=== PATIENT | female | born 1955 | race Caucasian/White ===

== ENCOUNTER → 2017-07-22 | Outpatient (CLI) | payer OTHER ==
[~2017-07-22] MED LIST: ACET-1256 PO; ALLERGY SHOTS INJ; ARMO150T4 PO; ARMO250T5 PO; ASCO1CAP3 PO; ASPI-435 PO; ASPI81TA28 PO; ATV5 PO; BACL10TA PO; BCTCR EXT; BND25X PO; BNTHP PO; CALCTAB5 PO; CHOL100010 PO; CLBCR15 EXT; CMBIN INH; CMPS25 PR; COLC0.6T54 PO; CRAN1CAP16 PO; CRS/10 PO; CYAN100048 PO; DIPH-384 PO; DOUNEB INH; DTRSR4 PO; EPP3/2 IM; EYED OP; FLUT0.15 NAE; GABA-112 PO; HYDR-5688 PO; INSPMPHMLG; IPRA1AER2 INH; LACTCAP3 PO; LEVO125T5 PO; LRS10 PO; MAGNSOL13 PO; MELO15TA10 PO; MISCCAP80 PO; MONT1TAB3 PO; NRN/300 PO; OMEG10002 PO; OMEG10007 PO; ONDA4TAB10 SL; OXGN; PILO5TAB10 PO; PRMVC PV; PROC10TA PO; PROM25TA9 PO; RANI300T PO; RANI300T2 PO; ROSU5TAB PO; SERT-234 PO; SPRIN/30 INH; SYMIN/8045 INH; SYN125 PO; TIOTCAP INH; TRAM-10 PO; VITATAB11 PO; VLM5CL PO; [UNRECOGNIZED DRUG - OTHER] PO
--- NOTE | 2017-07-23 14:36 | MAMMOGRAPHY REPORT ---
BILATERAL DIGITAL SCREENING MAMMOGRAM TOMOSYNTHESIS WITH CAD: 07/22/2017 CLINICAL HISTORY: Routine screening examination. TECHNIQUE: Breast tomosynthesis in addition to standard 2D mammography was performed. Current study was also evaluated with a Computer Aided Detection (CAD) system. COMPARISON: Comparison is made to exams dated: 04/18/2015 mammogram, 10/12/2014 mammogram, 01/18/2014 ul trasound, 01/18/2014 mammogram, 01/15/2014 mammogram, and 01/11/2013 mammogram - [facility] nter. BREAST COMPOSITION: The tissue of both breasts is heterogeneously dense, which may obscure small mas ses. FINDINGS: The glandular pattern is similar to prior mammograms. There are diffuse bilateral benign-a ppearing coarse, punctate and round microcalcifications. No suspicious mass, architectural distortio n or cluster of suspicious microcalcifications is seen. IMPRESSION: ACR BI-RADS CATEGORY 1: NEGATIVE There is no mammographic evidence of malignancy. A 1 year screening mammogram is recommended. The pa tient will receive written notification of the results. Approximately 10% of breast cancers are not detected with mammography. A negative mammographic report should not delay biopsy if a clinically suggestive mass is present. Vanessa Edmondson M.D. ay/:07/22/2017 14:21:26 Data Entry Machine Operator: Kasey HIRSCH(Heriberto)(M), [facility] letter sent: Normal 1/2 BI-RADS Code: ACR BI-RADS Category 1: Negative
== END | disposition home or self-care (01) ==
LOC: C.MAMM 13:02
PROVIDERS: ATTEND Family Medicine
DX: Z12.31 Encounter for screening mammogram for malignant neoplasm of breast (principal)

== ENCOUNTER 2017-08-21 13:48 | Emergency (ER) | payer OTHER ==
[~2017-08-21] VITALS: Ht 167.6 cm; Wt 110.0 kg
[~2017-08-21 13:48] MED LIST changes: -ARMO150T4 PO; -ASCO1CAP3 PO; -ASPI-435 PO; -BACL10TA PO; -CMPS25 PR; -COLC0.6T54 PO; -CRAN1CAP16 PO; -CRS/10 PO; -CYAN100048 PO; -DIPH-384 PO; -DTRSR4 PO; -FLUT0.15 NAE; -IPRA1AER2 INH; -LEVO125T5 PO; -MELO15TA10 PO; -MISCCAP80 PO; -MONT1TAB3 PO; -NRN/300 PO; -OMEG10002 PO; -ONDA4TAB10 SL; -OXGN; -PROC10TA PO; -PROM25TA9 PO; -RANI300T2 PO; -SPRIN/30 INH; -SYMIN/8045 INH
[2017-08-21 13:52] VITALS: TEMP 36.7; Ht 167.6 cm; Wt 110.0 kg
[2017-08-21] MEDS ORDERED: SODIUM CHLORIDE 0.9% 1000ML 1,000 ML IV STA (14:04)
[2017-08-21] MEDS ORDERED: ONDANSETRON INJ 2 MG/ML 2 ML VIAL IV STA (14:04)
--- NOTE | 2017-08-21 14:30 | DIAGNOSTIC IMAGING REPORT ---
CHEST ONE VIEW PORTABLE CLINICAL HISTORY: Fever. Sepsis. COMPARISON STUDY: Chest radiograph July 18, 2014. FINDINGS: Lung volumes are diminished. There is no consolidation. Lower lung interstitial thickening may be related to a hypoventilatory study. Cardiomediastinal silhouette is stable. The appearance of the chest is similar to exam of December 01, 2009. IMPRESSION: Lower lung interstitial thickening which is likely related to a hypoventilatory study. No acute cardiopulmonary findings. Electronically signed by: Sebastian Avendano M.D. 08/21/2017 2:28 PM Dictated Date/Time: 08/21/2017 2:27 PM
[2017-08-21 14:32] LABS: BASO % 0.1 %; BASO ABS # 0.01 K/uL (0-0.2); HEMATOCRIT 42.7 % (37-47); HEMOGLOBIN 14.2 g/dL (12.0-16.0); IG# 0.03 K/uL (0.00-0.02); LYMPH % 13.6 %; LYMPH ABS # 0.99 K/uL (1.2-3.4); MEAN CORPUSCULAR HEMOGLOBIN 29.3 pg (25-34); MEAN CORPUSCULAR HGB CONC 33.3 g/dl (32-36); MEAN PLATELET VOLUME 10.6 fL (7.4-10.4); MONO % 4.9 %; MONO ABS # 0.36 K/uL (0.11-0.59); NEUT ABS # 5.89 K/uL (1.4-6.5); PLATELET COUNT 221 K/uL (130-400); RED CELL DISTRIBUTION WIDTH SD 47.7 fL (36.4-46.3); WHITE BLOOD COUNT 7.28 K/uL (4.8-10.8)
[2017-08-21] MEDS ORDERED: KETOROLAC TROMETHAMINE 30 MG/ML VIAL IV STA (14:38)
[2017-08-21 14:48] LABS: ALBUMIN 3.6 gm/dl (3.4-5.0); ALT/SGPT 42 U/L (12-78); BLOOD UREA NITROGEN 22 mg/dl (7-18); CALCIUM 8.7 mg/dl (8.5-10.1); CARBON DIOXIDE 28 mmol/L (21-32); CREATININE 0.83 mg/dl (0.60-1.20); GLUCOSE 310 mg/dl (70-99); LIPASE 58 U/L (73-393); POTASSIUM 3.4 mmol/L (3.5-5.1); SODIUM 140 mmol/L (136-145)
[2017-08-21 14:50] LABS: PTT PATIENT 26.1 SECONDS (21.0-31.0)
[2017-08-21 14:51] LABS: ALKALINE PHOSPHATASE 84 U/L (45-117); AST/SGOT 28 U/L (15-37)
[2017-08-21 14:58] LABS: CKMB 1.5 ng/ml (0.5-3.6)
[2017-08-21] MEDS ORDERED: LEVO125T5 PO (15:04)
[2017-08-21] MEDS ORDERED: SERT-234 PO (15:04)
[2017-08-21] MEDS ORDERED: NRN/300 PO (15:04)
[2017-08-21] MEDS ORDERED: CRAN1CAP16 PO (15:04)
[2017-08-21] MEDS ORDERED: BACL10TA PO (15:04)
[2017-08-21] MEDS ORDERED: OMEG10002 PO (15:04)
[2017-08-21] MEDS ORDERED: TRAM-10 PO (15:04)
[2017-08-21] MEDS ORDERED: IPRA1AER2 INH (15:04)
[2017-08-21] MEDS ORDERED: CRS/10 PO (15:04)
[2017-08-21] MEDS ORDERED: ARMO150T4 PO (15:04)
[2017-08-21] MEDS ORDERED: RANI300T2 PO (15:04)
[2017-08-21] MEDS ORDERED: FLUT0.15 NAE (15:04)
[2017-08-21] MEDS ORDERED: MELO15TA10 PO (15:04)
[2017-08-21] MEDS ORDERED: PRMVC PV (15:04)
[2017-08-21] MEDS ORDERED: MONT1TAB3 PO (15:04)
[2017-08-21] MEDS ORDERED: VITATAB11 PO (15:04)
[2017-08-21] MEDS ORDERED: SYMIN/8045 INH (15:04)
[2017-08-21] MEDS ORDERED: ASCO1CAP3 PO (15:04)
[2017-08-21] MEDS ORDERED: MISCCAP80 PO (15:04)
[2017-08-21] MEDS ORDERED: SPRIN/30 INH (15:04)
[2017-08-21] MEDS ORDERED: DIPH-384 PO (15:04)
[2017-08-21] MEDS ORDERED: CYAN100048 PO (15:04)
[2017-08-21] MEDS ORDERED: DTRSR4 PO (15:04)
[2017-08-21] MEDS ORDERED: PILO5TAB10 PO ×2 (15:04)
[2017-08-21] MEDS ORDERED: OXGN (15:04)
[2017-08-21] MEDS ORDERED: ASPI-435 PO (15:04)
[2017-08-21] MEDS ORDERED: PROM25TA9 PO (15:04)
[2017-08-21] MEDS ORDERED: COLC0.6T54 PO (15:04)
[2017-08-21] MEDS ORDERED: PROC1TAB5 PO (15:04)
[2017-08-21 15:14] LABS: INFLUENZA B ANTIGEN Neg for Influ B (NEG)
[2017-08-21] MEDS ORDERED: ONDA4TAB10 SL (16:02)
[2017-08-21] MEDS ORDERED: PROCHLORPERAZINE 5 MG/ML 2 ML VIAL IV STA (16:09)
[2017-08-21] MEDS ORDERED: CMPS25 PR (16:11)
--- NOTE | 2017-08-21 16:14 | EMERGENCY ROOM VISIT NOTE ---
History Report prepared by Shannan: Bobby Willett Under the Supervision of: Dr. Adam Andre D.O. First contact with patient: 13:58 Chief Complaint: FLU LIKE SX Stated Complaint: NAUSEA,VOMITING,FATIGUE,CHILLS,SWEATS,DIZZINESS History of Present Illness The patient is a 61 year old female who presents to the Emergency Room with complaints of flu like symptoms that began 2 weeks ago. She complains of nausea , vomiting, dizziness, chills, cough, congestion, sweating, and abdominal pain. She states she has lost 14 pounds in 5 days due to limited PO intake due to the nausea. Per her , he states that she is on medication for scleredema and that the medication might be compromising her immune system. When she saw her PCP (Dr. Luiza Leon) last week, she was prescribed Levaquin. Source of History: patient, spouse/significant other Onset: 2 weeks ago Position: other (global) Timing: constant Associated Symptoms: + chills, + cough, + nausea, + vomiting, + abdominal pain Note: Patient complains of dizziness, congestion, sweating, and limited PO intake. Review of Systems See HPI for pertinent positives & negatives. A total of 10 systems reviewed and were otherwise negative. Past Medical & Surgical Medical Problems: (1) DM (diabetes mellitus) Social History Smoking Status: Never Smoker Alcohol Use: none Drug Use: none Marital Status: single Occupation Status: unemployed Current/Historical Medications Scheduled Armodafinil (Nuvigil), 1 TAB PO UD Ascorbic Acid (Vitamin C), 500 MG PO QAM Aspirin (Aspirin 81), 81 MG PO QPM Baclofen (Lioresal), 20 MG PO BID Budesonide/Formoterol Fumarate (Symbicort 80/4.5 Inhaler), 2 PUFFS INH BID Colchicine (Colchicine), 0.6 MG PO AMPM Cranberry (Vaccinium Macrocarp (Cranberry), 1 CAP PO QAM Cyanocobalamin (Vitamin B-12), 1,000 MG PO QAM Diphenhydramine Hcl (Allergy), 25 MG PO QAM Estrogens, Conjugated (Premarin), 1 APPLN PV 2XWK Fluticasone Propionate (Nasal) (Flonase Allergy Relief), 2 SPRAYS MIRNA AMPM Gabapentin (Neurontin), 300 MG PO AMPM Home O2 Therapy (Oxygen), 2 LITERS NA HS Levothyroxine Sodium (Levothyroxine Sodium), 125 MCG PO DAILY Meloxicam (Mobic), 15 MG PO QAM Montelukast Sodium (Singulair), 10 MG PO QPM Isabela-3 Fatty Acids (Fish Oil), 1,000 MG PO AMPM Ondasetron Odt (Zofran Odt), 4 MG SL Q6H Pilocarpine (Salagen), 10 MG PO QAM Pilocarpine (Salagen), 5 MG PO QPM Probiotic Product (Probiotic), 1 CAP PO BID Prochlorperazine (Compazine Supp), 25 MG MD Q12H Prochlorperazine Maleate (Compazine), 10 MG PO BID Promethazine Hcl (Phenergan), 25 MG PO QAM Ranitidine Hcl (Zantac), 300 MG PO AMPM Rosuvastatin Calcium (Crestor), 10 MG PO QAM Sertraline (Zoloft), 200 MG PO QPM Tiotropium Raymond (Spiriva Handihaler), 1 CAP INH DAILY Tolterodine Tartrate (Detrol LA), 4 MG PO QAM Scheduled PRN Ipratropium-Albuterol (Combivent Respimat), 1 PUFFS INH UD PRN for SOB/Wheezing Tramadol (Ultram), 50 MG PO UD PRN for Pain Vitamins W/ Lipotropics (Lipoflavonoid), 1 TAB PO UD PRN for TINITUS Allergies Coded Allergies: Albuterol (Verified Allergy, Severe, SHORTNESS OF BREATH, 08/21/17) pt reports fast heartbeat, chest pain, trouble breathing, lightheadedness Aspirin (Verified Allergy, Intermediate, "SEVERE STOMACH CRAMPS, PAIN, SWELLING, NAUSEA, BELCHING", 08/21/17) pt reports stomach cramps, pain, swelling, nausea, "bowel issues" and belching Azithromycin (Verified Allergy, Mild, 08/21/17) Duloxetine (Verified Allergy, Mild, 08/21/17) Fluoxetine (Verified Allergy, Mild, 08/21/17) Oxycodone (Verified Allergy, Mild, 08/21/17) Propoxyphene (Verified Allergy, Mild, 08/21/17) Ropinirole (Verified Allergy, Mild, 08/21/17) Animal Dander (Verified Allergy, Unknown, ., 08/21/17) Beech Tree (Verified Allergy, Unknown, UNKNOWN, 08/21/17) [place] (Verified Allergy, Unknown, UNKNOWN, 08/21/17) Celecoxib (Verified Allergy, Unknown, ., 08/21/17) Cephalexin (Verified Allergy, Unknown, ., 08/21/17) Clarithromycin (Verified Allergy, Unknown, ., 08/21/17) Clindamycin (Verified Allergy, Unknown, ., 08/21/17) Dust (Verified Allergy, Unknown, ., 08/21/17) Erythromycin (Verified Allergy, Unknown, 08/21/17) Grass (Verified Allergy, Unknown, ., 08/21/17) Indigotindisulfonate (Verified Allergy, Unknown, ., 08/21/17) Maple Tree (Verified Allergy, Unknown, UNKNOWN, 08/21/17) Molds and Smuts (Verified Allergy, Unknown, ., 08/21/17) Nortriptyline (Verified Allergy, Unknown, ., 08/21/17) Paroxetine (Verified Allergy, Unknown, ., 08/21/17) Pregabalin (Verified Allergy, Unknown, ., 08/21/17) Venlafaxine (Verified Allergy, Unknown, ., 08/21/17) Sumatriptan (Verified Adverse Reaction, Severe, "SEVERE JAW AND FACE LOCKING PAIN", 08/21/17) pt reports "severe jaw and face locking pain" Doxycycline (Verified Adverse Reaction, Intermediate, EXTREME STOMACH PAIN , ANKLE & LEG SWELLING, 08/21/17) pt reports stomach pain and ankle/leg swelling Metoclopramide (Verified Adverse Reaction, Intermediate, "EXTREME MUSCLE SPASMS IN LEGS, EARS, AND STOMACH", 08/21/17) pt states she experienced muscle spasm in legs, ears and stomach Morphine (Verified Adverse Reaction, Intermediate, "FELT DIZZY, NAUSEOUS, LOSS OF MYSELF", 08/21/17) pt reports feeling dizzy, nausea, and "loss of myself" Azelastine (Verified Adverse Reaction, Unknown, NOSE BLEEDS, 08/21/17) nasal spray causes nose bleeds Physical Exam Vital Signs Date Time Temp Pulse Resp B/P (MAP) Pulse Ox O2 Delivery O2 Flow Rate FiO2 08/21/17 16:05 74 20 164/66 93 Room Air 08/21/17 15:16 72 08/21/17 13:52 36.7 78 18 155/77 94 Room Air Physical Exam CONSTITUTIONAL/VITAL SIGNS: Reviewed / noted above. GENERAL: Non-toxic in appearance. INTEGUMENTARY: Warm, dry, and [place]. HEAD: Normocephalic. EYES: without scleral icterus or trauma. ENT/OROPHARYNX: clear and moist. LYMPHADENOPATHY/NECK: Is supple without lymphadenopathy or meningismus. RESPIRATORY: Lungs clear and equal. CARDIOVASCULAR: Regular rate and rhythm. GI/ABDOMEN: Soft and nontender. No organomegaly or pulsatile mass. No rebound or guarding. Normal bowel sounds. EXTREMITIES: Warm and well perfused. BACK: No CVA tenderness. NEUROLOGICAL: Intact without focal deficits. PSYCHIATRIC: normal affect. MUSCULOSKELETAL: Normally developed with good muscle tone. Medical Decision & Procedures ER Provider Diagnostic Interpretation: Radiology results as stated below per my review and radiologist interpretation: CHEST ONE VIEW PORTABLE CLINICAL HISTORY: Fever. Sepsis. COMPARISON STUDY: Chest radiograph July 18, 2014. FINDINGS: Lung volumes are diminished. There is no consolidation. Lower lung interstitial thickening may be related to a hypoventilatory study. Cardiomediastinal silhouette is stable. The appearance of the chest is similar to exam of December 01, 2009. IMPRESSION: Lower lung interstitial thickening which is likely related to a hypoventilatory study. No acute cardiopulmonary findings. Electronically signed by: Sebastian Avendano M.D. 08/21/2017 2:28 PM Dictated Date/Time: 08/21/2017 2:27 PM Laboratory Results 08/21/17 14:20 Red Blood Count 4.85, Mean Corpuscular Volume 88.0, Mean Corpuscular Hemoglobin 29.3, Mean Corpuscular Hemoglobin Concent 33.3, Mean Platelet Volume 10.6, Neutrophils (%) (Auto) 81.0, Lymphocytes (%) (Auto) 13.6, Monocytes (%) (Auto) 4.9, Eosinophils (%) (Auto) 0.0, Basophils (%) (Auto) 0.1, Neutrophils # (Auto) 5.89, Lymphocytes # (Auto) 0.99, Monocytes # (Auto) 0.36, Eosinophils # (Auto) 0.00, Basophils # (Auto) 0.01 08/21/17 14:20 Test 08/21/17 14:20 08/21/17 14:30 08/21/17 14:36 White Blood Count 7.28 K/uL (4.8-10.8) Red Blood Count 4.85 M/uL (4.2-5.4) Hemoglobin 14.2 g/dL (12.0-16.0) Hematocrit 42.7 % (37-47) Mean Corpuscular Volume 88.0 fL (80-100) Mean Corpuscular Hemoglobin 29.3 pg (25-34) Mean Corpuscular Hemoglobin Concent 33.3 g/dl (32-36) Platelet Count 221 K/uL (130-400) Mean Platelet Volume 10.6 fL (7.4-10.4) Neutrophils (%) (Auto) 81.0 % Lymphocytes (%) (Auto) 13.6 % Monocytes (%) (Auto) 4.9 % Eosinophils (%) (Auto) 0.0 % Basophils (%) (Auto) 0.1 % Neutrophils # (Auto) 5.89 K/uL (1.4-6.5) Lymphocytes # (Auto) 0.99 K/uL (1.2-3.4) Monocytes # (Auto) 0.36 K/uL (0.11-0.59) Eosinophils # (Auto) 0.00 K/uL (0-0.5) Basophils # (Auto) 0.01 K/uL (0-0.2) RDW Standard Deviation 47.7 fL (36.4-46.3) RDW Coefficient of Variation 15.0 % (11.5-14.5) Immature Granulocyte % (Auto) 0.4 % Immature Granulocyte # (Auto) 0.03 K/uL (0.00-0.02) Prothrombin Time 10.5 SECONDS (9.0-12.0) Prothromb Time International Ratio 1.0 (0.9-1.1) Activated Partial Thromboplast Time 26.1 SECONDS (21.0-31.0) Partial Thromboplastin Ratio 1.0 Anion Gap 8.0 mmol/L (3-11) Est Creatinine Clear Calc Drug Dose 90.5 ml/min Estimated GFR () 88.8 Estimated GFR (Non- 76.6 BUN/Creatinine Ratio 26.2 (10-20) Calcium Level 8.7 mg/dl (8.5-10.1) Total Bilirubin 0.4 mg/dl (0.2-1) Direct Bilirubin < 0.1 mg/dl (0-0.2) Aspartate Amino Transf (AST/SGOT) 28 U/L (15-37) Alanine Aminotransferase (ALT/SGPT) 42 U/L (12-78) Alkaline Phosphatase 84 U/L (45-117) Total Creatine Kinase 132 U/L (26-192) Creatine Kinase MB 1.5 ng/ml (0.5-3.6) Creatine Kinase MB Ratio 1.1 (0-3.0) Troponin I < 0.015 ng/ml (0-0.045) Total Protein 7.0 gm/dl (6.4-8.2) Albumin 3.6 gm/dl (3.4-5.0) Lipase 58 U/L (73-393) Beta-Hydroxybutyric Acid 12.82 mg/dL (0.2-2.81) Urine Color YELLOW Urine Appearance CLEAR (CLEAR) Urine pH 6.0 (4.5-7.5) Urine Specific [place] 1.036 (1.000-1.030) Urine Protein NEG (NEG) Urine Glucose (UA) 3+ (NEG) Urine Ketones 3+ (NEG) Urine Occult Blood NEG (NEG) Urine Nitrite NEG (NEG) Urine Bilirubin NEG (NEG) Urine Urobilinogen NEG (NEG) Urine Leukocyte Esterase SMALL (NEG) Urine WBC (Auto) >30 /hpf (0-5) Urine RBC (Auto) 0-4 /hpf (0-4) Urine Hyaline Casts (Auto) 0 /lpf (0-5) Urine Epithelial Cells (Auto) >30 /lpf (0-5) Urine Bacteria (Auto) NEG (NEG) Influenza Type A Antigen Neg for Influ A (NEG) Influenza Type B Antigen Neg for Influ B (NEG) Laboratory results as stated above per my review. Medications Administered Medications (Trade) Dose Ordered Sig/Nicki Route Start Time Stop Time Status Last Admin Dose Admin Sodium Chloride 1,000 ml @ 999 mls/hr Q1H1M STAT IV 08/21/17 14:04 08/21/17 15:04 DC 08/21/17 14:44 999 MLS/HR Ondansetron HCl (Zofran Inj) 4 mg NOW STAT IV 08/21/17 14:04 08/21/17 14:16 DC 08/21/17 14:43 4 MG Ketorolac Tromethamine (Toradol Inj) 30 mg NOW STAT IV 08/21/17 14:38 08/21/17 14:39 DC 08/21/17 14:44 30 MG Prochlorperazine Edisylate (Compazine Inj) 10 mg NOW STAT IV 08/21/17 16:09 08/21/17 16:10 DC 08/21/17 16:15 10 MG ECG Indication: vomiting Rate (beats per minute): 74 Rhythm: normal sinus Findings: no ectopy, other (No acute injury) Change: Patient's EKG interpreted by me. ED Course 1358: Previous medical records were reviewed. The patient was evaluated in room B10. A complete history and physical examination was performed. 1404: Zofran Inj 4mg IV, Sodium Chloride 1000 ml @ 999 mls/hr IV. 1438: Toradol Inj 30 mg IV. 1600: On reevaluation, the patient is doing well. I discussed the results and findings with the patient. She verbalized agreement of the treatment plan. She was discharged home. Medical Decision The patient's history was concerning for nausea, vomiting, diarrhea, and abdominal pain. Differential diagnosis: Etiologies such as gastroenteritis, food borne illness, infections, appendicitis , diverticulitis, inflammatory bowel disease, obstruction, GI bleed, biliary pathology, as well as others were entertained. This is a 61-year-old female who presents to the ED with a chief complaint of flulike symptoms per she reports palmarly nausea vomiting as well as some dizziness. Her symptoms started a couple of weeks ago. She also reports congestion for the past week and some wheezing on occasion. She reports weight loss of about 14 pounds in the past 5 days. She saw her PCP last week and was started on Levaquin and omeprazole for her symptoms. The patient states that she discontinued taking the Levaquin because she did not feel was making her better. She does take methotrexate for some skin issues and she has been on this for the past several months. Her vital signs are stable. Her physical exam was unremarkable. An EKG shows a normal sinus rhythm without ectopy or acute injury. Chest x-ray was negative for acute disease. CBC is normal, BUN is 22 and glucose is 310. Complete metabolic panel was otherwise unremarkable. Troponin was negative and lipase was negative. Flu swab was negative. Urine revealed 3+ ketones and otherwise appeared contaminated. She does have a history of diabetes. The patient was treated here with 1 L normal saline IV, IV Compazine and IV Zofran. He was also given some IV Toradol. She was reassessed. Her symptoms seem to be somewhat improved. She is felt to be stable for discharge. She was given prescriptions for rectal Compazine and Zofran ODT. Medication Reconcilliation Current Medication List: was personally reviewed by me Blood Pressure Screening Patient's blood pressure: Elevated blood pressure Blood pressure disposition: Elevated BP felt to be situational Impression Primary Impression: Nausea & vomiting Additional Impressions: Dehydration Hyperglycemia Scribe Attestation The scribe's documentation has been prepared under my direction and personally reviewed by me in its entirety. I confirm that the note above accurately reflects all work, treatment, procedures, and medical decision making performed by me. Departure Information Dispostion Home / Self-Care Prescriptions Prochlorperazine (Compazine Supp) 25 Mg Supp 25 MG MD Q12H for Nausea or Vomiting, #15 SUPP Prov: Adam Andre D.O. 08/21/17 Ondasetron Odt (ZOFRAN ODT) 4 Mg Tab 4 MG SL Q6H for Nausea, #20 TAB Prov: Adam Andre D.O. 08/21/17 Referrals Jenni Sandy D.O. (PCP) Patient Instructions My [facility] Additional Instructions Zofran: Allow one tablet to dissolve under the tongue every 6 hours as needed for nausea or vomiting. Follow-up with your doctor for further care and evaluation in 1-2 days. Return to the emergency department for worsening or new symptoms or any concerns. You have been examined and treated today on an emergency basis only. This is not a substitute for, or an effort to provide, complete comprehensive medical care. It is impossible to recognize and treat all injuries or illnesses in a single emergency department visit. It is therefore important that you follow up closely with your doctor. Call as soon as possible for an appointment. Problem Qualifiers
[2017-08-21 16:50] VITALS: BP 158/88; PULSE 76; O2SAT 98
--- NOTE | 2017-08-23 18:28 | Pharmacy Progress Note ---
ED Pharmacist Culture FollowUp Date of Service: Aug 23, 2017. Patient with gardnerella and lactobacillus in the urine. No further treatment needed as per Dr. Andre as likely not pathogenic.
== END 2017-08-21 16:52 | disposition home or self-care (01) ==
LOC: C.EDB 13:51
DX: E86.0 Dehydration (principal); E11.65 Type 2 diabetes mellitus with hyperglycemia; M34.9 Systemic sclerosis, unspecified; Z79.82 Long term (current) use of aspirin; Z79.899 Other long term (current) drug therapy

== ENCOUNTER 2020-08-10 16:34 | Inpatient (IN) ==
--- NOTE | 2020-08-10 17:18 | Emergency Department Note ---
Impression & Plan Pleural effusion, Shortness of breath, Hypoxia ED Provider Note NAME: MAKAYLA SAUCDEO AGE: 64 SEX: F : 1955 ARRIVES VIA: Walk-In INFORMANT: Patient, ED PROVIDER(S): Anish Lombardi DO CHIEF COMPLAINT: Shortness of breath HPI: The patient is a 64-year-old female who presented to the emergency department for an evaluation of difficulty breathing. The patient states that she recently had gone through a significant emotional issue with her who recently . The was this week. The patient states that she has been noticing a decline in her own health and noted shortness of breath as well as chest tightness over the course of the last few days. The symptoms became much worse over the last 24 hours. She notices a cough which is not productive. She also notices significant dyspnea on exertion as well as chest tightness. She was in contact with her family doctor today who recommended that she go to the emergency department for further evaluation. She denies having any recent fever. She does have a history of renal insufficiency and has been compliant with all of her medications as well as her treatments. The patient states that she was not tested for COVID-19. Patient was not exposed to COVID-19 as far she knows. She notices no hemoptysis. ROS: See above HPI for pertinent positives & negatives. A total of 10 systems reviewed and were otherwise negative. PAST MEDICAL HISTORY: See Below PAST SURGICAL HISTORY: See Below FAMILY HISTORY: See Below SOCIAL HISTORY: See Below HOME MEDICATIONS: See Below ALLERGIES: See Below VITALS: See Below PHYSICAL EXAMINATION: GENERAL: The patient is awake and alert. She is somewhat anxious appearing. EYES: The conjunctivae are clear. The pupils are round and reactive. EARS, NOSE, MOUTH AND THROAT: The nose is without any evidence of any deformity. NECK: The neck is nontender and supple. RESPIRATORY: Shallow respirations were noted. Diminished breath sounds are noted in the right lung field. There were rales at both bases. There was conversational dyspnea appreciated. CARDIOVASCULAR: Tachycardic rate with regular rhythm was noted. No definite murmur was appreciated. GASTROINTESTINAL: The abdomen is soft. Abdomen is nontender. MUSCULOSKELETAL/EXTREMITIES: There is no evidence of gross deformity full range of motion is noted in the hips and shoulders. SKIN: Trace pedal edema was noted bilaterally. There was no calf tenderness elicited. A port was noted in the right chest wall. There is some edema in the right upper extremity. NEUROLOGIC: Patient is awake alert and oriented x3. MEDICAL DECISION MAKING: The patient is a 64-year-old female who presented to the emergency department for an evaluation of difficulty breathing. The patient was having very significant dyspnea especially on exertion. Physical exam appear to be consistent with pneumonia at first. For this reason the patient was treated with IV fluids IV antibiotics and further laboratory and radiographic studies were obtained. Chest x-ray appears to be more consistent with a large pleural effusion which is very symptomatic for the patient. I discussed the patient's laboratory and radiographic studies with her. She was placed on supplemental oxygen with significant improvement of her symptoms. I discussed her case with the on-call [facility] hospitalist group. They have agreed to evaluate the patient in the emergency department for further management and disposition. Triage Nursing notes reviewed. Prior medical records reviewed Vital Signs: reviewed and remarkable for hypoxia. Differential diagnosis: Reactive airway disease, pneumonia, pneumothorax, COPD, CHF, infections, cardiac ischemia, pulmonary embolism, musculoskeletal, gastrointestinal, as well as other pathologies. ER treatment provided: See below Diagnostics interpreted by me: ECG: EKG was obtained in the emergency department. My interpretation is normal sinus rhythm at 93 bpm. There was no ectopy. There was no acute ST segment abnormalities noted. This was compared to a tracing from August [id number]. No significant changes were noted. Cardiac Monitoring: An order was placed for continuous cardiac monitoring. The monitor shows a rate of 82 bpm with sinus rhythm. Laboratory studies: As stated above and show below. Imaging studies: See below Consultation(s): 1915: I discussed this case with the [facility]ist group. They will evaluate the patient in the emergency department Past Med/Surg History Medical History (Updated 08/10/20 @ 20:54 by Anish Lombardi DO) Anxiety Asthma rarely uses PRN inh Degenerative disc disease Depression Diabetes mellitus Fibromyalgia Gastroparesis GERD (gastroesophageal reflux disease) Glaucoma High cholesterol History of IBS Hypothyroid Insulin pump in place Liver lesion Migraine Morbid obesity On home oxygen therapy 1 LPM qHS ROJELIO (obstructive sleep apnea) CPAP DEVICE Osteoarthritis Overactive bladder Scleredema Sjogren's disease Urinary leakage Surgical History Cataract RT/LEFT H/O brain surgery CHIARI MALFORMATION 2013 H/O breast biopsy H/O eye surgery LASER SURGERY FOR GLAUCOMA H/O: hysterectomy History of biopsy History of colonoscopy History of esophagogastroduodenoscopy (EGD) History of tooth extraction Hx of cholecystectomy Family History Daughter Family history of reaction to anesthesia PONV Social History Smoking Status: Never smoker Second Hand Exposure: No; Hx Alcohol Use: No Hx Substance Use: No Preferred Language: Irish Communication Ability: Effective Catering Sous Chef Required: No Beliefs That Will Affect Care: None Current Living Situation: Spouse Feels Safe at Home: Yes Assistive Devices: Glasses Allergies Allergies Allergy/AdvReac Type Severity Reaction Status Date / Time albuterol Allergy Severe SHORTNESS Verified 05/16/20 13:12 OF BREATH niacinamide Allergy Severe Sweating, Verified 05/16/20 13:12 redness, hives, sob nortriptyline Allergy Severe STOPPED Verified 05/16/20 13:12 BREATHING pregabalin Allergy Intermediate ANKLE Verified 05/16/20 13:12 SWELLING ropinirole Allergy Intermediate ANKLE Verified 05/16/20 13:12 SWELLING venlafaxine Allergy Intermediate ANKLE Verified 05/16/20 13:12 SWELLING animal dander Allergy Mild CONGESTION Verified 05/16/20 13:12 birch Allergy Unknown SHOWED UP Verified 05/16/20 13:12 ON ALLERGY TESTING cephalexin Allergy Unknown CAN'T Verified 05/16/20 13:12 REMEMBER clarithromycin Allergy Unknown CAN'T Verified 05/16/20 13:12 REMEMBER clindamycin Allergy Unknown CAN'T Verified 05/16/20 13:12 REMEMBER erythromycin base Allergy Unknown CAN'T Verified 05/16/20 13:12 REMEMBER grass pollen-perennial rye, Allergy Unknown + WITH Verified 05/16/20 13:12 standar ALLERGY TESTING mold Allergy Unknown ALLERGY Verified 05/16/20 13:12 TESTED + sumatriptan AdvReac Severe "SEVERE Verified 05/16/20 13:12 JAW AND FACE LOCKING PAIN" aspirin AdvReac Intermediate "SEVERE Verified 05/16/20 13:12 STOMACH CRAMPS, PAIN, SWELLING, NAUSEA, BELCHING" celecoxib AdvReac Intermediate FELT Verified 05/16/20 13:12 "GOING INSANE" doxycycline AdvReac Intermediate EXTREME Verified 05/16/20 13:12 STOMACH PAIN, ANKLE & LEG SWELLING metoclopramide AdvReac Intermediate "EXTREME Verified 05/16/20 13:12 MUSCLE SPASMS IN LEGS, EARS, AND STOMACH" morphine AdvReac Intermediate "FELT Verified 05/16/20 13:12 DIZZY, NAUSEOUS, LOSS OF MYSELF" paroxetine AdvReac Intermediate "TOO Verified 05/16/20 13:12 STRONG OF MED" duloxetine AdvReac Mild SWEATING Verified 05/16/20 13:12 fluoxetine AdvReac Mild SWEATING Verified 05/16/20 13:12 oxycodone AdvReac Mild SPACED OUT Verified 05/16/20 13:12 propoxyphene AdvReac Mild SPACED OUT Verified 05/16/20 13:12 azelastine AdvReac Unknown NOSE BLEEDS Verified 05/16/20 13:12 [place] Allergy Unknown ALLERGY Uncoded 05/16/20 13:12 TESTING Dust Allergy Unknown ALLERGY Uncoded 05/16/20 13:12 TESTING [place] Allergy Unknown ALLERGY Uncoded 05/16/20 13:12 TESTING Home Meds Home Medications Medication Instructions Recorded Confirmed ascorbic acid (vitamin C) 500 mg 500 mg PO DAILY cap 04/07/18 08/10/20 capsule aspirin 81 mg tablet,delayed 81 mg PO DAILY 04/07/18 08/10/20 release cranberry 400 mg capsule 400 mg PO DAILY 04/07/18 08/10/20 fluticasone propionate 50 2 sprays INTNAS DAILY 04/07/18 08/10/20 mcg/actuation nasal spray,suspension gabapentin 300 mg capsule 600 mg PO BID cap 04/07/18 08/10/20 omega-3 fatty acids 1,000 mg 1,000 mg PO DAILY 04/07/18 08/10/20 capsule pilocarpine HCl 5 mg tablet 3 tab PO TID tab 04/07/18 08/10/20 prochlorperazine maleate 10 mg 10 mg PO Q8H PRN tab 04/07/18 08/10/20 tablet promethazine 25 mg tablet 25 mg PO BID PRN tab 04/07/18 08/10/20 rosuvastatin 20 mg tablet 20 mg PO QAM 04/07/18 08/10/20 sertraline 100 mg tablet 100 mg PO HS tab 04/07/18 08/10/20 tolterodine 4 mg capsule,extended 4 mg PO QAM 04/07/18 08/10/20 release 24 hr Probiotic 3,000 mmu cells PO BID 10/04/18 08/10/20 tramadol 50 mg tablet 50 mg PO Q6H PRN 07/27/19 08/10/20 Combivent Respimat 1 puff INHALATION QID 12/15/19 08/10/20 Imodium Multi-Symptom Relief 2 tab PO QAM 12/15/19 08/10/20 buspirone 5 mg PO BID 12/15/19 08/10/20 colestipol 1 g PO BID 12/15/19 08/10/20 ferrous gluconate 324 mg PO DAILY 12/15/19 08/10/20 hydroxychloroquine 400 mg PO QAM 12/15/19 08/10/20 lisinopril 20 mg PO QAM 12/15/19 08/10/20 magnesium 200 mg PO DAILY 12/15/19 08/10/20 omeprazole 40 mg PO BID 12/15/19 08/10/20 primidone 50 mg PO HS 12/15/19 08/10/20 armodafinil 250 mg PO DAILY 08/10/20 08/10/20 baclofen 20 mg PO BID 08/10/20 08/10/20 insulin aspart U-100 [Novolog unit 08/10/20 U-100 Insulin aspart] levothyroxine [Synthroid] 175 mcg PO DAILY 08/10/20 08/10/20 lorazepam 0.5 mg PO Q8H PRN 08/10/20 08/10/20 simethicone 80 mg PO Q6H PRN 08/10/20 08/10/20 sucralfate 10 ml PO QID 08/10/20 08/10/20 Results & Data (ED) Vital Signs Vital Signs - 24 hr 08/10/20 16:37 08/10/20 16:47 08/10/20 17:00 Temperature 37 C Temperature Source Temporal Artery Scan Pulse Rate 94 H 89 Pulse Rate from SpO2 Sensor Pulse Rhythm Regular Respiratory Rate 19 20 19 Respiratory Effort / Characteristics Spontaneous Blood Pressure 147/77 H Blood Pressure Mean 100 Pulse Oximetry 90 94 90 Oxygen Delivery Method Room Air Nasal Cannula Room Air Oxygen Flow Rate 2 Sepsis Recent Fever Within 48 Hours No Sepsis New/Unexplained Change in Mental Status N/A Sepsis Action Taken by Nursing No Action Required 08/10/20 17:30 08/10/20 18:00 08/10/20 18:30 Temperature Temperature Source Pulse Rate 86 Pulse Rate from SpO2 Sensor Pulse Rhythm Respiratory Rate 19 19 24 Respiratory Effort / Characteristics Spontaneous Spontaneous Spontaneous Blood Pressure Blood Pressure Mean Pulse Oximetry 90 90 86 L Oxygen Delivery Method Room Air Room Air Room Air Oxygen Flow Rate 2 Sepsis Recent Fever Within 48 Hours Sepsis New/Unexplained Change in Mental Status Sepsis Action Taken by Nursing 08/10/20 18:42 08/10/20 19:00 08/10/20 19:30 Temperature Temperature Source Pulse Rate 89 86 92 H Pulse Rate from SpO2 Sensor 90 86 98 H Pulse Rhythm Respiratory Rate 20 21 18 Respiratory Effort / Characteristics Spontaneous Blood Pressure 148/69 H 157/71 H 167/78 H Blood Pressure Mean 95 99 107 Pulse Oximetry 94 96 93 Oxygen Delivery Method Nasal Cannula Nasal Cannula Oxygen Flow Rate 2 2 Sepsis Recent Fever Within 48 Hours Sepsis New/Unexplained Change in Mental Status Sepsis Action Taken by Nursing 08/10/20 20:00 08/10/20 20:35 08/10/20 20:45 Temperature Temperature Source Pulse Rate 93 H 101 H 101 H Pulse Rate from SpO2 Sensor 93 H 104 H Pulse Rhythm Respiratory Rate 25 H 24 24 Respiratory Effort / Characteristics Spontaneous Blood Pressure 195/99 H 188/106 H 188/106 H Blood Pressure Mean 131 133 Pulse Oximetry 92 92 92 Oxygen Delivery Method Nasal Cannula Room Air Oxygen Flow Rate 2 Sepsis Recent Fever Within 48 Hours Sepsis New/Unexplained Change in Mental Status Sepsis Action Taken by Prison Medications Current Medication List: was personally reviewed by me Laboratory Data Attestation: I reviewed the patient's lab results. Result diagrams: 08/10/20 18:24 08/10/20 18:24 Lab Results 08/10/20 08/10/20 08/10/20 Range/Units 17:45 17:45 18:24 WBC 8.15 (4.8-10.8) K/uL RBC 5.01 (4.2-5.4) M/uL Hgb 13.0 (12.0-16.0) g/dL Hct 40.9 (37-47) % MCV 81.6 (80-100) fL MCH 25.9 (25-34) pg MCHC 31.8 L (32-36) g/dL RDW Std Deviation 53.7 H (36.4-46.3) fL RDW Coeff of Shyla 18.0 H (11.5-14.5) % Plt Count 324 (130-400) K/uL MPV 10.0 (7.4-10.4) fL Immature Gran % (Auto) 0.2 % Neut % (Auto) 73.8 % Lymph % (Auto) 12.3 % Lipscomb % (Auto) 11.7 % Eos % (Auto) 1.8 % Baso % (Auto) 0.2 % Neut # (Auto) 6.01 (1.4-6.5) K/uL Lymph # (Auto) 1.00 L (1.2-3.4) K/uL Lipscomb # (Auto) 0.95 H (0.11-0.59) K/uL Eos # (Auto) 0.15 (0-0.5) K/uL Baso # (Auto) 0.02 (0-0.2) K/uL Immature Gran # (Auto) 0.02 (0.00-0.02) K/uL PT (9.0-12.0) Seconds INR (0.9-1.1) APTT (21.0-31.0) Seconds PTT Ratio Sodium (136-145) mmol/L Potassium (3.5-5.1) mmol/L Chloride (98-107) mmol/L Carbon Dioxide (21-32) mmol/L Anion Gap (3-11) BUN (7-18) mg/dl Creatinine (0.6-1.2) mg/dl Est Cr Clr Drug Dosing Est GFR ( Amer) Est GFR (Non-Af Amer) BUN/Creatinine Ratio (10-20) Glucose (70-99) mg/dl Lactate (0.4-2.0) mmol/L Calcium (8.5-10.1) mg/dl Magnesium (1.8-2.4) mg/dl Total Bilirubin (0.2-1) mg/dl AST (15-37) U/L ALT (12-78) U/L Alkaline Phosphatase (45-117) U/L Troponin I (0-0.045) ng/ml NT-Pro-B Natriuret Pep (0-900) pg/ml Total Protein (6.4-8.2) gm/dl Albumin (3.4-5.0) gm/dl Globulin (2.5-4.0) gm/dl Albumin/Globulin Ratio (0.9-2) Procalcitonin (0-0.5) ng/ml COVID-19 Eval Order CovFluRsv at [facility] SARS-CoV-2 (PCR) NEGATIVE (Negative) Influenza Type A (PCR) Negative (Neg) Influenza Type B (PCR) Negative (Neg) RSV (RT-PCR) Negative (Neg) 08/10/20 08/10/20 08/10/20 Range/Units 18:24 18:24 18:24 WBC (4.8-10.8) K/uL RBC (4.2-5.4) M/uL Hgb (12.0-16.0) g/dL Hct (37-47) % MCV (80-100) fL MCH (25-34) pg MCHC (32-36) g/dL RDW Std Deviation (36.4-46.3) fL RDW Coeff of Shyla (11.5-14.5) % Plt Count (130-400) K/uL MPV (7.4-10.4) fL Immature Gran % (Auto) % Neut % (Auto) % Lymph % (Auto) % Lipscomb % (Auto) % Eos % (Auto) % Baso % (Auto) % Neut # (Auto) (1.4-6.5) K/uL Lymph # (Auto) (1.2-3.4) K/uL Lipscomb # (Auto) (0.11-0.59) K/uL Eos # (Auto) (0-0.5) K/uL Baso # (Auto) (0-0.2) K/uL Immature Gran # (Auto) (0.00-0.02) K/uL PT 11.3 (9.0-12.0) Seconds INR 1.1 (0.9-1.1) APTT 26.8 (21.0-31.0) Seconds PTT Ratio 1.0 Sodium 137 (136-145) mmol/L Potassium 4.2 (3.5-5.1) mmol/L Chloride 104 (98-107) mmol/L Carbon Dioxide 27 (21-32) mmol/L Anion Gap 6.0 (3-11) BUN 31 H (7-18) mg/dl Creatinine 1.69 H (0.6-1.2) mg/dl Est Cr Clr Drug Dosing Not Reportable Est GFR ( Amer) 36.8 Est GFR (Non-Af Amer) 31.8 BUN/Creatinine Ratio 18.5 (10-20) Glucose 72 (70-99) mg/dl Lactate 1.5 (0.4-2.0) mmol/L Calcium 9.0 (8.5-10.1) mg/dl Magnesium 2.4 (1.8-2.4) mg/dl Total Bilirubin 0.2 (0.2-1) mg/dl AST 47 H (15-37) U/L ALT 54 (12-78) U/L Alkaline Phosphatase 133 H (45-117) U/L Troponin I < 0.015 (0-0.045) ng/ml NT-Pro-B Natriuret Pep 243 (0-900) pg/ml Total Protein 6.9 (6.4-8.2) gm/dl Albumin 2.8 L (3.4-5.0) gm/dl Globulin 4.1 H (2.5-4.0) gm/dl Albumin/Globulin Ratio 0.7 L (0.9-2) Procalcitonin (0-0.5) ng/ml COVID-19 Eval Order SARS-CoV-2 (PCR) (Negative) Influenza Type A (PCR) (Neg) Influenza Type B (PCR) (Neg) RSV (RT-PCR) (Neg) 08/10/20 Range/Units 18:24 WBC (4.8-10.8) K/uL RBC (4.2-5.4) M/uL Hgb (12.0-16.0) g/dL Hct (37-47) % MCV (80-100) fL MCH (25-34) pg MCHC (32-36) g/dL RDW Std Deviation (36.4-46.3) fL RDW Coeff of Shyla (11.5-14.5) % Plt Count (130-400) K/uL MPV (7.4-10.4) fL Immature Gran % (Auto) % Neut % (Auto) % Lymph % (Auto) % Lipscomb % (Auto) % Eos % (Auto) % Baso % (Auto) % Neut # (Auto) (1.4-6.5) K/uL Lymph # (Auto) (1.2-3.4) K/uL Lipscomb # (Auto) (0.11-0.59) K/uL Eos # (Auto) (0-0.5) K/uL Baso # (Auto) (0-0.2) K/uL Immature Gran # (Auto) (0.00-0.02) K/uL PT (9.0-12.0) Seconds INR (0.9-1.1) APTT (21.0-31.0) Seconds PTT Ratio Sodium (136-145) mmol/L Potassium (3.5-5.1) mmol/L Chloride (98-107) mmol/L Carbon Dioxide (21-32) mmol/L Anion Gap (3-11) BUN (7-18) mg/dl Creatinine (0.6-1.2) mg/dl Est Cr Clr Drug Dosing Est GFR ( Amer) Est GFR (Non-Af Amer) BUN/Creatinine Ratio (10-20) Glucose (70-99) mg/dl Lactate (0.4-2.0) mmol/L Calcium (8.5-10.1) mg/dl Magnesium (1.8-2.4) mg/dl Total Bilirubin (0.2-1) mg/dl AST (15-37) U/L ALT (12-78) U/L Alkaline Phosphatase (45-117) U/L Troponin I (0-0.045) ng/ml NT-Pro-B Natriuret Pep (0-900) pg/ml Total Protein (6.4-8.2) gm/dl Albumin (3.4-5.0) gm/dl Globulin (2.5-4.0) gm/dl Albumin/Globulin Ratio (0.9-2) Procalcitonin 0.23 (0-0.5) ng/ml COVID-19 Eval Order SARS-CoV-2 (PCR) (Negative) Influenza Type A (PCR) (Neg) Influenza Type B (PCR) (Neg) RSV (RT-PCR) (Neg) Administered Medications Discontinued Medications Piperacillin Sod/Tazobactam Sod (Zosyn) 4.5 gm in 120 mls @ 240 mls/hr IV NOW ONE Stop: 08/10/20 19:20 Last Infusion: 08/10/20 20:04 Dose: 0 mls/hr Documented by: [id number] Admin: 08/10/20 19:20 Dose: 240 mls/hr Documented by: [id number] Sodium Chloride (Nss 1000ml) 500 mls @ 999 mls/hr IV .Q31M ONE Stop: 08/10/20 20:08 Last Infusion: 08/10/20 20:40 Dose: 0 mls/hr Documented by: [id number] Admin: 08/10/20 20:04 Dose: 999 mls/hr Documented by: [id number] Imaging Data Radiologist's Impression: Patient: MAKAYLA SAUCEDO AAdmit Date: 08/10/20MR#: [id number]: 1954 OLD 89 RDAcct ID:[id number]: Date: 1955[facility] [id number]: 64Location: EDSex: FRoom/Bed:Att Phy:Diagnosis: congestion, asthma attack, coughPri Phy: Jenni Sandy, DOService Date: 08/10/20Fam Phy:Interpreting Phy: Isaac MccrayAdmit Phy: Ordering Phy: Anish Lombardi DO cc: ~ XR chest 1V portable HISTORY: 64 years-old Female SEPSIS acute sepsis COMPARISON: Chest radiograph 08/21/2017 TECHNIQUE: Portable AP view of the chest FINDINGS: Cardiac silhouette is enlarged. Right IJ hemodialysis catheter distal tip terminates expected location of the inferior SVC. Unchanged interstitial coarsening throughout the left lung. Moderate to large right pleural effusion with diffuse right lung opacities and right lung volume loss. Degenerative changes of the shoulders and spine. IMPRESSION: 1. Moderate to large right-sided pleural effusion with diffuse right lung airspace opacities and volume loss. 2. Cardiomegaly. ACT 112: Negative or not required by law. The above report was generated using voice recognition software. It may contain grammatical, syntax or spelling errors. Electronically signed by: Austyn Mccray M.D. 08/10/2020 7:04 PM Dictated: 08/10/201900Transcribed: 08/10/201900 Blood Pressure Blood Pressure Findings: Normal blood pressure Discharge Plan Visit Data Chief Complaint: Cough Stated Complaint: congestion, asthma attack, cough ED Provider: Anish Lombardi Discharge Problem: Pleural effusion, Shortness of breath, Hypoxia Patient Disposition: Being Evaluated by Hospitalist Condition: Good Discharge Instructions Interventions: ED Discharge Assessment Last Done: 08/10/20 20:45 Forms Stand Alone Forms: [facility] Prescriptions Prescriptions: No Action pilocarpine HCl 5 mg tablet 3 tab PO TID RF: 0 omega-3 fatty acids 1,000 mg capsule 1,000 mg PO DAILY RF: 0 tolterodine [Detrol LA] 4 mg capsule,extended release 24hr 4 mg PO QAM RF: 0 sertraline [Zoloft] 100 mg tablet 100 mg PO HS RF: 0 prochlorperazine maleate [Compazine] 10 mg tablet 10 mg PO Q8H PRN (Reason: Dizziness) RF: 0 aspirin [Adult Low Dose Aspirin] 81 mg tablet,delayed release (DR/EC) 81 mg PO DAILY RF: 0 promethazine 25 mg tablet 25 mg PO BID PRN (Reason: Nausea) RF: 0 gabapentin 300 mg capsule 600 mg PO BID RF: 0 fluticasone propionate [Flonase Allergy Relief] 50 mcg/actuation spray,suspension 2 sprays INTNAS DAILY RF: 0 rosuvastatin [Crestor] 20 mg tablet 20 mg PO QAM RF: 0 ascorbic acid (vitamin C) 500 mg capsule 500 mg PO DAILY RF: 0 cranberry 400 mg capsule 400 mg PO DAILY RF: 0 tramadol 50 mg tablet 50 mg PO Q6H PRN (Reason: Pain) RF: 0 Probiotic 3 billion cell Capsule 3,000 mmu cells PO BID RF: 0 magnesium 200 mg Tablet 200 mg PO DAILY RF: 0 Imodium Multi-Symptom Relief 2-125 mg Tablet 2 tab PO QAM RF: 0 buspirone 5 mg Tablet 5 mg PO BID RF: 0 primidone 50 mg Tablet 50 mg PO HS RF: 0 lisinopril 20 mg Tablet 20 mg PO QAM RF: 0 omeprazole 40 mg Capsule,Delayed Release(Dr/Ec) 40 mg PO BID RF: 0 hydroxychloroquine 200 mg Tablet 400 mg PO QAM RF: 0 colestipol 1 gram Tablet 1 g PO BID RF: 0 ferrous gluconate 324 mg (37.5 mg iron) Tablet 324 mg PO DAILY RF: 0 Combivent Respimat 20-100 mcg/actuation Mist 1 puff INHALATION QID RF: 0 baclofen 10 mg Tablet 20 mg PO BID RF: 0 armodafinil 250 mg tablet 250 mg PO DAILY RF: 0 levothyroxine [Synthroid] 175 mcg Tablet 175 mcg PO DAILY RF: 0 sucralfate 100 mg/mL Suspension 10 ml PO QID RF: 0 lorazepam 0.5 mg tablet 0.5 mg PO Q8H PRN (Reason: Anxiety) RF: 0 simethicone 80 mg Tablet 80 mg PO Q6H PRN (Reason: Gi Upset) RF: 0 insulin aspart U-100 [Novolog U-100 Insulin aspart] 100 unit/mL solution RF: 0 Referrals Referrals: Jenni Sandy DO [Primary Care Provider] -
[2020-08-10 18:32] LABS: Basophils # (auto) 0.02 K/uL (0-0.2); Basophils % (auto) 0.2 %; Eosinophils # (auto) 0.15 K/uL (0-0.5); Eosinophils % (auto) 1.8 %; Hematocrit (blood only) 40.9 % (37-47); Immature Granulocytes # (auto) 0.02 K/uL (0.00-0.02); Immature Granulocytes % (auto) 0.2 %; Lymphocytes % (auto) 12.3 %; Mean Corpuscular Hemoglobin 25.9 pg (25-34); Mean Corpuscular Hgb Conc 31.8 g/dL (32-36); Mean Corpuscular Volume 81.6 fL (80-100); Monocytes # (auto) 0.95 K/uL (0.11-0.59); Monocytes % (auto) 11.7 %; Neutrophils # (auto) 6.01 K/uL (1.4-6.5); Neutrophils % (auto) 73.8 %; Platelet Count 324 K/uL (130-400); RDW Standard Deviation 53.7 fL (36.4-46.3); Red Blood Count 5.01 M/uL (4.2-5.4); White Blood Count 8.15 K/uL (4.8-10.8)
[2020-08-10 18:37] LABS: Influenza A virus by PCR Negative (Neg); Influenza B virus by PCR Negative (Neg); RSV by PCR Negative (Neg); SARS CoV2 RNA(COVID-19) InHosp NEGATIVE (Negative)
[2020-08-10 18:43] LABS: INR 1.1 (0.9-1.1); Partial Thromboplastin Time 26.8 Seconds (21.0-31.0); Prothrombin Time 11.3 Seconds (9.0-12.0)
[2020-08-10 18:48] LABS: Aspartate Aminotransferase 47 U/L (15-37); BUN Creatinine Ratio 18.5 (10-20); Blood Urea Nitrogen 31 mg/dl (7-18); Carbon Dioxide 27 mmol/L (21-32); Chloride 104 mmol/L (98-107); Est GFR (African American) 36.8; Est GFR (Non-African American) 31.8; Glucose 72 mg/dl (70-99); Magnesium 2.4 mg/dl (1.8-2.4); Potassium 4.2 mmol/L (3.5-5.1); Sodium 137 mmol/L (136-145)
[2020-08-10 18:49] LABS: Alanine Aminotransferase 54 U/L (12-78); Albumin Level 2.8 gm/dl (3.4-5.0)
[2020-08-10] MEDS ORDERED: PIPERACILL/TAZOBAC CONSULT ACTIVE PRN (18:51)
[2020-08-10] MEDS ORDERED: PIPERACILLIN/TAZOBACTAM 4.5 GM/120 ML BAG IV ONE (18:51)
[2020-08-10 18:53] LABS: Albumin Globulin Ratio 0.7 (0.9-2); Alkaline Phosphatase 133 U/L (45-117); Bilirubin,Total 0.2 mg/dl (0.2-1); Globulin 4.1 gm/dl (2.5-4.0); Total Protein 6.9 gm/dl (6.4-8.2); Troponin I < 0.015 ng/ml (0-0.045)
--- NOTE | 2020-08-10 19:05 | XRay Report ---
XR chest 1V portable HISTORY: 64 years-old Female SEPSIS acute sepsis COMPARISON: Chest radiograph 08/21/2017 TECHNIQUE: Portable AP view of the chest FINDINGS: Cardiac silhouette is enlarged. Right IJ hemodialysis catheter distal tip terminates expected locatio n of the inferior SVC. Unchanged interstitial coarsening throughout the left lung. Moderate to large right pleural effusion with diffuse right lung opacities and right lung volume loss. Degenerative juan nges of the shoulders and spine. IMPRESSION: 1. Moderate to large right-sided pleural effusion with diffuse right lung airspace opacities and volu me loss. 2. Cardiomegaly. ACT 112: Negative or not required by law. The above report was generated using voice recognition software. It may contain grammatical, syntax o r spelling errors. Electronically signed by: Austyn Mccray M.D. 08/10/2020 7:04 PM
[2020-08-10] MEDS ORDERED: SODIUM CHLORIDE 0.9% 1000ML 500 ML IV ONE (19:38)
--- NOTE | 2020-08-10 19:41 | History & Physical Report ---
Date of Service August 10, 2020 Assessment & Plan (1) Pleural effusion: (2) SOB (shortness of breath): Pt is 64 y/o F with PMH iron deficiency anemia, Sjogrens syndrome, scleroderma requiring extracorporal photopheresis s/p endovascular AV fistula to RUE, depression, GERD, insulin dependent DM I, ROJELIO, hyperthyroidism, presented to ER with c/o progressive SOB x 1 week. + cough, no fever In ER pt afebrile, 86-90% O2 sat on RA, other vitals stable. No leukocytosis. Negative Covid 19, influenza, BNP: 243 CXR: Moderate to large right-sided pleural effusion with diffuse right lung airspace opacities and volume loss. Supplemental oxygen Duoneb echo Pulmonology consult SHONNA BUN: 31, Cr: 1.6. Baseline Cr: 0.8 Pt reports poor oral intake secondary to increased anxiety this week Gentle IVF Avoid nephrotoxic agents when possible DM I Insulin Pump Pt currently very anxious secondary to loss of recently and reports is upset and confused and doesn't know her pump settings. Insulin pump was removed in ER prior to hospitalist leatha. Unable to find pt's pump settings in outpatient records Novolog sliding scale for now Glycemic pharmacy consult Scleroderma Has photophoresis through RUE AV fistula; Follows with Dr Magdaleno Has not been going for photophoresis recently secondary to husbands illness/passing Consider rheumatology consult tomorrow Sjogren Continue home meds HTN hold lisinopril tonight Chronic Nausea. GERD continue home meds Hyperthyroidism Continue synthroid ROJELIO continue CPAP with O2 HS Anxiety/Depression Continue sertraline, lorazepam Pt with increased anxiety 2/2 this week. currently denies pysch consult DVT Prophylaxis -SCDs for now Full Code as per discussion with pt Follows with Dr Jenni Sandy for routine care Pt was seen and care coordinated with Dr Watson. See addendum History of Present Illness Chief Complaint: SOB Primary Care Provider: Jenni Sandy, DO Pt is 64 y/o F with PMH iron deficiency anemia, Sjogrens syndrome, scleroderma requiring extracorporal photopheresis s/p endovascular AV fistula to RUE, depression, GERD, insulin dependent DM I, ROJELIO, hyperthyroidism, presented to ER with c/o SOB x 1 week. Had some right sided CP and upper right abdominal pain after lifting up her . She thought she pulled something initially however SOB has worsened and CP has continued. CP worse with palpation and deep inspiration. C/O cough productive yellow phlegm in the mornings. Chronic loose stools in am and takes immodium, chronic nausea and has phenergan to use as needed. Denies fever/chills, ill contacts. Reports chronic BLE edema. Pt states has not been getting photopheresis done over past couple of weeks secondary to her being ill and unfortunately passing this week. Pt reports increased anxiety. Chronic intermittent dizziness, no worsening. Denies fever/chills, diaphoresis, ALBARRAN, syncope, vision changes, neck pain, palpitations, sore throat, choking, otalgia, rhinorrhea, new paresthesias, extremity weakness, rashes, urinary symptoms. Allergies Allergy/AdvReac Type Severity Reaction Status Date / Time albuterol Allergy Severe SHORTNESS Verified 05/16/20 13:12 OF BREATH niacinamide Allergy Severe Sweating, Verified 05/16/20 13:12 redness, hives, sob nortriptyline Allergy Severe STOPPED Verified 05/16/20 13:12 BREATHING pregabalin Allergy Intermediate ANKLE Verified 05/16/20 13:12 SWELLING ropinirole Allergy Intermediate ANKLE Verified 05/16/20 13:12 SWELLING venlafaxine Allergy Intermediate ANKLE Verified 05/16/20 13:12 SWELLING animal dander Allergy Mild CONGESTION Verified 05/16/20 13:12 birch Allergy Unknown SHOWED UP Verified 05/16/20 13:12 ON ALLERGY TESTING cephalexin Allergy Unknown CAN'T Verified 05/16/20 13:12 REMEMBER clarithromycin Allergy Unknown CAN'T Verified 05/16/20 13:12 REMEMBER clindamycin Allergy Unknown CAN'T Verified 05/16/20 13:12 REMEMBER erythromycin base Allergy Unknown CAN'T Verified 05/16/20 13:12 REMEMBER grass pollen-perennial rye, Allergy Unknown + WITH Verified 05/16/20 13:12 standar ALLERGY TESTING mold Allergy Unknown ALLERGY Verified 05/16/20 13:12 TESTED + sumatriptan AdvReac Severe "SEVERE Verified 05/16/20 13:12 JAW AND FACE LOCKING PAIN" aspirin AdvReac Intermediate "SEVERE Verified 05/16/20 13:12 STOMACH CRAMPS, PAIN, SWELLING, NAUSEA, BELCHING" celecoxib AdvReac Intermediate FELT Verified 05/16/20 13:12 "GOING INSANE" doxycycline AdvReac Intermediate EXTREME Verified 05/16/20 13:12 STOMACH PAIN, ANKLE & LEG SWELLING metoclopramide AdvReac Intermediate "EXTREME Verified 05/16/20 13:12 MUSCLE SPASMS IN LEGS, EARS, AND STOMACH" morphine AdvReac Intermediate "FELT Verified 05/16/20 13:12 DIZZY, NAUSEOUS, LOSS OF MYSELF" paroxetine AdvReac Intermediate "TOO Verified 05/16/20 13:12 STRONG OF MED" duloxetine AdvReac Mild SWEATING Verified 05/16/20 13:12 fluoxetine AdvReac Mild SWEATING Verified 05/16/20 13:12 oxycodone AdvReac Mild SPACED OUT Verified 05/16/20 13:12 propoxyphene AdvReac Mild SPACED OUT Verified 05/16/20 13:12 azelastine AdvReac Unknown NOSE BLEEDS Verified 05/16/20 13:12 [place] Allergy Unknown ALLERGY Uncoded 05/16/20 13:12 TESTING Dust Allergy Unknown ALLERGY Uncoded 05/16/20 13:12 TESTING [place] Allergy Unknown ALLERGY Uncoded 05/16/20 13:12 TESTING Home Medications Medication Instructions Recorded Confirmed Type ascorbic acid (vitamin C) 500 mg 500 mg PO DAILY cap 04/07/18 08/10/20 History capsule aspirin 81 mg tablet,delayed 81 mg PO DAILY 04/07/18 08/10/20 History release cranberry 400 mg capsule 400 mg PO DAILY 04/07/18 08/10/20 History fluticasone propionate 50 2 sprays INTNAS DAILY 04/07/18 08/10/20 History mcg/actuation nasal spray,suspension gabapentin 300 mg capsule 600 mg PO BID cap 04/07/18 08/10/20 History omega-3 fatty acids 1,000 mg 1,000 mg PO DAILY 04/07/18 08/10/20 History capsule pilocarpine HCl 5 mg tablet 3 tab PO TID tab 04/07/18 08/10/20 History prochlorperazine maleate 10 mg 10 mg PO Q8H PRN tab 04/07/18 08/10/20 History tablet promethazine 25 mg tablet 25 mg PO BID PRN tab 04/07/18 08/10/20 History rosuvastatin 20 mg tablet 20 mg PO QAM 04/07/18 08/10/20 History sertraline 100 mg tablet 100 mg PO HS tab 04/07/18 08/10/20 History tolterodine 4 mg capsule,extended 4 mg PO QAM 04/07/18 08/10/20 History release 24 hr Probiotic 3,000 mmu cells PO BID 10/04/18 08/10/20 History tramadol 50 mg tablet 50 mg PO Q6H PRN 07/27/19 08/10/20 History Combivent Respimat 1 puff INHALATION QID 12/15/19 08/10/20 History Imodium Multi-Symptom Relief 2 tab PO QAM 12/15/19 08/10/20 History buspirone 5 mg PO BID 12/15/19 08/10/20 History colestipol 1 g PO BID 12/15/19 08/10/20 History ferrous gluconate 324 mg PO DAILY 12/15/19 08/10/20 History hydroxychloroquine 400 mg PO QAM 12/15/19 08/10/20 History lisinopril 20 mg PO QAM 12/15/19 08/10/20 History magnesium 200 mg PO DAILY 12/15/19 08/10/20 History omeprazole 40 mg PO BID 12/15/19 08/10/20 History primidone 50 mg PO HS 12/15/19 08/10/20 History armodafinil 250 mg PO DAILY 08/10/20 08/10/20 History baclofen 20 mg PO BID 08/10/20 08/10/20 History insulin aspart U-100 [Novolog unit 08/10/20 History U-100 Insulin aspart] levothyroxine [Synthroid] 175 mcg PO DAILY 08/10/20 08/10/20 History lorazepam 0.5 mg PO Q8H PRN 08/10/20 08/10/20 History simethicone 80 mg PO Q6H PRN 08/10/20 08/10/20 History sucralfate 10 ml PO QID 08/10/20 08/10/20 History Past Med/Surg History Medical History (Updated 08/10/20 @ 20:54 by Anish Lombardi DO) Anxiety Asthma rarely uses PRN inh Degenerative disc disease Depression Diabetes mellitus Fibromyalgia Gastroparesis GERD (gastroesophageal reflux disease) Glaucoma High cholesterol History of IBS Hypothyroid Insulin pump in place Liver lesion Migraine Morbid obesity On home oxygen therapy 1 LPM qHS ROJELIO (obstructive sleep apnea) CPAP DEVICE Osteoarthritis Overactive bladder Scleredema Sjogren's disease Urinary leakage Surgical History Cataract RT/LEFT H/O brain surgery CHIARI MALFORMATION 2013 H/O breast biopsy H/O eye surgery LASER SURGERY FOR GLAUCOMA H/O: hysterectomy History of biopsy History of colonoscopy History of esophagogastroduodenoscopy (EGD) History of tooth extraction Hx of cholecystectomy Family History Daughter Family history of reaction to anesthesia PONV Social History Smoking Status: Never smoker Second Hand Exposure: No; Hx Alcohol Use: No Hx Substance Use: No Preferred Language: Mohawk Communication Ability: Effective Laundry Tub Maker Required: No Beliefs That Will Affect Care: None Current Living Situation: Spouse Feels Safe at Home: Yes Assistive Devices: Glasses Review of Systems Review of Systems: All systems reviewed & are unremarkable except as noted in HPI & below Physical Exam Physical Exam: Per Dr Watson Results & Data Results & Data ([facility]) Vital Signs (Past 12 Hours) Vital Signs Temp Pulse Resp BP Pulse Ox 08/10/20 18:42 89 20 148/69 H 94 08/10/20 18:30 86 24 86 L 08/10/20 18:00 19 90 08/10/20 17:30 19 90 08/10/20 17:00 19 90 08/10/20 16:47 89 20 94 08/10/20 16:37 37 C 94 H 19 147/77 H 90 Laboratory Results Short CBC 08/10/20 08/10/20 Range/Units 18:24 18:24 WBC 8.15 (4.8-10.8) K/uL Hgb 13.0 (12.0-16.0) g/dL Hct 40.9 (37-47) % Plt Count 324 (130-400) K/uL Creatinine 1.69 H (0.6-1.2) mg/dl BMP 08/10/20 18:24 Sodium 137 Potassium 4.2 Chloride 104 Carbon Dioxide 27 BUN 31 H Creatinine 1.69 H Glucose 72 Calcium 9.0 Cardiac Enzymes 08/10/20 Range/Units 18:24 Troponin I < 0.015 (0-0.045) ng/ml Liver Function 08/10/20 Range/Units 18:24 Total Bilirubin 0.2 (0.2-1) mg/dl AST 47 H (15-37) U/L ALT 54 (12-78) U/L Alkaline Phosphatase 133 H (45-117) U/L Albumin 2.8 L (3.4-5.0) gm/dl Diagnostic Findings CXR: IMPRESSION: 1. Moderate to large right-sided pleural effusion with diffuse right lung airspace opacities and volume loss. 2. Cardiomegaly. Supervising Physician Co-Signing Physician Notes 64year old woman with h/o scleredema, DM oninsulin, anxiety/depression, ROJELIO on CPAP, hypothyroidism, sjogren, ENZO with routine iv iron infusion who presents to ER complaining of increasing SOB over the past week and right lower chest pain. History as detailed above by Liz Ramos PA-C, notable for increasing SOB, DUTTON, productive cough and right sided lower chest pain. No fevers/chills/nausea Physical exam notable for crying, obesity, nasal oxygen 2l/min, absent breath sound right lung base posteriorly, scattered wheezing in left lungs, right anterior chest dialysis catheter (for routine apheresis) Labs notable for Cr of 1.69, negative COVID test CXR show moderate to large right pleural effusion -Acute hypoxic respiratory failure -Right pleural effusion -SHONNA -Grief Use CPAP tonight Based on history, no fevers/chills/leukocytosis, procalcitonin of 0.23, low suspicion for infection. Got antibiotics in ER. No antibiotics for now. Pulm consult for thoracentesis. Send fluid to lab for analysis. Get 2D Echo Continue oxygen supplementation. CPAP tonight. Provider tomorrow to discuss with patients drafter assistant regarding her usual apheresis. Last was last month. Has not been able to keep apt recently due to b ereavement ( recently and was just buried yesterday). I offered applications manager services and psychiatry consult to aid patient with her grieving but she declined for now and stated she will let us know when she wants it. Gentle IVF for now and monitor Cr. Hold Lisinopril for now and renally dose meds as needed. Will do amlodipine for BP control for now while lisinopril is on hold Pharm consult for glycemic management Continue home meds Other plans as above
[2020-08-10 20:05] LABS: NT Pro B Type Natriuretic Pept 243 pg/ml (0-900)
[2020-08-10] MEDS ORDERED: amLODIPine BESYLATE 5 MG TAB PO STA (21:04)
[2020-08-10] MEDS ORDERED: CARBOHYDRATES FOR HYPOGLYCEMIA PO PRN (21:18)
[2020-08-10] MEDS ORDERED: GLUCAGON FOR INJ 1 MG VIAL SQ PRN (21:18)
[2020-08-10] MEDS ORDERED: SODIUM CHLORIDE 0.9% 1000ML 1,000 ML IV SCH (21:18)
[2020-08-10] MEDS ORDERED: DEXTROSE 50% 50 ML SYRINGE IV PRN (21:18)
[2020-08-10] MEDS ORDERED: GLUCOSE 40% GEL 15 GM TUBE PO PRN (21:18)
[2020-08-10] MEDS ORDERED: PHARMACY GLYCEMIC MGMT CONSULT STA (21:18)
[2020-08-10] MEDS ORDERED: GLUCOSE 10 TABS/TUBE PO PRN (21:18)
[2020-08-10] MEDS ORDERED: PHARMACY GLYCEMIC MGMT CONSULT PRN (21:29)
[2020-08-10] MEDS ORDERED: SIMETHICONE 80 MG CHEW PO PRN (21:37)
[2020-08-10] MEDS: ALBUT/IPRATROP 3MG/0.5MG NEB 3 ML VIAL NEB SCH (21:42)
[2020-08-10] MEDS ORDERED: IPRATROPIUM BROMIDE HFA INHALER INH SCH (21:45)
[2020-08-10] MEDS ORDERED: ALBUTEROL HFA 8 GM INHALER INH SCH (21:45)
[2020-08-10] MEDS ORDERED: INSULIN GLARGINE SOLOSTAR 100 UNITS/ML 3 ML PEN SC ONE (22:00)
[2020-08-10] MEDS: PROMETHAZINE HCL 25 MG TAB PO PRN (22:16)
[2020-08-10] MEDS: SUCRALFATE 1 GM/10 ML UDC PO SCH (22:21)
[2020-08-10] MEDS: GABAPENTIN 300 MG CAP PO SCH (22:22)
[2020-08-10] MEDS: PRIMIDONE 50 MG TAB PO SCH (22:23)
[2020-08-10] MEDS: PILOCARPINE HCL 5 MG TABLET PO SCH (22:24)
[2020-08-10] MEDS: busPIRone 5 MG TAB PO SCH (22:25)
[2020-08-10] MEDS: BACLOFEN 20 MG TAB PO SCH (22:25)
[2020-08-10] MEDS: COLESTIPOL HCL 1 GM TAB PO SCH (22:25)
[2020-08-10] MEDS: ADVANCED PROBIOTIC 1250 MG CAPSULE PO SCH (22:28)
[2020-08-10] MEDS: PANTOprazole 40 MG TAB PO SCH (22:28)
[2020-08-10] MEDS: SERTRALINE HCL 100 MG TABLET PO SCH (22:29)
[2020-08-10] MEDS: INSULIN ASPART 100 UNITS/ML 3 ML PEN SC SCH (22:33)
[2020-08-11] MEDS ORDERED: IPRATROPIUM BROMIDE HFA INHALER INH PRN (00:07)
[2020-08-11] MEDS ORDERED: ALBUTEROL HFA 8 GM INHALER INH PRN (00:08)
[2020-08-11] MEDS ORDERED: INSULIN ASPART 100 UNITS/ML 3 ML PEN SC SCH (02:00)
[2020-08-11] MEDS ORDERED: INSULIN HUMAN REGULAR PER UNIT 7 UNITS in SYRINGE 6.93 ML IV ONE (02:15)
[2020-08-11 02:19] LABS: Appearance Urine Cloudy (Clear); Bacteria Urine Automated Negative (Negative); Bilirubin Urine Negative (Negative); Blood Urine Negative (Negative); Color Urine Dark Yellow; Epithelial Cell Urine Auto 20-30 /lpf (0-5); Glucose Urine UA 3+ (Negative); Ketones Urine Trace (Negative); Leukocyte Esterase Urine 1+ (Negative); Nitrite Urine Negative (Negative); Protein Urine Trace (Negative); Specific Gravity Urine 1.029 (1.000-1.030); Urobilinogen Urine Negative (Negative); WBC Urine Automated >30 /hpf (0-5)
[2020-08-11 02:49] LABS: RBC Urine Automated 0-4 /hpf (0-4)
[2020-08-11] MEDS: LEVOTHYROXINE SODIUM 175 MCG TABLET PO SCH (05:23)
[2020-08-11] MEDS: LOPERAMIDE HCL 2 MG CAP PO SCH (05:26)
--- NOTE | 2020-08-11 07:13 | Hospitalist Progress Note ---
Date of Service August 11, 2020 Assessment & Plan (1) Pleural effusion: (2) SOB (shortness of breath): CAP Pneumonia in immunocompromised pt Pt is 64 y/o F with PMH iron deficiency anemia, Sjogrens syndrome, scleroderma requiring extracorporal photopheresis s/p endovascular AV fistula to RUE, depression, GERD, insulin dependent DM I, ROJELIO, hyperthyroidism, presented to ER with c/o progressive SOB x 1 week. + cough, no fever In ER pt afebrile, 86-90% O2 sat on RA, other vitals stable. No leukocytosis. Negative Covid 19, influenza, BNP: 243 CXR: Moderate to large right-sided pleural effusion with diffuse right lung airspace opacities and volume loss. Supplemental oxygen Duoneb echo Pulmonology consult - plan for thoracentesis/ poss. chest tube Update: s/p 2L of pl. fluid removed - exudative Started on meropenem Bacteremia 1 blood cultx - positive for Gram + positive cocci received zosyn in ED now on meropenem per pulm. adding vancomycin for now SHONNA BUN: 31, Cr: 1.6. Baseline Cr: 0.8 Pt reports poor oral intake secondary to increased anxiety this week Gentle IVF Avoid nephrotoxic agents when possible Cr improved DM I Insulin Pump Pt currently very anxious secondary to loss of recently and reports is upset and confused and doesn't know her pump settings. Insulin pump was removed in ER prior to hospitalist leatha. Unable to find pt's pump settings in outpatient records Novolog sliding scale for now Glycemic pharmacy consult Scleroderma Has photophoresis through RUE AV fistula; Follows with Dr Magdaleno Has not been going for photophoresis (for past 1.5 months, usually goes [id number] ) recently secondary to husbands illness/passing may consider rheumatology consult Sjogren- Continue home meds HTN- hold lisinopril tonight Chronic Nausea. GERD- continue home meds Hyperthyroidism- Continue synthroid ROJELIO - continue CPAP with O2 HS Anxiety/Depression Continue sertraline, lorazepam Pt with increased anxiety/depression 2/2 this week. Reports she talked to her casino banker this AM and declines pysch consult However she continues to be tearful and family requests psych consult DVT Prophylaxis -SCDs for now Full Code as per discussion with pt Follows with Dr Jenni Sandy for routine care Admission and Anticipated Discharge Date Admission Date: August 10, 2020 Subjective Pt seen in follow up of R pl. effusion, hypoxia. Pt laying in bed, tearful about loss of her . She is on 6L of suppl. O2 but denies significant shortness of breath. Reports RUQ/ R lower chest pain w/ movement. No n/v. No fever, chills. Discussed w/ pulmonary - plan for likely thoracentesis. Review of Systems Review of Systems: All systems reviewed & are unremarkable except as noted in HPI & below Constitutional: + fatigue; no fever and no chills Respiratory: + cough (mild) and + dyspnea (mild, but using 6L of suppl. o2) Cardiovascular: + chest pain (R lower chest); no palpitations Gastrointestinal: + abdominal pain (RUQ); no nausea and no vomiting Genitourinary: no dysuria Physical Exam Constitutional: WD/WN, vitals as above Eyes: PERRL, conjunctivae normal, anicteric sclerae ENMT: external ear and nose normal, oropharynx normal Neck: trachea midline, no thyromegaly Respiratory: no labored breathing and does not use accessory muscles decreased breath sounds on the right, + crackles, no wheezing Cardiovascular: RRR, no murmur, no edema Chest (Breasts): Additional Comments: R sided permacath, lower R chest tenderness to palp. movement Gastrointestinal (Abdomen): Inspection/Auscultation: abdomen normal to inspection and normal bowel sounds; abdomen not distended and no abdominal edema Percussion/Palpation: + abdomen tender (RUQ); no guarding and abdomen not rigid Musculoskeletal: no cyanosis or clubbing, extremities motor strength 5/5 Skin: no rashes, warm and dry Neurologic: PERRL, EOMI, accommodation nl, no face palsy, no dysarthria Psychiatric: Orientation: alert and oriented x 3 tearful/ depressed Genitourinary: no CVA tenderness Lymphatic: no lymphedema Results & Data Results & Data ([facility]) Vital Signs (Past 12 Hours) Vital Signs Temp Pulse Pulse Resp BP BP Pulse Ox 08/11/20 05:37 84 24 93 08/11/20 04:02 37.2 C 85 18 149/65 H 92 08/11/20 03:24 85 19 92 08/11/20 00:37 37.2 C 94 H 18 151/63 H 92 08/10/20 23:10 89 21 92 08/10/20 21:45 91 H 18 98 08/10/20 21:15 37.2 C 98 H 20 154/78 H 91 08/10/20 20:45 101 H 24 188/106 H 92 08/10/20 20:35 101 H 24 188/106 H 92 08/10/20 20:00 93 H 25 H 195/99 H 92 08/10/20 19:30 92 H 18 167/78 H 93 Medications Administered Current Inpatient Medications Acetaminophen (Acetaminophen 325 Mg Tab) 650 mg PO Q4H PRN PRN Reason: Pain or Fever Stop: 09/09/20 21:17 Albuterol (Albut/Ipratrop 3mg/0.5mg Neb 3 Ml Vial) 3 ml NEB QIDR ALIZE Stop: 09/09/20 21:17 Last Admin: 08/10/20 21:42 Dose: 3 ml Documented by: Albuterol (Albuterol Hfa 8 Gm Inhaler) 1 puffs INH QIDR PRN PRN Reason: Shortness Of Breath Or Wheezing Stop: 09/10/20 00:07 Last Admin: 08/11/20 05:36 Dose: 1 puffs Documented by: Amlodipine Besylate (Amlodipine Besylate 5 Mg Tab) 5 mg PO QAM COUNTS INCLUDE 234 BEDS AT THE [facility] Stop: 09/10/20 08:59 Ascorbic Acid (Ascorbic Acid 500 Mg Tab) 500 mg PO DAILY COUNTS INCLUDE 234 BEDS AT THE [facility] Stop: 09/10/20 08:59 Aspirin (Aspirin 81 Mg Ectab) 81 mg PO DAILY COUNTS INCLUDE 234 BEDS AT THE [facility] Stop: 09/10/20 08:59 Baclofen (Baclofen 20 Mg Tab) 20 mg PO BID COUNTS INCLUDE 234 BEDS AT [facility] Stop: 09/09/20 21:17 Last Admin: 08/10/20 22:25 Dose: 20 mg Documented by: Buspirone HCl (Buspirone 5 Mg Tab) 5 mg PO BID COUNTS INCLUDE 234 BEDS AT [facility] Stop: 09/09/20 21:17 Last Admin: 08/10/20 22:25 Dose: 5 mg Documented by: Colestipol HCl (Colestipol Hcl 1 Gm Tab) 1 gm PO BID@1000,2200 COUNTS INCLUDE 234 BEDS AT THE [facility] Stop: 09/09/20 21:59 Last Admin: 08/10/20 22:25 Dose: 1 gm Documented by: Dextrose (Dextrose 50% 50 Ml Syringe) 25 - 50 ml IV UD PRN; Protocol PRN Reason: Hypoglycemia Protocol Stop: 09/09/20 21:17 Ferrous Gluconate (Ferrous Gluconate 324 Mg Tab) 324 mg PO DAILY ALIZE Stop: 09/10/20 08:59 Fish Oil ([place]-3 (Purified Fish Oil) 1 Gm Cap) 1 gm PO DAILY ALIZE Stop: 09/10/20 08:59 Fluticasone Propionate (Fluticasone Propionate Na Spr 16 Gm Btl) 2 sprays MIRNA DAILY ALIZE Stop: 09/10/20 08:59 Gabapentin (Gabapentin 300 Mg Cap) 600 mg PO BID ALIZE Stop: 09/09/20 21:17 Last Admin: 08/10/20 22:22 Dose: 600 mg Documented by: Glucagon (Glucagon For Inj 1 Mg Vial) 1 mg SQ UD PRN; Protocol PRN Reason: Hypoglycemia Protocol Stop: 09/09/20 21:17 Glucose (Glucose 10 Tabs/Tube) 4 - 8 tabs PO UD PRN; Protocol PRN Reason: Hypoglycemia Protocol Stop: 09/09/20 21:17 Glucose (Glucose 40% Gel 15 Gm Tube) 15 - 30 gm PO UD PRN; Protocol PRN Reason: Hypoglycemia Protocol Stop: 09/09/20 21:17 Hydroxychloroquine Sulfate (Hydroxychloroquine Sulfate 200 Mg Tab) 400 mg PO QAM COUNTS INCLUDE 234 BEDS AT THE [facility] Stop: 09/10/20 08:59 Sodium Chloride (Nss 1000ml) 1,000 mls @ 80 mls/hr IV .[id number] COUNTS INCLUDE 234 BEDS AT THE [facility] Stop: 08/11/20 09:47 Last Admin: 08/10/20 22:20 Dose: 80 mls/hr Documented by: Insulin Aspart (Insulin Aspart 100 Units/Ml 3 Ml Pen) 0 units SC ACHS ALIZE Stop: 09/09/20 21:17 Last Admin: 08/10/20 22:33 Dose: 15 units Documented by: Ipratropium Jewell (Ipratropium Jewell Hfa Inhaler) 1 puffs INH QIDR PRN PRN Reason: Shortness Of Breath Or Wheezing Stop: 09/10/20 00:06 Last Admin: 08/11/20 05:36 Dose: 1 puffs Documented by: Lactobacillus Acidoph/Casei/Rhamnos (Advanced Probiotic 1250 Mg Capsule) 2 cap PO BID ALIZE Stop: 09/09/20 21:44 Last Admin: 08/10/20 22:28 Dose: 2 cap Documented by: Levothyroxine Sodium (Levothyroxine Sodium 175 Mcg Tablet) 175 mcg PO DAILYBB COUNTS INCLUDE 234 BEDS AT THE [facility] Stop: 09/10/20 06:29 Last Admin: 08/11/20 05:23 Dose: 175 mcg Documented by: Lisinopril (Lisinopril 20 Mg Tab) 20 mg PO QAM COUNTS INCLUDE 234 BEDS AT [facility] Stop: 09/10/20 08:59 Loperamide HCl (Loperamide Hcl 2 Mg Cap) 2 mg PO QAM COUNTS INCLUDE 234 BEDS AT [facility] Stop: 09/10/20 08:59 Last Admin: 08/11/20 05:26 Dose: 2 mg Documented by: Lorazepam (Lorazepam 0.5 Mg Tab) 0.5 mg PO Q8H PRN PRN Reason: Anxiety Stop: 09/09/20 21:17 Magnesium Oxide (Magnesium Oxide 400 Mg Tab) 400 mg PO DAILY COUNTS INCLUDE 234 BEDS AT [facility] Stop: 09/10/20 08:59 Miscellaneous (Armodafinil!Order Awaiting Action) 1 ea N/A QS COUNTS INCLUDE 234 BEDS AT THE [facility] Stop: 09/10/20 00:00 Last Admin: 08/11/20 00:54 Dose: Not Given Documented by: Miscellaneous (Carbohydrates For Hypoglycemia ) 15 - 30 gm PO UD PRN PRN Reason: Hypoglycemia Protocol Stop: 09/09/20 21:17 Miscellaneous Information (Pharmacy Glycemic Mgmt Consult) 1 ea N/A UD PRN PRN Reason: Consult Stop: 09/09/20 21:28 Pantoprazole Sodium (Pantoprazole 40 Mg Tab) 40 mg PO BID COUNTS INCLUDE 234 BEDS AT [facility] Stop: 09/09/20 21:44 Last Admin: 08/10/20 22:28 Dose: 40 mg Documented by: Pilocarpine HCl (Pilocarpine Hcl 5 Mg Tablet) 15 mg PO TID ALIZE Stop: 09/09/20 21:17 Last Admin: 08/10/20 22:24 Dose: 15 mg Documented by: Primidone (Primidone 50 Mg Tab) 50 mg PO HS COUNTS INCLUDE 234 BEDS AT [facility] Stop: 09/09/20 21:17 Last Admin: 08/10/20 22:23 Dose: 50 mg Documented by: Prochlorperazine (Prochlorperazine Maleate 10 Mg Tab) 10 mg PO Q8H PRN PRN Reason: Dizziness Stop: 09/09/20 21:17 Promethazine HCl (Promethazine Hcl 25 Mg Tab) 25 mg PO BID PRN PRN Reason: Nausea Stop: 09/09/20 21:17 Last Admin: 08/10/20 22:16 Dose: 25 mg Documented by: Rosuvastatin Calcium (Rosuvastatin Calcium 20 Mg Tab) 20 mg PO QAM COUNTS INCLUDE 234 BEDS AT [facility] Stop: 09/10/20 08:59 Sertraline HCl (Sertraline Hcl 100 Mg Tablet) 100 mg PO HS COUNTS INCLUDE 234 BEDS AT [facility] Stop: 09/09/20 21:17 Last Admin: 08/10/20 22:29 Dose: 100 mg Documented by: Simethicone (Simethicone 80 Mg Chew) 80 mg PO Q6H PRN PRN Reason: Gi Upset Stop: 09/09/20 21:36 Simethicone (Simethicone 80 Mg Chew) 120 mg PO QAM COUNTS INCLUDE 234 BEDS AT [facility] Stop: 09/10/20 08:59 Sucralfate (Sucralfate 1 Gm/10 Ml Udc) 1 gm PO QID COUNTS INCLUDE 234 BEDS AT [facility] Stop: 09/09/20 21:17 Last Admin: 08/10/20 22:21 Dose: 1 gm Documented by: Tramadol HCl (Tramadol Hcl 50 Mg Tablet) 50 mg PO Q6H PRN PRN Reason: Pain Stop: 09/09/20 21:17
[2020-08-11] MEDS ORDERED: PERFLUTREN LIPID MICROSPHERE (DEFINITY) IV ONE (07:25)
[2020-08-11] MEDS: ALBUT/IPRATROP 3MG/0.5MG NEB 3 ML VIAL NEB SCH ×4 (07:52→19:22)
[2020-08-11] MEDS ORDERED: INSULIN GLARGINE SOLOSTAR 100 UNITS/ML 3 ML PEN SC ONE (08:00)
[2020-08-11 08:05] LABS: Hematocrit (blood only) 37.5 % (37-47); Hemoglobin 11.8 g/dL (12.0-16.0); Mean Corpuscular Hemoglobin 25.6 pg (25-34); Mean Corpuscular Hgb Conc 31.5 g/dL (32-36); Mean Corpuscular Volume 81.3 fL (80-100); Mean Platelet Volume 10.4 fL (7.4-10.4); Platelet Count 312 K/uL (130-400); RDW Coefficient of Variation 17.9 % (11.5-14.5); RDW Standard Deviation 53.9 fL (36.4-46.3); Red Blood Count 4.61 M/uL (4.2-5.4); White Blood Count 8.11 K/uL (4.8-10.8)
[2020-08-11 08:22] LABS: BUN Creatinine Ratio 30.2 (10-20); Calcium 8.8 mg/dl (8.5-10.1); Creatinine Clr Calc Pharmacy 61.5 ml/min; Est GFR (African American) 55.7; Est GFR (Non-African American) 48.1; Potassium 4.6 mmol/L (3.5-5.1)
[2020-08-11] MEDS: lisinopril 20 MG TAB PO SCH (08:32)
[2020-08-11] MEDS: ROSUVASTATIN CALCIUM 20 MG TAB PO SCH (08:32)
[2020-08-11] MEDS: ASCORBIC ACID 500 MG TAB PO SCH (08:32)
[2020-08-11] MEDS: LORazepam 0.5 MG TAB PO PRN (08:32)
[2020-08-11] MEDS: MAGNESIUM OXIDE 400 MG TAB PO SCH (08:32)
[2020-08-11] MEDS: FERROUS GLUCONATE 324 MG TAB PO SCH (08:33)
[2020-08-11] MEDS: HYDROXYCHLOROQUINE SULFATE 200 MG TAB PO SCH (08:33)
[2020-08-11] MEDS: OMEGA-3 (PURIFIED FISH OIL) 1 GM CAP PO SCH (08:33)
[2020-08-11] MEDS: ADVANCED PROBIOTIC 1250 MG CAPSULE PO SCH ×2 (08:34→20:14)
[2020-08-11] MEDS: PANTOprazole 40 MG TAB PO SCH ×2 (08:34→20:13)
[2020-08-11] MEDS: amLODIPine BESYLATE 5 MG TAB PO SCH (08:34)
[2020-08-11] MEDS: ASPIRIN 81 MG ECTAB PO SCH (08:35)
[2020-08-11] MEDS: busPIRone 5 MG TAB PO SCH ×2 (08:35→20:15)
[2020-08-11] MEDS: BACLOFEN 20 MG TAB PO SCH ×2 (08:35→20:15)
[2020-08-11] MEDS: SIMETHICONE 80 MG CHEW PO SCH (08:35)
[2020-08-11] MEDS: PILOCARPINE HCL 5 MG TABLET PO SCH ×3 (08:35→20:13)
[2020-08-11] MEDS: GABAPENTIN 300 MG CAP PO SCH ×2 (08:36→20:14)
[2020-08-11] MEDS: SUCRALFATE 1 GM/10 ML UDC PO SCH ×4 (08:36→20:15)
[2020-08-11] MEDS: FLUTICASONE PROPIONATE NA SPR 16 GM BTL NAE SCH (08:37)
[2020-08-11] MEDS: INSULIN ASPART 100 UNITS/ML 3 ML PEN SC SCH ×4 (08:49→20:28)
--- NOTE | 2020-08-11 08:58 | Pulmonary Consultation ---
Date of Consultation August 11, 2020 Assessment & Plan (1) Pleural effusion on right: Chest x-ray 08/10/2020 personally reviewed: Portable film, blunting of the right costophrenic angle, moderate right-sided pleural effusion, left costophrenic angle pain, increased cardiac silhouette, right-sided permacath in place. --Acute hypoxic respiratory failure With moderate to large right-sided pleural effusion, parapneumonic effusion is a possibility Patient never had any pleural effusions in the past. Continue with O2 supplementation to keep oxygen saturation greater than 90% We will perform thoracentesis today to make sure this is not infectious. Influenza A/B negative, COVID-19 negative Procalcitonin 0.23 --ROJELIO CPAP nightly and as needed shortness of breath On armodafinil at home --History of scleroderma and Sjogrens Getting plasmapheresis Last plasmapheresis was 1 and half months ago. On hydroxychloroquine and pilocarpine Plan: We will try to thoracentesis today. Risk and benefit of the procedure explained to the patient in depth. Consent signed, witnessed and put in the chart Given right upper quadrant pain and Tsang sign positive. I would recommend rig ht upper quadrant ultrasound. Patient did say that she had cholecystectomy done in the past. If CT abdomen pelvis is being thought to be done then I would recommend CT chest to be added as well. Patient has multiple allergies to almost everything but she cannot remember what other allergies for. I would give her meropenem for possible pneumonia at least for 48 hours. Procalcitonin is -0.23 but patient is immunosuppressed. Incentive spirometry Patient's daughter was updated regarding the procedure and the plan as per patient's request. Please note the above document was generated using voice recognition software. It may contain grammatical, syntax or spelling errors.Any formal questions or concerns about the content, text or information contained within the body of this dictation should be directly addressed to the provider for clarification. Please note the above document was generated using voice recognition software. It may contain grammatical, syntax or spelling errors.Any formal questions or concerns about the content, text or information contained within the body of this dictation should be directly addressed to the provider for clarification. (2) Acute respiratory failure with hypoxia: (3) ROJELIO (obstructive sleep apnea): (4) Scleroderma: History of Present Illness Attending Physician: Brendon Almonte MD History of Present Illness 64-year-old female past medical history of Sjogren's, scleroderma getting plasmapheresis, last plasmapheresis was 1 and half month ago, depression, type 1 diabetes was admitted to the hospital with complaints of right upper quadrant pain and shortness of breath. Patient does have history of asthma Pulmonary were consulted because of the chest x-ray finding. At the time of examination patient stated that she has been having right upper quadrant pain and shortness of breath since last 2 weeks progressively getting worse. She has been coughing a lot as well. Phlegm is clear. No hemoptysis. Denies any fever or chills. She is making good amount of urine. No dysuria, no diarrhea. Please note patient is very emotional. She was crying multiple times during interrogation. She recently lost her . Conservation and emotional support was given to the patient all throughout. Social history: Non-smoker Allergies Allergy/AdvReac Type Severity Reaction Status Date / Time albuterol Allergy Severe SHORTNESS Verified 05/16/20 13:12 OF BREATH niacinamide Allergy Severe Sweating, Verified 05/16/20 13:12 redness, hives, sob nortriptyline Allergy Severe STOPPED Verified 05/16/20 13:12 BREATHING pregabalin Allergy Intermediate ANKLE Verified 05/16/20 13:12 SWELLING ropinirole Allergy Intermediate ANKLE Verified 05/16/20 13:12 SWELLING venlafaxine Allergy Intermediate ANKLE Verified 05/16/20 13:12 SWELLING animal dander Allergy Mild CONGESTION Verified 05/16/20 13:12 birch Allergy Unknown SHOWED UP Verified 05/16/20 13:12 ON ALLERGY TESTING cephalexin Allergy Unknown CAN'T Verified 05/16/20 13:12 REMEMBER clarithromycin Allergy Unknown CAN'T Verified 05/16/20 13:12 REMEMBER clindamycin Allergy Unknown CAN'T Verified 05/16/20 13:12 REMEMBER erythromycin base Allergy Unknown CAN'T Verified 05/16/20 13:12 REMEMBER grass pollen-perennial rye, Allergy Unknown + WITH Verified 05/16/20 13:12 standar ALLERGY TESTING house dust Allergy Unknown ALLERGY Verified 08/11/20 07:36 TESTING mold Allergy Unknown ALLERGY Verified 05/16/20 13:12 TESTED + sumatriptan AdvReac Severe "SEVERE Verified 05/16/20 13:12 JAW AND FACE LOCKING PAIN" aspirin AdvReac Intermediate "SEVERE Verified 05/16/20 13:12 STOMACH CRAMPS, PAIN, SWELLING, NAUSEA, BELCHING" celecoxib AdvReac Intermediate FELT Verified 05/16/20 13:12 "GOING INSANE" doxycycline AdvReac Intermediate EXTREME Verified 05/16/20 13:12 STOMACH PAIN, ANKLE & LEG SWELLING metoclopramide AdvReac Intermediate "EXTREME Verified 05/16/20 13:12 MUSCLE SPASMS IN LEGS, EARS, AND STOMACH" morphine AdvReac Intermediate "FELT Verified 05/16/20 13:12 DIZZY, NAUSEOUS, LOSS OF MYSELF" paroxetine AdvReac Intermediate "TOO Verified 05/16/20 13:12 STRONG OF MED" duloxetine AdvReac Mild SWEATING Verified 05/16/20 13:12 fluoxetine AdvReac Mild SWEATING Verified 05/16/20 13:12 oxycodone AdvReac Mild SPACED OUT Verified 05/16/20 13:12 propoxyphene AdvReac Mild SPACED OUT Verified 05/16/20 13:12 azelastine AdvReac Unknown NOSE BLEEDS Verified 05/16/20 13:12 Home Medications Medication Instructions Recorded Confirmed Type ascorbic acid (vitamin C) 500 mg 500 mg PO DAILY cap 04/07/18 08/10/20 History capsule aspirin 81 mg tablet,delayed 81 mg PO DAILY 04/07/18 08/10/20 History release cranberry 400 mg capsule 400 mg PO DAILY 04/07/18 08/10/20 History fluticasone propionate 50 2 sprays INTNAS DAILY 04/07/18 08/10/20 History mcg/actuation nasal spray,suspension gabapentin 300 mg capsule 600 mg PO BID cap 04/07/18 08/10/20 History omega-3 fatty acids 1,000 mg 1,000 mg PO DAILY 04/07/18 08/10/20 History capsule pilocarpine HCl 5 mg tablet 3 tab PO TID tab 04/07/18 08/10/20 History prochlorperazine maleate 10 mg 10 mg PO Q8H PRN tab 04/07/18 08/10/20 History tablet promethazine 25 mg tablet 25 mg PO BID PRN tab 04/07/18 08/10/20 History rosuvastatin 20 mg tablet 20 mg PO QAM 04/07/18 08/10/20 History sertraline 100 mg tablet 100 mg PO HS tab 04/07/18 08/10/20 History tolterodine 4 mg capsule,extended 4 mg PO QAM 04/07/18 08/10/20 History release 24 hr Probiotic 3,000 mmu cells PO BID 10/04/18 08/10/20 History tramadol 50 mg tablet 50 mg PO Q6H PRN 07/27/19 08/10/20 History Combivent Respimat 1 puff INHALATION QID 12/15/19 08/10/20 History Imodium Multi-Symptom Relief 2 tab PO QAM 12/15/19 08/10/20 History buspirone 5 mg PO BID 12/15/19 08/10/20 History colestipol 1 g PO BID 12/15/19 08/10/20 History ferrous gluconate 324 mg PO DAILY 12/15/19 08/10/20 History hydroxychloroquine 400 mg PO QAM 12/15/19 08/10/20 History lisinopril 20 mg PO QAM 12/15/19 08/10/20 History magnesium 200 mg PO DAILY 12/15/19 08/10/20 History omeprazole 40 mg PO BID 12/15/19 08/10/20 History primidone 50 mg PO HS 12/15/19 08/10/20 History armodafinil 250 mg PO DAILY 08/10/20 08/10/20 History baclofen 20 mg PO BID 08/10/20 08/10/20 History insulin aspart U-100 [Novolog unit 08/10/20 History U-100 Insulin aspart] levothyroxine [Synthroid] 175 mcg PO DAILY 08/10/20 08/10/20 History lorazepam 0.5 mg PO Q8H PRN 08/10/20 08/10/20 History simethicone 80 mg PO Q6H PRN 08/10/20 08/10/20 History sucralfate 10 ml PO QID 08/10/20 08/10/20 History Patient History Medical History (Updated 08/11/20 @ 08:54 by Indira Kincaid MD) Anxiety Asthma rarely uses PRN inh Degenerative disc disease Depression Diabetes mellitus Fibromyalgia Gastroparesis GERD (gastroesophageal reflux disease) Glaucoma High cholesterol History of IBS Hypothyroid Insulin pump in place Liver lesion Migraine Morbid obesity On home oxygen therapy 1 LPM qHS ROJELIO (obstructive sleep apnea) CPAP DEVICE Osteoarthritis Overactive bladder Scleredema Sjogren's disease Urinary leakage Surgical History Cataract RT/LEFT H/O brain surgery CHIARI MALFORMATION 2013 H/O breast biopsy H/O eye surgery LASER SURGERY FOR GLAUCOMA H/O: hysterectomy History of biopsy History of colonoscopy History of esophagogastroduodenoscopy (EGD) History of tooth extraction Hx of cholecystectomy Family History Daughter Family history of reaction to anesthesia PONV Social History Smoking Status: Never smoker Second Hand Exposure: No; Hx Alcohol Use: No Hx Substance Use: No Preferred Language: Khmer Communication Ability: Effective Medical Collections Required: No Beliefs That Will Affect Care: None Current Living Situation: Alone Other Information That Helps Us Care for You: No Feels Safe at Home: Yes Safety Concerns: Feels Safe At This Time Assistive Devices: Oxygen - Continuous Assistive Devices Comment: Partials and diabetic insulin pump Review of Systems Review of Systems: All systems reviewed & are unremarkable except as noted in HPI & below Physical Exam Physical Exam: Constitutional: No acute distress HEENT: EOMI, PERRLA Respiratory system: Decreased air entry on the right side, positive crackles bilateral lower lobes, no wheeze, no rhonchi CVS: S1-S2 positive, no murmurs or gallops, accentuated P2, right-sided permacath Abdomen: Soft, nondistended, positive bowel sounds x4, obese, right upper quadrant tenderness with positive Tsang sign Extremities: +2 pulses bilaterally radialis/ dorsalis pedis, no cyanosis, no edema Neuro: Awake alert oriented x3 Psych: Emotional and depressed G/U: No Coe Skin: no rashes, warm and dry Lymphatic: no cervical or axillary lymphadenopathy Results & Data Results & Data ([facility]) Vital Signs (Past 12 Hours) Vital Signs Temp Pulse Pulse Resp BP Pulse Ox 08/11/20 07:52 89 28 H 91 08/11/20 07:41 36.7 C 89 22 158/70 H 91 08/11/20 05:37 84 24 93 08/11/20 04:02 37.2 C 85 18 149/65 H 92 08/11/20 03:24 85 19 92 08/11/20 00:37 37.2 C 94 H 18 151/63 H 92 08/10/20 23:10 89 21 92 08/10/20 21:45 91 H 18 98 08/10/20 21:15 37.2 C 98 H 20 154/78 H 91 08/11/20 07:31 08/11/20 07:31 PG Care Time/CCT Total # of Minutes Spent Total Time Spent with Patient: Total time spent is greater than 50% in coordination of care (as documented) at patient's floor/unit and/or counseling patient: Coding Level of Care Code 14747 Inpt Consult Level 4 Diagnoses Pleural effusion on right J90 Acute respiratory failure with hypoxia J96.01 ROJELIO (obstructive sleep apnea) G47.33 Scleroderma M34.9
[2020-08-11] MEDS ORDERED: lisinopril 20 MG TAB PO SCH (09:00)
--- NOTE | 2020-08-11 09:53 | Pharmacy Report ---
Pharmacy Glycemic Short Note 2 - Date of Service August 11, 2020 - Glycemic Short BSG Results (Last 24 hours): 08/10/20 08/10/20 08/10/20 18:24 21:43 21:45 Glucose 72 POC Glucose 367 H* 407 H* 08/11/20 08/11/20 08/11/20 01:51 07:31 07:38 Glucose 288 H POC Glucose 315 H* 330 H* OUTPATIENT ANTIDIABETIC REGIMEN: * Insulin pump with NovoLog insulin - up to 110 units/day * A1c = pending for 08/11/20 ASSESSMENT: * 64yo diabetic female with unknown degree of outpatient control. A1c pending for today * SEVERE hyperglycemia on admission- patient took pump off * Transitioned to SQ basal bolus insulin with Lantus + NovoLog. * Based on TDD of 110 units/day (outpatient dosing) will start Lantus 25 units SQ BID + NovoLog 15/5 (CF/CR) * 20 units of Lantus given last evening therefore will make up 1/2 of missed dose (typically we start with the FULL 24 hr dose and then split BID) this morning and then start 25 BID this evening. * Will continue with Q4hrs BSG checks and coverage for severe sustained hyperglycemia PLAN FOR INPATIENT GLYCEMIC CONTROL: * Hold outpatient insulin pump * Basal insulin * Lantus 40units SQ x 1 dose this AM then 25 units SQ BID * Bolus insulin * NovoLog per scale ACHS or Q6hrs while NPO * Goal Range: Low 110 mg/dL - High 140 mg/dL * Correction Factor: 15 mg/dL/unit * Nutritional / Prandial insulin per carb ratio of 1 unit per 5 grams CHO consumed PLAN FOR DISCHARGE: * A1c pending. TBD
[2020-08-11] MEDS: COLESTIPOL HCL 1 GM TAB PO SCH ×2 (10:22→22:30)
--- NOTE | 2020-08-11 11:08 | Electrocardiogram Report ---
Test Reason : Blood Pressure : / mmHG Vent. Rate : 093 BPM Atrial Rate : 093 BPM P-R Int : 134 ms QRS Dur : 084 ms QT Int : 406 ms P-R-T Axes : 048 077 044 degrees QTc Int : 504 ms Normal sinus rhythm Nonspecific ST abnormality Prolonged QT Abnormal ECG When compared with ECG of 21-AUG-2017 14:27, No significant change was found Confirmed by Félix Higgins ([id number]) on 08/11/2020 11:07:57 AM Referred By: REFERRED SELF Confirmed By:Félix Higgins
[2020-08-11 11:55] LABS: Glucose Pleural Fluid 293 mg/dl
[2020-08-11 12:01] LABS: Amylase Pleural Fluid 16 U/L; LDH Pleural Fluid 303 U/L; Total Protein Pleural Fluid 4.4 g/dl
[2020-08-11 12:10] LABS: Appearance Pleural Fluid HAZY; Basophils, Fluid 0 %; Color Pleural Fluid YELLOW; Eosinophils, Fluid 8 %; Lymphocytes, Fluid 25 %; Mono,Macrophage,Mesothelial 17 %; Neutrophils, Fluid 50 %; RBC Pleural Fluid (A) 3000 /uL; Source Pleural Fluid RIGHT LUNG; WBC Pleural Fluid (A) 3356 /uL
[2020-08-11] MEDS: traMADol HCL 50 MG TABLET PO PRN ×2 (12:15→20:12)
--- NOTE | 2020-08-11 12:58 | XRay Report ---
SINGLE VIEW CHEST CLINICAL HISTORY: Status post thoracentesis. FINDINGS: An AP, portable, upright chest radiograph is compared to study dated 08/10/2020. A right leyla ed central venous catheter is unchanged in position. The cardiac silhouette is partially obscured. Th e pulmonary vasculature is congested. There is a small to moderate right pleural effusion with associ ated right basilar consolidation. This has significantly decreased in size from yesterday. Trace pleu ral effusion is suspected on the left and there is left basilar atelectasis. No pneumothorax is seen. The skeletal structures are osteopenic. The bony thorax is grossly intact. IMPRESSION: 1. Pulmonary vascular congestion. 2. There is a small to moderate right pleural effusion with right basilar consolidation. This has sig nificantly decreased in size as compared to yesterday. 3. No pneumothorax is seen post procedure. ACT 112: Negative or not required by law. Electronically signed by: Guy Webb M.D. 08/11/2020 12:56 PM
[2020-08-11 13:07] LABS: Albumin Level 2.6 gm/dl (3.4-5.0); Bilirubin,Total 0.3 mg/dl (0.2-1); Total Protein 6.3 gm/dl (6.4-8.2)
--- NOTE | 2020-08-11 14:07 | Procedure Note ---
Procedure Note Date of Service August 11, 2020 Procedure: Diagnostic therapeutic ultrasound-guided catheter thoracentesis Etcher Apprentice Photoengraving: Dr. Indira Kincaid Indication: Pleural effusion Consent: Signed by patient and verified with timeout prior to procedure Anesthesia: 1% lidocaine without epinephrine local. Procedure: Consent was verified and timeout performed. Appropriate imaging studies were reviewed prior to the procedure. Patient was placed in a seated position and limited thoracic ultrasound was performed of the right chest. See separate imaging. Appropriate site above the diaphragm for thoracentesis was selected. The skin was prepped and draped in normal sterile fashion. Lidocaine was used for local analgesia. Fluid was aspirated via the finder needle. A small skin jemima was made with the scalpel and the catheter over the needle apparatus was advanced over the rib into the pleural space. Using the syringe one-way valve system, a total of 2100 mL's of cloudy serous fluid was removed. The catheter was removed and observed to be intact. A sterile dressing was applied. Post procedure chest x-ray was ordered. Fluid was sent for labs, culture and cytology. Complications: None Blood loss: Less than 1 cc Coding CPT Codes Pulmonary/Thoracic - Pulmonary and Thoracic: 07512 Pleural drainage w/imaging ([id number]) [facility] [place]odes ([place]arges) Pulmonary/Thoracic Procedure 1: Pulmonary and Thoracic: 24683 Pleural drainage w/imaging
[2020-08-11] MEDS ORDERED: MEROPENEM CONSULT ACITVE PRN (14:22)
[2020-08-11] MEDS: MEROPENEM 500 MG in SYRINGE 0 ML IV SCH ×2 (14:53→22:30)
--- NOTE | 2020-08-11 16:24 | CT Scan Report ---
CT SCAN OF THE CHEST AND ABDOMEN WITHOUT IV CONTRAST CLINICAL HISTORY: Abnormal chest x-ray. Pleural effusion. Recent thoracentesis. Right upper quadrant abdominal pain. COMPARISON STUDY: Chest x-ray dated 08/11/2020. Abdominal CT dated 12/19/2013. CT of the neck dated 01/20. TECHNIQUE: Unenhanced CT scan of the chest and abdomen was performed from the thoracic inlet to the p elvic inlet. Images are reviewed in the axial, sagittal, and coronal planes. IV contrast was not admi nistered as per the referring clinician. Note that the examination was performed in significantly sub optimal fashion without oral and IV contrast. A dose lowering technique was utilized adhering to the principles of ALARA. CT DOSE: 1303.77 mGy.cm FINDINGS: CHEST: Thyroid: Atrophic and heterogeneous. Thoracic aorta: The thoracic aorta is normal in caliber and demonstrates standard 3-vessel arch anato my. Heart: A right internal jugular central venous catheter is in place. The tip terminates within the ri ght atrium. The heart is normal in size and without pericardial effusion. The coronary arteries are d ensely calcified. Lungs and pleural spaces: There is a moderate right pleural effusion with associated right basilar co nsolidation. Bandlike atelectasis versus fibrosis is seen within the right upper lobe. Mild patchy gr oundglass opacities are seen in the right upper lobe on image #97. No pneumothorax is identified. Sca rring/atelectasis is seen at the left lung base. A 3 mm left apical pulmonary nodule seen on image #4 5 is unchanged dating back to 2018 and of doubtful significance. The trachea and central airways are clear. Mediastinum: There is no mediastinal lymphadenopathy. Dinah: Not well assessed without IV contrast. Axillae: There is no axillary lymphadenopathy. Bony thorax: The skeletal structures are osteopenic. Mild degenerative changes noted in the thoracic spine. No lytic or blastic lesions are identified. ABDOMEN: Liver: The unenhanced liver is normal in size, contour, and attenuation. The liver is elongated sugge sting Terry's lobe variant anatomy. There is no intrahepatic biliary ductal dilatation. Gallbladder: Surgically absent noting clips in the gallbladder fossa. Spleen: Normal in size and attenuation. Pancreas: The unenhanced pancreas is atrophic and grossly unremarkable. Adrenal glands: Unremarkable. Kidneys: The unenhanced kidneys demonstrate mild cortical atrophy and are without hydronephrosis. No renal calculi are identified. There is no evidence of contour deforming mass lesion. Abdominal vasculature: The abdominal aorta is normal in course and caliber noting scattered foci of a therosclerotic calcification. Bowel: There is no evidence of bowel obstruction. Peritoneum: There is no intraperitoneal free air or abdominal ascites. Lymphadenopathy: None. Skeletal structures: The skeletal structures are osteopenic. There is mild lumbar spondylosis. No lyt ic or blastic lesions are seen. IMPRESSION: 1. There is a moderate right pleural effusion with dense right basilar atelectasis. Correlate clinica lly for evidence of superimposed pneumonia. Continued radiographic follow-up to complete resolution i s recommended. 2. There is linear bandlike atelectasis versus fibrosis in the right upper lobe. 3. Patchy groundglass opacities are seen in the right upper lobe. This could be on an infectious/infl ammatory basis, or could represent reexpansion edema given recent thoracentesis. Clinical correlation will be required. 4. The left lung is clear noting bibasilar scarring/atelectasis. 5. There are no acute infectious or inflammatory findings in the abdomen. 6. Additional findings as above. ACT 112: Negative or not required by law. Electronically signed by: Guy Webb M.D. 08/11/2020 4:22 PM
--- NOTE | 2020-08-11 16:25 | Ultrasound Report ---
ULTRASOUND RIGHT UPPER QUADRANT ABDOMEN CLINICAL HISTORY: Right upper quadrant abdominal pain. COMPARISON STUDY: Abdominal CT performed the same day 08/11/2020. TECHNIQUE: Real-time, grayscale, and color flow sonography of the right upper quadrant of the abdomen was performed. Images are reviewed in the transverse and longitudinal planes. FINDINGS: Liver: The liver is normal in size and echotexture. The liver is elongated measuring 20 cm in length. There is no intrahepatic biliary ductal dilatation. The main portal vein is patent. Gallbladder: The gallbladder is normal in surgically absent. The common bile duct measures up to 0.5 cm in diameter. Pancreas: Visualized portions of the pancreatic head and body are normal in appearance. The splenic v ein is patent. Right kidney: Survey images of the right kidney demonstrate normal size and echotexture. There is no hydronephrosis. Ascites: None. Pleural spaces: A right pleural effusion is noted. IMPRESSION: 1. No acute sonographic abnormality is seen in the right upper quadrant noting status post cholecyste ctomy. 2. Right pleural effusion. ACT 112: Negative or not required by law. Electronically signed by: Guy Webb M.D. 08/11/2020 4:24 PM
[2020-08-11] MEDS: ACETAMINOPHEN 325 MG TAB PO PRN (16:44)
[2020-08-11] MEDS ORDERED: VANCOMYCIN CONSULT ACTIVE PRN (19:14)
[2020-08-11] MEDS ORDERED: VANCOMYCIN HCL 1,000 MG in SODIUM CHLORIDE 0.9% 250 ML IV SCH (19:15)
[2020-08-11] MEDS ORDERED: DAPTOmycin 500 MG in SYRINGE 0 ML IV SCH (19:30)
[2020-08-11] MEDS ORDERED: VANCOMYCIN HCL 2,500 MG in SODIUM CHLORIDE 0.9% 500 ML IV ONE (19:45)
--- NOTE | 2020-08-11 20:05 | Pharmacy Report ---
Pharmacy Abx Dose Short Note - Date of Service August 11, 2020 - Assessment & Plan Assessment 64 year old admitted with progressive shortness of breath, cough and fever. Concerns for pneumonia. S/p thoracentesis with cultures pending. 1/2 blood cultures with Gm positive cocci. Pharmacy consulted for vancomycin dosing. Patient started on meropenem earlier today. Plan Vancomycin * Will load with vancomycin 2500 mg x 1 (~22 mg/kg) * Patient not candidate for vancomycin AUC dosing d/t weight >100 kg - will utilize estimated kinetics to calculate dosing. Will start vancomycin 1250 mg (~11 mg/kg) iv q 12 hrs * Estimated kinetics: t1/2~12 hrs ,ke~0.055, CrCl ~61 - baseline Scr appears closer to 0.8 mg/dL. Less than traditional vancomycin dosing selected due to likelihood of accumulation as BMI >35 kg/m2 * Plan to order trough if vancomycin is to be continued >48 hrs Pharmacy will continue to follow and will adjust dose/frequency as necessary. Thank you.
[2020-08-11] MEDS: SERTRALINE HCL 100 MG TABLET PO SCH (20:13)
[2020-08-11] MEDS: PRIMIDONE 50 MG TAB PO SCH (20:14)
[2020-08-11] MEDS: guaiFENesin 600 MG TABCR PO SCH (20:14)
[2020-08-11] MEDS: INSULIN GLARGINE SOLOSTAR 100 UNITS/ML 3 ML PEN SC SCH (20:29)
[2020-08-12] MEDS: INSULIN ASPART 100 UNITS/ML 3 ML PEN SC SCH ×6 (00:32→21:33)
[2020-08-12] MEDS: traMADol HCL 50 MG TABLET PO PRN ×2 (02:44→18:44)
[2020-08-12] MEDS: MEROPENEM 500 MG in SYRINGE 0 ML IV SCH ×4 (04:10→22:19)
[2020-08-12] MEDS: ACETAMINOPHEN 325 MG TAB PO PRN ×2 (04:15→21:25)
[2020-08-12] MEDS: LEVOTHYROXINE SODIUM 175 MCG TABLET PO SCH (04:15)
[2020-08-12 06:10] LABS: Estimated Average Glucose 143 mg/dl; Hemoglobin A1C 6.6 % (4.5-5.6)
[2020-08-12] MEDS: ALBUT/IPRATROP 3MG/0.5MG NEB 3 ML VIAL NEB SCH ×4 (07:14→19:10)
--- NOTE | 2020-08-12 07:45 | Hospitalist Progress Note ---
Date of Service August 12, 2020 Assessment & Plan (1) Pleural effusion: (2) SOB (shortness of breath): CAP Pneumonia in immunocompromised pt Pt is 64 y/o F with PMH iron deficiency anemia, Sjogrens syndrome, scleroderma requiring extracorporal photopheresis s/p endovascular AV fistula to RUE, depression, GERD, insulin dependent DM I, ROJELIO, hyperthyroidism, presented to ER with c/o progressive SOB x 1 week. + cough, no fever In ER pt afebrile, 86-90% O2 sat on RA, other vitals stable. No leukocytosis. Negative Covid 19, influenza, BNP: 243 CXR: Moderate to large right-sided pleural effusion with diffuse right lung airspace opacities and volume loss. Supplemental oxygen Duoneb echo Pulmonology consult - s/o thoracentesis, 2L of pl. fluid removed - c/w exudate Started on meropenem Bacteremia 1 blood cultx - positive for Gram + positive cocci (staph) received zosyn in ED now on meropenem per pulm. added vancomycin SHONNA BUN: 31, Cr: 1.6. Baseline Cr: 0.8 Pt reports poor oral intake secondary to increased anxiety this week Gentle IVF Avoid nephrotoxic agents when possible Cr improved DM I Insulin Pump Pt currently very anxious secondary to loss of recently and reports is upset and confused and doesn't know her pump settings. Insulin pump was removed in ER prior to hospitalist leatha. Unable to find pt's pump settings in outpatient records Novolog sliding scale for now Glycemic pharmacy consult Scleroderma Has photophoresis through RUE AV fistula; Follows with Dr Magdaleno Has not been going for photophoresis (for past 1.5 months, usually goes [id number] ) recently secondary to husbands illness/passing may consider rheumatology consult Sjogren- Continue home meds HTN- hold lisinopril tonight Chronic Nausea. GERD- continue home meds Hyperthyroidism- Continue synthroid ROJELIO - continue CPAP with O2 HS Anxiety/Depression Continue sertraline, lorazepam Pt with increased anxiety/depression 2/2 this week. 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 effusion, hypoxia. Pt sitting up in bed, tearful about loss of her . She is on 4-6L of suppl. O2. S/p thoracentesis yesterday, pulmonary following. Review of Systems Review of Systems: All systems reviewed & are unremarkable except as noted in HPI & below Constitutional: + fatigue; no fever and no chills Respiratory: + cough (mild) and + dyspnea (mild, but using 6L of suppl. o2) Cardiovascular: + chest pain (R lower chest); no palpitations Gastrointestinal: + abdominal pain (RUQ); no nausea and no vomiting Physical Exam Constitutional: WD/WN, vitals as above Eyes: PERRL, conjunctivae normal, anicteric sclerae ENMT: external ear and nose normal, oropharynx normal Neck: trachea midline, no thyromegaly Respiratory: no labored breathing and does not use accessory muscles Cardiovascular: RRR, no murmur, no edema Chest (Breasts): Additional Comments: R lower chest tender to palp./ with movement Gastrointestinal (Abdomen): Inspection/Auscultation: abdomen normal to inspection and normal bowel sounds; abdomen not distended and no abdominal edema Percussion/Palpation: + abdomen tender (RUQ); no guarding and abdomen not rigid Musculoskeletal: no cyanosis or clubbing, extremities motor strength 5/5 Skin: no rashes, warm and dry Neurologic: PERRL, EOMI, accommodation nl, no face palsy, no dysarthria Psychiatric: Orientation: alert and oriented x 3 Genitourinary: no CVA tenderness Lymphatic: no lymphedema Results & Data Results & Data ([facility]) Vital Signs (Past 12 Hours) Vital Signs Temp Pulse Pulse Resp BP Pulse Ox 08/12/20 07:15 68 18 96 08/12/20 07:00 74 08/12/20 03:18 77 18 94 08/12/20 02:49 36.5 C 79 20 143/68 H 93 08/12/20 00:07 36.4 C L 74 16 135/73 95 08/11/20 22:45 77 15 94
[2020-08-12 07:50] LABS: Creatinine Clr Calc Pharmacy 116.5 ml/min; Est GFR (African American) 110.6; Est GFR (Non-African American) 95.5
[2020-08-12 07:55] LABS: Basophils # (auto) 0.01 K/uL (0-0.2); Basophils % (auto) 0.1 %; Eosinophils # (auto) 0.26 K/uL (0-0.5); Eosinophils % (auto) 3.5 %; Hematocrit (blood only) 37.8 % (37-47); Hemoglobin 11.8 g/dL (12.0-16.0); Immature Granulocytes # (auto) 0.01 K/uL (0.00-0.02); Immature Granulocytes % (auto) 0.1 %; Lymphocytes # (auto) 0.81 K/uL (1.2-3.4); Mean Corpuscular Hemoglobin 25.5 pg (25-34); Mean Corpuscular Hgb Conc 31.2 g/dL (32-36); Mean Corpuscular Volume 81.6 fL (80-100); Mean Platelet Volume 10.2 fL (7.4-10.4); Monocytes # (auto) 0.71 K/uL (0.11-0.59); Monocytes % (auto) 9.7 %; Neutrophils # (auto) 5.55 K/uL (1.4-6.5); Neutrophils % (auto) 75.6 %; Platelet Count 331 K/uL (130-400); RDW Coefficient of Variation 17.6 % (11.5-14.5); Red Blood Count 4.63 M/uL (4.2-5.4); White Blood Count 7.35 K/uL (4.8-10.8)
[2020-08-12] MEDS: LOPERAMIDE HCL 2 MG CAP PO SCH (08:06)
[2020-08-12] MEDS: SIMETHICONE 80 MG CHEW PO SCH (08:06)
[2020-08-12] MEDS: INSULIN GLARGINE SOLOSTAR 100 UNITS/ML 3 ML PEN SC SCH (08:47)
[2020-08-12] MEDS: VANCOMYCIN HCL 1,250 MG in SODIUM CHLORIDE 0.9% 250 ML IV SCH ×2 (08:47→19:30)
[2020-08-12] MEDS: SUCRALFATE 1 GM/10 ML UDC PO SCH ×4 (08:50→21:26)
[2020-08-12] MEDS: ADVANCED PROBIOTIC 1250 MG CAPSULE PO SCH ×2 (08:51→21:30)
[2020-08-12] MEDS: FLUTICASONE PROPIONATE NA SPR 16 GM BTL NAE SCH (08:51)
[2020-08-12] MEDS: lisinopril 20 MG TAB PO SCH (08:52)
[2020-08-12] MEDS: PILOCARPINE HCL 5 MG TABLET PO SCH ×3 (08:52→21:26)
[2020-08-12] MEDS: OMEGA-3 (PURIFIED FISH OIL) 1 GM CAP PO SCH (08:52)
[2020-08-12] MEDS: guaiFENesin 600 MG TABCR PO SCH ×2 (08:52→21:28)
[2020-08-12] MEDS: FERROUS GLUCONATE 324 MG TAB PO SCH (08:52)
[2020-08-12] MEDS: GABAPENTIN 300 MG CAP PO SCH ×2 (08:52→21:27)
[2020-08-12] MEDS: PANTOprazole 40 MG TAB PO SCH ×2 (08:52→21:30)
[2020-08-12] MEDS: HYDROXYCHLOROQUINE SULFATE 200 MG TAB PO SCH (08:53)
[2020-08-12] MEDS: busPIRone 5 MG TAB PO SCH ×2 (08:53→21:28)
[2020-08-12] MEDS: ASPIRIN 81 MG ECTAB PO SCH (08:53)
[2020-08-12] MEDS: ASCORBIC ACID 500 MG TAB PO SCH (08:53)
[2020-08-12] MEDS: MAGNESIUM OXIDE 400 MG TAB PO SCH (08:53)
[2020-08-12] MEDS: ROSUVASTATIN CALCIUM 20 MG TAB PO SCH (08:53)
[2020-08-12] MEDS: BACLOFEN 20 MG TAB PO SCH ×2 (08:53→21:28)
[2020-08-12] MEDS: amLODIPine BESYLATE 5 MG TAB PO SCH (08:53)
[2020-08-12] MEDS ORDERED: HEPARIN SODIUM FLUSH SCH (09:00)
[2020-08-12] MEDS ORDERED: SODIUM CHLORIDE 0.9% FLUSH SCH (09:00)
[2020-08-12 09:03] LABS: BUN Creatinine Ratio 33.8 (10-20); Calcium 8.7 mg/dl (8.5-10.1); Creatinine Clr Calc Pharmacy 92.9 ml/min; Est GFR (African American) 92.3; Est GFR (Non-African American) 79.7; Magnesium 2.5 mg/dl (1.8-2.4); Phosphorus 2.8 mg/dl (2.5-4.9); Potassium 4.8 mmol/L (3.5-5.1)
[2020-08-12] MEDS: COLESTIPOL HCL 1 GM TAB PO SCH ×2 (10:27→22:20)
[2020-08-12] MEDS: LORazepam 0.5 MG TAB PO PRN ×2 (10:27→21:25)
--- NOTE | 2020-08-12 11:42 | Psychiatric Consultation ---
Date of Consultation August 12, 2020 Impression / Recommendations Impression Dr. Zoya Castorena was directly involved in review and discussion of the patient's case and participated in medical decision making regarding treatment recommendations. RECOMMENDATIONS: 08/12 - Psychiatric consultation requested to evaluate patient for depression, recent of and expressed wishes. - Pt is likely experiencing emotions consistent with the grief process. Pt does endorse a history of depression and anxiety and has been taking sertraline and buspirone for several years per her report. Pt expresses feeling as though she has adequate support with family and pastoral care to process her loss and cope with grief. Pt was provided with additional resources for grief counseling in the region. - Pt does admit to thoughts of "just wanting to be home with my ", but denies true suicidal thinking, plan, means, or intent. Pt reports significant family support and also states her strong religion beliefs are protective factors with regard to suicidal actions. Patient's daughter was involved in psychiatric nurse liaison discussion regarding her symptoms, and was made aware of our involvement and recommendations. - Pt is declining medication adjustments at this time, and we discussed that changes to medication regimens are generally not indicated early in the grief process. Pt was educated on signs and symptoms of worsening depression and acute safety concerns. She was reassured that titration of sertraline could be considered if depressive symptoms were acutely worsened or if suicidal thoughts/intent should occur. - At this time, there is not indication for inpatient psychiatric admission. Our service will continue to offer emotional support to the patient as needed during her hospitalization. Please reach out to our service with any additional questions or updates. Risk Factors Assessment Do You Have Access To A Gun?: No Psych History Identifying Data 64-year-old female admitted medically on 08/10/2020 after presenting to the ED with shortness of breath. Pt is being treated for a pleural effusion and has numerous other medical conditions. Psychiatric consultation was requested to evaluate patient for depression, recent of her , and expressed wishes. Chief Complaint "Um, I'm ok." History of Present Illness 64-year-old female admitted medically on 08/10/2020 with pleural effusion after presenting to the ED with shortness of breath. PMH is significant for scleroderma, diabetes mellitus, hypothyroidism, hyperlipidemia, ROJELIO, gastroparesis, fibromyalgia, CKD, and anxiety. Pt is currently prescribed sertraline, buspirone, and lorazepam by her PCP. Psychiatric consultation was requested to evaluate the patient for depression, recent of her , and expressed wishes. Pt and her daughter were initially interviewed by our psychiatric nurse liaison last evening. Resources for requested rylan-based grief counseling were accepted by the patient. Pt was cooperative with psychiatric assessment, though politely began our conversation by reporting feeling as though she has adequate support in place to cope with the loss of her . Pt is tearful for the duration of our conversation, and desire to participate in conversation does seem to be somewhat limited. Pt was appreciative of counseling services provided and denied other needs. She reporting having numerous family members and additional supports through her buddhist which she feels to be helpful. Pt's daughter is also planning to stay with the patient upon discharge from the hospital. Pt does report a history of anxiety, and was started on sertraline and buspirone several years ago per her report. Pt does feel as though the medications were helpful at that time for the initial concerns. Pt does not express desire to adjust medications at this time. We did review symptoms of acute concern related to depression or the grief process, and patient was encouraged to follow-up with her PCP for medication adjustments if desired. Pt does state that she desired to be "home with my ", but denies true suicidal thoughts, plan, intent, or means. She states "but I would never do anything to hurt myself, I want to be with him in heaven one day." Pt does report strong religion beliefs and family supports which are significant protective factors. She admits to poor sleep and appetite." Pt states "It's only been a few days. We just buried him on Wednesday, I miss him." Pt was reassured that our service will be available to offer additional support as desired during her hospitalization. She was encouraged to reach out with any additional needs. Pt denied other concerns at this time. Past Psychiatric History Current Psychiatric Diagnosis: Grief; history of depression/anxiety Outpatient Services: Medications for anxiety and depression are being managed by PCP. Previous Psych Admissions: None Do You Have Access To A Gun?: No History of Previous Suicide Attempt: No Past Medication Trials: Including, but not limited to: 1. Ativan 2. Zoloft 3. BuSpar 4. Effexor (allergy list - ankle swelling) 5. Paxil (allergy list - "too strong of med") 6. Cymbalta (allergy list - sweating) 7. Prozac (allergy list - sweating) Allergies Allergy/AdvReac Type Severity Reaction Status Date / Time albuterol Allergy Severe SHORTNESS Verified 05/16/20 13:12 OF BREATH niacinamide Allergy Severe Sweating, Verified 05/16/20 13:12 redness, hives, sob nortriptyline Allergy Severe STOPPED Verified 05/16/20 13:12 BREATHING pregabalin Allergy Intermediate ANKLE Verified 05/16/20 13:12 SWELLING ropinirole Allergy Intermediate ANKLE Verified 05/16/20 13:12 SWELLING venlafaxine Allergy Intermediate ANKLE Verified 05/16/20 13:12 SWELLING animal dander Allergy Mild CONGESTION Verified 05/16/20 13:12 birch Allergy Unknown SHOWED UP Verified 05/16/20 13:12 ON ALLERGY TESTING cephalexin Allergy Unknown CAN'T Verified 05/16/20 13:12 REMEMBER clarithromycin Allergy Unknown CAN'T Verified 05/16/20 13:12 REMEMBER clindamycin Allergy Unknown CAN'T Verified 05/16/20 13:12 REMEMBER erythromycin base Allergy Unknown CAN'T Verified 05/16/20 13:12 REMEMBER grass pollen-perennial rye, Allergy Unknown + WITH Verified 05/16/20 13:12 standar ALLERGY TESTING house dust Allergy Unknown ALLERGY Verified 08/11/20 07:36 TESTING mold Allergy Unknown ALLERGY Verified 05/16/20 13:12 TESTED + sumatriptan AdvReac Severe "SEVERE Verified 05/16/20 13:12 JAW AND FACE LOCKING PAIN" aspirin AdvReac Intermediate "SEVERE Verified 05/16/20 13:12 STOMACH CRAMPS, PAIN, SWELLING, NAUSEA, BELCHING" celecoxib AdvReac Intermediate FELT Verified 05/16/20 13:12 "GOING INSANE" doxycycline AdvReac Intermediate EXTREME Verified 05/16/20 13:12 STOMACH PAIN, ANKLE & LEG SWELLING metoclopramide AdvReac Intermediate "EXTREME Verified 05/16/20 13:12 MUSCLE SPASMS IN LEGS, EARS, AND STOMACH" morphine AdvReac Intermediate "FELT Verified 05/16/20 13:12 DIZZY, NAUSEOUS, LOSS OF MYSELF" paroxetine AdvReac Intermediate "TOO Verified 05/16/20 13:12 STRONG OF MED" duloxetine AdvReac Mild SWEATING Verified 05/16/20 13:12 fluoxetine AdvReac Mild SWEATING Verified 05/16/20 13:12 oxycodone AdvReac Mild SPACED OUT Verified 05/16/20 13:12 propoxyphene AdvReac Mild SPACED OUT Verified 05/16/20 13:12 azelastine AdvReac Unknown NOSE BLEEDS Verified 05/16/20 13:12 Home Medications Medication Instructions Recorded Confirmed Type ascorbic acid (vitamin C) 500 mg 500 mg PO DAILY cap 04/07/18 08/10/20 History capsule aspirin 81 mg tablet,delayed 81 mg PO DAILY 04/07/18 08/10/20 History release cranberry 400 mg capsule 400 mg PO DAILY 04/07/18 08/10/20 History fluticasone propionate 50 2 sprays INTNAS DAILY 04/07/18 08/10/20 History mcg/actuation nasal spray,suspension gabapentin 300 mg capsule 600 mg PO BID cap 04/07/18 08/10/20 History omega-3 fatty acids 1,000 mg 1,000 mg PO DAILY 04/07/18 08/10/20 History capsule pilocarpine HCl 5 mg tablet 3 tab PO TID tab 04/07/18 08/10/20 History prochlorperazine maleate 10 mg 10 mg PO Q8H PRN tab 04/07/18 08/10/20 History tablet promethazine 25 mg tablet 25 mg PO BID PRN tab 04/07/18 08/10/20 History rosuvastatin 20 mg tablet 20 mg PO QAM 04/07/18 08/10/20 History sertraline 100 mg tablet 100 mg PO HS tab 04/07/18 08/10/20 History tolterodine 4 mg capsule,extended 4 mg PO QAM 04/07/18 08/10/20 History release 24 hr Probiotic 3,000 mmu cells PO BID 10/04/18 08/10/20 History tramadol 50 mg tablet 50 mg PO Q6H PRN 07/27/19 08/10/20 History Combivent Respimat 1 puff INHALATION QID 12/15/19 08/10/20 History Imodium Multi-Symptom Relief 2 tab PO QAM 12/15/19 08/10/20 History buspirone 5 mg PO BID 12/15/19 08/10/20 History colestipol 1 g PO BID 12/15/19 08/10/20 History ferrous gluconate 324 mg PO DAILY 12/15/19 08/10/20 History hydroxychloroquine 400 mg PO QAM 12/15/19 08/10/20 History lisinopril 20 mg PO QAM 12/15/19 08/10/20 History magnesium 200 mg PO DAILY 12/15/19 08/10/20 History omeprazole 40 mg PO BID 12/15/19 08/10/20 History primidone 50 mg PO HS 12/15/19 08/10/20 History armodafinil 250 mg PO DAILY 08/10/20 08/10/20 History baclofen 20 mg PO BID 08/10/20 08/10/20 History insulin aspart U-100 [Novolog unit 08/10/20 History U-100 Insulin aspart] levothyroxine [Synthroid] 175 mcg PO DAILY 08/10/20 08/10/20 History lorazepam 0.5 mg PO Q8H PRN 08/10/20 08/10/20 History simethicone 80 mg PO Q6H PRN 08/10/20 08/10/20 History sucralfate 10 ml PO QID 08/10/20 08/10/20 History Family History Denies known family history of mental health conditions. Substance Abuse History Denies significant alcohol or tobacco use. Denies use of illicit substances. Personal History Living Arrangements: Home (in [place]) Highest Grade Completed: High School Graduate Employment Status: Retired (previously owned a daycare for 27 years) Marital Status: ( of only two weeks ago) Number Of Children: 2 adult children, numerous grandchildren Beliefs That Will Affect Care: Episcopal History of Legal Problems: Denied Psychological Trauma History Comment: Denied history; recent of due to cancer Patient History Medical History Anxiety Asthma rarely uses PRN inh Degenerative disc disease Depression Diabetes mellitus Fibromyalgia Gastroparesis GERD (gastroesophageal reflux disease) Glaucoma Grief reaction High cholesterol History of IBS Hypothyroid Insulin pump in place Liver lesion Migraine Morbid obesity On home oxygen therapy 1 LPM qHS ROJELIO (obstructive sleep apnea) CPAP DEVICE Osteoarthritis Overactive bladder Scleredema Sjogren's disease Urinary leakage Surgical History Cataract RT/LEFT H/O brain surgery CHIARI MALFORMATION 2014 H/O breast biopsy H/O eye surgery LASER SURGERY FOR GLAUCOMA H/O: hysterectomy History of biopsy History of colonoscopy History of esophagogastroduodenoscopy (EGD) History of tooth extraction Hx of cholecystectomy Family History Daughter Family history of reaction to anesthesia PONV Social History Smoking Status: Never smoker Second Hand Exposure: No; Hx Alcohol Use: No Hx Substance Use: No Preferred Language: Paraguayan Communication Ability: Effective 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 Beliefs That Will Affect Care: Episcopal marital status: / Current Living Situation: Alone Other Information That Helps Us Care for You: No Feels Safe at Home: Yes Safety Concerns: Feels Safe At This Time Assistive Devices: Oxygen - Continuous Assistive Devices Comment: Partials and diabetic insulin pump Physical Exam Psychiatric: Orientation: alert, oriented x 3 and cooperative (polite, but limited desire to participate in conversation) Apperance: appropriately dressed, appropriately groomed and appeared stated age Obese-appearing female, laying in bed - mildly distressed and consistently tearful. Pt is appropriately dressed for setting, wearing hospital gown. She has short badillo hair which appears clean. Level of hygiene and grooming appear adequate. Eye Contact: + poor eye contact (staring straight ahead in room) Motor Behavior: no abnormal motor movements (observed while sitting upright in bed) Speech: normal rate/rhythm/volume of speech (polite tone, but non-spontaneous and brief responses to questions) Affect: + depressed affect and + tearful affect Mood: + depressed mood Thought Process: goal directed thought process and + concrete thought process Thought Content: reality based without delusions and + loneliness (grief); no hopelessness and no worthlessness Suicidal Thoughts: denies suicidal thoughts, denies suicidal plan and denies suicidal intent does endorse passive wishes to be with her , but no thoughts or intent to harm herself or end her life Homicidal Thoughts: denies homicidal thoughts Hallucinations: no auditory hallucinations and no visual hallucinations Cognition: attention grossly intact and language grossly intact Estimated Intelligence: consistent with education level Insight: + fair insight Judgement: + fair judgement Vital Signs (Past 24 Hours): Last Vital Signs Temp 36.6 C 08/12/20 07:51 Pulse 86 08/12/20 11:03 Resp 18 08/12/20 11:03 BP 134/68 08/12/20 07:51 Pulse Ox 92 08/12/20 11:03 Review of Systems Constitutional: denied Cardiovascular: denied Respiratory: denied Gastrointestinal: denied Neurological: denied Psychiatric: denies symptoms other than stated above Total of at least 10 systems reviewed, pertinent positives as above and in HPI. Results & Data (PSY) Medications Administered Acetaminophen (Acetaminophen 325 Mg Tab) 650 mg PO Q4H PRN PRN Reason: Pain or Fever Stop: 09/09/20 21:17 Last Admin: 08/12/20 04:15 Dose: 650 mg Documented by: [id number] Admin: 08/11/20 16:44 Dose: 650 mg Documented by: [id number] Albuterol (Albut/Ipratrop 3mg/0.5mg Neb 3 Ml Vial) 3 ml NEB QIDR [facility] Stop: 09/09/20 21:17 Last Admin: 08/12/20 11:03 Dose: 3 ml Documented by: [id number] Admin: 08/12/20 07:14 Dose: 3 ml Documented by: [id number] Admin: 08/11/20 19:22 Dose: 3 ml Documented by: [id number] Admin: 08/11/20 19:10 Dose: Not Given Documented by: [id number] Admin: 08/11/20 16:37 Dose: 3 ml Documented by: [id number] Admin: 08/11/20 07:52 Dose: 3 ml Documented by: [id number] Admin: 08/10/20 21:42 Dose: 3 ml Documented by: [id number] Albuterol (Albuterol Hfa 8 Gm Inhaler) 1 puffs INH QIDR PRN PRN Reason: Shortness Of Breath Or Wheezing Stop: 09/10/20 00:07 Last Admin: 08/11/20 05:36 Dose: 1 puffs Documented by: [id number] Amlodipine Besylate (Amlodipine Besylate 5 Mg Tab) 5 mg PO QAM [facility] Stop: 09/10/20 08:59 Last Admin: 08/12/20 08:53 Dose: 5 mg Documented by: [id number] Admin: 08/11/20 08:34 Dose: 5 mg Documented by: [id number] Ascorbic Acid (Ascorbic Acid 500 Mg Tab) 500 mg PO DAILY [facility] Stop: 09/10/20 08:59 Last Admin: 08/12/20 08:53 Dose: 500 mg Documented by: [id number] Admin: 08/11/20 08:32 Dose: 500 mg Documented by: [id number] Aspirin (Aspirin 81 Mg Ectab) 81 mg PO DAILY [facility] Stop: 09/10/20 08:59 Last Admin: 08/12/20 08:53 Dose: 81 mg Documented by: [id number] Admin: 08/11/20 08:35 Dose: 81 mg Documented by: [id number] Baclofen (Baclofen 20 Mg Tab) 20 mg PO BID [facility] Stop: 09/09/20 21:17 Last Admin: 08/12/20 08:53 Dose: 20 mg Documented by: [id number] Admin: 08/11/20 20:15 Dose: 20 mg Documented by: [id number] Admin: 08/11/20 08:35 Dose: 20 mg Documented by: [id number] Admin: 08/10/20 22:25 Dose: 20 mg Documented by: [id number] Buspirone HCl (Buspirone 5 Mg Tab) 5 mg PO BID [facility] Stop: 09/09/20 21:17 Last Admin: 08/12/20 08:53 Dose: 5 mg Documented by: [id number] Admin: 08/11/20 20:15 Dose: 5 mg Documented by: [id number] Admin: 08/11/20 08:35 Dose: 5 mg Documented by: [id number] Admin: 08/10/20 22:25 Dose: 5 mg Documented by: [id number] Colestipol HCl (Colestipol Hcl 1 Gm Tab) 1 gm PO BID@1000,2200 [facility] Stop: 09/09/20 21:59 Last Admin: 08/12/20 10:27 Dose: 1 gm Documented by: [id number] Admin: 08/11/20 22:30 Dose: 1 gm Documented by: [id number] Admin: 08/11/20 10:22 Dose: 1 gm Documented by: [id number] Admin: 08/10/20 22:25 Dose: 1 gm Documented by: [id number] Ferrous Gluconate (Ferrous Gluconate 324 Mg Tab) 324 mg PO DAILY [facility] Stop: 09/10/20 08:59 Last Admin: 08/12/20 08:52 Dose: 324 mg Documented by: [id number] Admin: 08/11/20 08:33 Dose: 324 mg Documented by: [id number] Fish Oil ([place]-3 (Purified Fish Oil) 1 Gm Cap) 1 gm PO DAILY [facility] Stop: 09/10/20 08:59 Last Admin: 08/12/20 08:52 Dose: 1 gm Documented by: [id number] Admin: 08/11/20 08:33 Dose: 1 gm Documented by: [id number] Fluticasone Propionate (Fluticasone Propionate Na Spr 16 Gm Btl) 2 sprays MIRNA DAILY [facility] Stop: 09/10/20 08:59 Last Admin: 08/12/20 08:51 Dose: 2 sprays Documented by: [id number] Admin: 08/11/20 08:37 Dose: 2 sprays Documented by: [id number] Gabapentin (Gabapentin 300 Mg Cap) 600 mg PO BID [facility] Stop: 09/09/20 21:17 Last Admin: 08/12/20 08:52 Dose: 600 mg Documented by: [id number] Admin: 08/11/20 20:14 Dose: 600 mg Documented by: [id number] Admin: 08/11/20 08:36 Dose: 600 mg Documented by: [id number] Admin: 08/10/20 22:22 Dose: 600 mg Documented by: [id number] Guaifenesin (Guaifenesin 600 Mg Tabcr) 600 mg PO Q12 [facility] Stop: 09/10/20 20:59 Last Admin: 08/12/20 08:52 Dose: 600 mg Documented by: [id number] Admin: 08/11/20 20:14 Dose: 600 mg Documented by: [id number] Hydroxychloroquine Sulfate (Hydroxychloroquine Sulfate 200 Mg Tab) 400 mg PO QAM [facility] Stop: 09/10/20 08:59 Last Admin: 08/12/20 08:53 Dose: 400 mg Documented by: [id number] Admin: 08/11/20 08:33 Dose: 400 mg Documented by: [id number] Vancomycin HCl 1,250 mg/ (Sodium Chloride) 275 mls @ 200 mls/hr IV Q12H [facility] Stop: 08/19/20 07:59 Last Infusion: 08/12/20 10:56 Dose: 0 mls/hr Documented by: [id number] Admin: 08/12/20 08:47 Dose: 200 mls/hr Documented by: [id number] Meropenem 500 mg/ Syringe 10 mls @ 2 mls/min IV Q6H [facility]; Protocol Stop: 02/01/21 03:59 Last Admin: 08/12/20 04:10 Dose: 2 mls/min Documented by: [id number] Insulin Aspart (Insulin Aspart 100 Units/Ml 3 Ml Pen) 0 units SC ACHS [facility] Stop: 09/09/20 21:17 Last Admin: 08/12/20 08:48 Dose: 5 units Documented by: [id number] Cosigned by: [id number] Admin: 08/11/20 20:28 Dose: 5 units Documented by: [id number] Cosigned by: [id number] Admin: 08/11/20 16:36 Dose: Not Given Documented by: [id number] Cosigned by: [id number] Admin: 08/11/20 12:15 Dose: 22 units Documented by: [id number] Cosigned by: [id number] Admin: 08/11/20 08:49 Dose: 15 units Documented by: [id number] Cosigned by: [id number] Admin: 08/10/20 22:33 Dose: 15 units Documented by: [id number] Cosigned by: [id number] Insulin Glargine (Insulin Glargine Solostar 100 Units/Ml 3 Ml Pen) 25 units SC BID [facility] Stop: 09/10/20 20:59 Last Admin: 08/12/20 08:47 Dose: 25 units Documented by: [id number] Cosigned by: [id number] Admin: 08/11/20 20:29 Dose: 25 units Documented by: [id number] Cosigned by: [id number] Ipratropium [place] (Ipratropium [place] Hfa Inhaler) 1 puffs INH QIDR PRN PRN Reason: Shortness Of Breath Or Wheezing Stop: 09/10/20 00:06 Last Admin: 08/11/20 05:36 Dose: 1 puffs Documented by: [id number] Lactobacillus Acidoph/Casei/Rhamnos (Advanced Probiotic 1250 Mg Capsule) 2 cap PO BID [facility] Stop: 09/09/20 21:44 Last Admin: 08/12/20 08:51 Dose: 2 cap Documented by: [id number] Admin: 08/11/20 20:14 Dose: 2 cap Documented by: [id number] Admin: 08/11/20 08:34 Dose: 2 cap Documented by: [id number] Admin: 08/10/20 22:28 Dose: 2 cap Documented by: [id number] Levothyroxine Sodium (Levothyroxine Sodium 175 Mcg Tablet) [facility]: 09/10/20 06:29 Last Admin: 08/12/20 04:15 Dose: 175 mcg Documented by: [id number] Admin: 08/11/20 05:23 Dose: 175 mcg Documented by: [id number] Lisinopril (Lisinopril 20 Mg Tab) 20 mg PO QAM [facility] Stop: 09/10/20 08:59 Last Admin: 08/12/20 08:52 Dose: 20 mg Documented by: [id number] Admin: 08/11/20 08:32 Dose: 20 mg Documented by: [id number] Loperamide [facility] ([facility] Hcl 2 Mg Cap) [facility]: 09/10/20 08:59 Last Admin: 08/12/20 08:06 Dose: 2 mg Documented by: [id number] Admin: 08/11/20 05:26 Dose: 2 mg Documented by: [id number] Lorazepam (Lorazepam 0.5 Mg Tab) 0.5 mg PO Q8H PRN PRN Reason: Anxiety Stop: 09/09/20 21:17 Last Admin: 08/12/20 10:27 Dose: 0.5 mg Documented by: [id number] Admin: 08/11/20 08:32 Dose: 0.5 mg Documented by: [id number] Magnesium Oxide (Magnesium Oxide 400 Mg Tab) 400 mg PO DAILY [facility] Stop: 09/10/20 08:59 Last Admin: 08/12/20 08:53 Dose: 400 mg Documented by: [id number] Admin: 08/11/20 08:32 Dose: 400 mg Documented by: [id number] Miscellaneous (Armodafinil!Order Awaiting Action) 1 ea N/A QS [facility] Stop: 09/10/20 00:00 Last Admin: 08/12/20 08:49 Dose: Not Given Documented by: [id number] Admin: 08/12/20 00:30 Dose: Not Given Documented by: [id number] Admin: 08/11/20 16:27 Dose: Not Given Documented by: [id number] Admin: 08/11/20 09:53 Dose: Not Given Documented by: [id number] Admin: 08/11/20 00:54 Dose: Not Given Documented by: [id number] Pantoprazole Sodium (Pantoprazole 40 Mg Tab) 40 mg PO BID [facility] Stop: 09/09/20 21:44 Last Admin: 08/12/20 08:52 Dose: 40 mg Documented by: [id number] Admin: 08/11/20 20:13 Dose: 40 mg Documented by: [id number] Admin: 08/11/20 08:34 Dose: 40 mg Documented by: [id number] Admin: 08/10/20 22:28 Dose: 40 mg Documented by: [id number] Pilocarpine HCl (Pilocarpine Hcl 5 Mg Tablet) 15 mg PO TID [facility] Stop: 09/09/20 21:17 Last Admin: 08/12/20 08:52 Dose: 15 mg Documented by: [id number] Admin: 08/11/20 20:13 Dose: 15 mg Documented by: [id number] Admin: 08/11/20 14:28 Dose: 15 mg Documented by: [id number] Admin: 08/11/20 08:35 Dose: 15 mg Documented by: [id number] Admin: 08/10/20 22:24 Dose: 15 mg Documented by: [id number] Primidone (Primidone 50 Mg Tab) 50 mg PO [facility] Stop: 09/09/20 21:17 Last Admin: 08/11/20 20:14 Dose: 50 mg Documented by: [id number] Admin: 08/10/20 22:23 Dose: 50 mg Documented by: [id number] Promethazine HCl (Promethazine Hcl 25 Mg Tab) 25 mg PO BID PRN PRN Reason: Nausea Stop: 09/09/20 21:17 Last Admin: 08/10/20 22:16 Dose: 25 mg Documented by: [id number] Rosuvastatin Calcium (Rosuvastatin Calcium 20 Mg Tab) [facility] Stop: 09/10/20 08:59 Last Admin: 08/12/20 08:53 Dose: 20 mg Documented by: [id number] Admin: 08/11/20 08:32 Dose: 20 mg Documented by: [id number] Sertraline HCl (Sertraline Hcl 100 Mg Tablet) 100 mg PO [facility] Stop: 09/09/20 21:17 Last Admin: 08/11/20 20:13 Dose: 100 mg Documented by: [id number] Admin: 08/10/20 22:29 Dose: 100 mg Documented by: [id number] Simethicone (Simethicone 80 Mg Chew) [facility] Stop: 09/10/20 08:59 Last Admin: 08/12/20 08:06 Dose: 120 mg Documented by: [id number] Admin: 08/11/20 08:35 Dose: 120 mg Documented by: [id number] Sucralfate (Sucralfate 1 Gm/10 Ml Udc) 1 gm PO QID [facility] Stop: 09/09/20 21:17 Last Admin: 08/12/20 08:50 Dose: 1 gm Documented by: [id number] Admin: 08/11/20 20:15 Dose: 1 gm Documented by: [id number] Admin: 08/11/20 16:44 Dose: 1 gm Documented by: [id number] Admin: 08/11/20 12:15 Dose: 1 gm Documented by: [id number] Admin: 08/11/20 08:36 Dose: 1 gm Documented by: [id number] Admin: 08/10/20 22:21 Dose: 1 gm Documented by: [id number] Tramadol HCl (Tramadol Hcl 50 Mg Tablet) 50 mg PO Q6H PRN PRN Reason: Pain Stop: 09/09/20 21:17 Last Admin: 08/12/20 02:44 Dose: 50 mg Documented by: [id number] Admin: 08/11/20 20:12 Dose: 50 mg Documented by: [id number] Admin: 08/11/20 12:15 Dose: 50 mg Documented by: [id number] Coding Level of Care Code 49519 [facility] Intl Hosp Care Lvl 2
--- NOTE | 2020-08-12 11:42 | XRay Report ---
SINGLE VIEW CHEST CLINICAL HISTORY: Pleural effusion. FINDINGS: An AP, portable, upright chest radiograph is compared to chest x-ray and chest CT dated 07/20. A right sided central venous catheter is unchanged in position. The heart is top normal for p rojection. Pulmonary vascular congestion persists. A right pleural effusion is unchanged with associa shayla right basilar consolidation. Bandlike scarring/atelectasis is again seen in the right upper lung. The left lung appears clear noting basilar atelectasis. No pneumothorax is seen. The skeletal struct ures are osteopenic. The bony thorax is grossly intact. IMPRESSION: 1. No significant change from yesterday. Pulmonary vascular congestion persists. 2. There is a small to moderate right pleural effusion with right basilar consolidation. ACT 112: Negative or not required by law. Electronically signed by: Guy Webb M.D. 08/12/2020 11:41 AM
--- NOTE | 2020-08-12 12:13 | Pulmonology Progress Note ---
Date of Service August 12, 2020 Assessment & Plan (1) Pleural effusion on right: --Acute hypoxic respiratory failure Likely related to the underlying pleural effusion. Chest x-ray today remonstrates small to moderate-sized right pleural effusion. Effusion appears neutrophilic with some lymphocytic component. 25% lymphocytes were noted. It does appear to be an exudate. Cytology is pending. Cultures from pleural fluid are negative thus far. Repeat thoracentesis may need to be completed versus pigtail catheter. Blood cultures growing Staphylococcus species. Recommend repeat blood cultures. I will defer this until tomorrow given that she is very emotional today. I recommend starting her on low-dose IV diuretics. (Ordered) she does have grade 1 diastolic dysfunction noted on the echo. She is currently on broad-spectrum antibiotics. I am repeating a procalcitonin today. Initial procalcitonin with unremarkable. --ROJELIO CPAP nightly and as needed shortness of breath On armodafinil at home --History of scleroderma and Sjogrens Receiving photopheresis. On hydroxychloroquine and pilocarpine as well. No pulmonary hypertension noted on the echo. I offered her condolences for the loss of her . (2) Acute respiratory failure with hypoxia: (3) ROJELIO (obstructive sleep apnea): (4) Scleroderma: (5) Grief reaction: Admission and Anticipated Discharge Date Admission Date: August 10, 2020 Subjective Patient is very emotional today she is reminiscing the recent loss of her . Yesterday, there is a potential suicidal ideation. Psychiatry is going to see her after my visit today. She notes that her shortness of breath is improving. She does have chest pain when taking deep breaths. She also has pain in her lower extremities. She does feel intermittently nauseous. Her diet and appetite have been poor. Review of Systems Review of Systems: All systems reviewed & are unremarkable except as noted in HPI & below Physical Exam Physical Exam: Constitutional: No acute distress HEENT: EOMI, PERRLA Respiratory system: Decreased air entry on the right side, positive crackles bilateral lower lobes, no wheeze, no rhonchi CVS: S1-S2 positive, no murmurs or gallops, P2, right-sided permacath Abdomen: Soft, nondistended, positive bowel sounds x4, obese, mild right upper quadrant tenderness Extremities: +2 pulses bilaterally radialis/ dorsalis pedis, no cyanosis, no edema Neuro: Awake alert oriented x3 Psych: Emotional and depressed G/U: No Coe Skin: no rashes, warm and dry Lymphatic: no cervical or axillary lymphadenopathy Results & Data Results & Data ([facility]) Vital Signs (Past 12 Hours) Vital Signs Temp Pulse Pulse Resp BP Pulse Ox 08/12/20 12:08 98.1 F 77 20 114/55 L 92 08/12/20 11:03 86 18 92 08/12/20 07:51 97.9 F 77 18 134/68 94 08/12/20 07:15 68 18 96 08/12/20 07:00 74 08/12/20 03:18 77 18 94 08/12/20 02:49 97.7 F 79 20 143/68 H 93 I reviewed the vital signs, labs and imaging. I reviewed the chest x-ray today which demonstrates persistent right-sided effusion. PG Care Time/CCT Total # of Minutes Spent Total Time Spent with Patient: Total time spent is greater than 50% in coordination of care (as documented) at patient's floor/unit and/or counseling patient: Coding Level of Care Code 44633 Subseq Hosp Care Lvl 3 Diagnoses Pleural effusion on right J90 Acute respiratory failure with hypoxia J96.01 ROJELIO (obstructive sleep apnea) G47.33 Scleroderma M34.9 Grief reaction F43.21
[2020-08-12] MEDS: FUROSEMIDE 20 MG in SYRINGE 0 ML IV SCH (12:55)
[2020-08-12] MEDS: LIDOCAINE 5% 1 PATCH TD SCH ×2 (12:55)
[2020-08-12] MEDS ORDERED: INSULIN GLARGINE SOLOSTAR 100 UNITS/ML 3 ML PEN SQ STA (20:18)
[2020-08-12] MEDS: PRIMIDONE 50 MG TAB PO SCH (21:26)
[2020-08-12] MEDS: SERTRALINE HCL 100 MG TABLET PO SCH (21:27)
[2020-08-13] MEDS: MEROPENEM 500 MG in SYRINGE 0 ML IV SCH ×4 (03:27→21:57)
[2020-08-13] MEDS: ACETAMINOPHEN 325 MG TAB PO PRN (03:32)
[2020-08-13] MEDS: LEVOTHYROXINE SODIUM 175 MCG TABLET PO SCH (06:26)
[2020-08-13] MEDS: ALBUT/IPRATROP 3MG/0.5MG NEB 3 ML VIAL NEB SCH (07:27)
[2020-08-13] MEDS ORDERED: VANCOMYCIN TROUGH ONE (07:30)
[2020-08-13 07:37] LABS: Basophils # (auto) 0.02 K/uL (0-0.2); Basophils % (auto) 0.4 %; Eosinophils # (auto) 0.25 K/uL (0-0.5); Eosinophils % (auto) 4.8 %; Hematocrit (blood only) 35.5 % (37-47); Hemoglobin 11.3 g/dL (12.0-16.0); Immature Granulocytes # (auto) 0.01 K/uL (0.00-0.02); Immature Granulocytes % (auto) 0.2 %; Lymphocytes # (auto) 0.77 K/uL (1.2-3.4); Lymphocytes % (auto) 14.8 %; Mean Corpuscular Hemoglobin 25.7 pg (25-34); Mean Corpuscular Hgb Conc 31.8 g/dL (32-36); Mean Corpuscular Volume 80.9 fL (80-100); Mean Platelet Volume 9.9 fL (7.4-10.4); Monocytes # (auto) 0.48 K/uL (0.11-0.59); Monocytes % (auto) 9.2 %; Neutrophils # (auto) 3.69 K/uL (1.4-6.5); Neutrophils % (auto) 70.6 %; Platelet Count 326 K/uL (130-400); RDW Coefficient of Variation 17.5 % (11.5-14.5); RDW Standard Deviation 52.6 fL (36.4-46.3); Red Blood Count 4.39 M/uL (4.2-5.4); White Blood Count 5.22 K/uL (4.8-10.8)
[2020-08-13] MEDS ORDERED: ALBUT/IPRATROP 3MG/0.5MG NEB 3 ML VIAL NEB PRN (08:00)
[2020-08-13 08:10] LABS: BUN Creatinine Ratio 27.4 (10-20); Calcium 8.7 mg/dl (8.5-10.1); Creatinine Clr Calc Pharmacy 107.9 ml/min; Est GFR (African American) 107.9; Est GFR (Non-African American) 93.1; Magnesium 2.3 mg/dl (1.8-2.4); Phosphorus 2.5 mg/dl (2.5-4.9); Potassium 4.3 mmol/L (3.5-5.1)
--- NOTE | 2020-08-13 08:34 | Pharmacy Report ---
Pharmacy Abx Dose Short Note - Date of Service August 13, 2020 - Assessment & Plan Assessment 64 year old F receiving vancomycin/meropenem for treatment of pulmonary infection and possible bacteremia Day # 3 of antimicrobial therapy. Plan Vancomycin * Trough level of 13.4 mcg/mL is subtherapeutic but represents level prior to the fourth dose. Expect accumulation with patient's body habitus. * Continue dose of 1250 mg IV every 12 hours * Goal trough level for bacteremia : ~15 mcg/mL * Additional troughs to be determined based on length of therapy Pharmacy will continue to follow and will adjust dose/frequency as necessary. Thank you.
--- NOTE | 2020-08-13 08:39 | Hospitalist Progress Note ---
Date of Service August 13, 2020 Assessment & Plan (1) Pleural effusion: (2) SOB (shortness of breath): CAP Pneumonia in immunocompromised pt Pt is 64 y/o F with PMH iron deficiency anemia, Sjogrens syndrome, scleroderma requiring extracorporal photopheresis s/p endovascular AV fistula to RUE, depression, GERD, insulin dependent DM I, ROJELIO, hyperthyroidism, presented to ER with c/o progressive SOB x 1 week. + cough, no fever In ER pt afebrile, 86-90% O2 sat on RA, other vitals stable. No leukocytosis. Negative Covid 19, influenza, BNP: 243 CXR: Moderate to large right-sided pleural effusion with diffuse right lung airspace opacities and volume loss. Supplemental oxygen Duoneb Pulmonology consult - s/p thoracentesis, 2L of pl. fluid removed - c/w exudate Started on meropenem Bacteremia 1 blood cultx - positive for Gram + positive cocci (staph) received zosyn in ED now on meropenem per pulm. added vancomycin Repeat blood cultx Echo - obtained d/t pl. effusion, then reviewed for poss. vegetations (none found) - no regional wall motion abnormalities, LV is hyperdynamic, EF> 70%, Grade I diastolic dysfunction, no significant valvular disease SHONNA BUN: 31, Cr: 1.6. Baseline Cr: 0.8 Pt reports poor oral intake secondary to increased anxiety this week Gentle IVF Avoid nephrotoxic agents when possible Cr improved DM I Insulin Pump Pt currently very anxious secondary to loss of recently and reports is upset and confused and doesn't know her pump settings. Insulin pump was removed in ER prior to hospitalist leatha. Unable to find pt's pump settings in outpatient records Novolog sliding scale for now Glycemic pharmacy consult Scleroderma Has photophoresis through RUE AV fistula; Follows with Dr Magdaleno Has not been going for photophoresis (for past 1.5 months, usually goes [id number] ) recently secondary to husbands illness/passing may consider rheumatology consult Sjogren - Continue home meds HTN - hold lisinopril tonight Chronic Nausea. GERD- continue home meds Hyperthyroidism- Continue synthroid ROJELIO - continue CPAP with O2 HS Anxiety/Depression Continue sertraline, lorazepam Pt with increased anxiety/depression 2/2 this week. 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 effusion, hypoxia. Pt laying in bed, tearful about loss of her . She is on 4L of suppl. O2. S/p thoracentesis, pulmonary following, poss. thoracentesis today. Review of Systems Review of Systems: All systems reviewed & are unremarkable except as noted in HPI & below Constitutional: + fatigue; no fever and no chills Respiratory: + cough (mild) and + dyspnea (mild, but using 6L of suppl. o2) Cardiovascular: + chest pain (R lower chest); no palpitations Gastrointestinal: no abdominal pain, no nausea and no vomiting Genitourinary: + dysuria Psychiatric: + depression and + anhedonia Physical Exam Constitutional: WD/WN, vitals as above Eyes: PERRL, conjunctivae normal, anicteric sclerae ENMT: external ear and nose normal, oropharynx normal Neck: trachea midline, no thyromegaly Respiratory: no labored breathing and does not use accessory muscles Cardiovascular: RRR, no murmur, no edema Gastrointestinal (Abdomen): Inspection/Auscultation: abdomen normal to inspection and normal bowel sounds; abdomen not distended and no abdominal edema Percussion/Palpation: + abdomen tender (RUQ); no guarding and abdomen not rigid Musculoskeletal: no cyanosis or clubbing, extremities motor strength 5/5 Skin: no rashes, warm and dry Neurologic: PERRL, EOMI, accommodation nl, no face palsy, no dysarthria Psychiatric: Orientation: alert and oriented x 3 Genitourinary: no CVA tenderness Lymphatic: no lymphedema Results & Data Results & Data ([facility]) Vital Signs (Past 12 Hours) Vital Signs Temp Pulse Pulse Pulse Resp BP Pulse Ox 08/13/20 08:00 36.8 C 76 18 115/62 97 08/13/20 07:27 76 18 96 08/13/20 07:00 74 08/13/20 03:23 36.4 C L 80 18 148/61 H 96 08/13/20 02:05 79 18 92 08/13/20 00:17 36.6 C 79 18 122/74 93 08/12/20 22:40 81 18 92 Laboratory Results 08/13/20 08/13/20 08/13/20 Range/Units 07:46 07:29 07:29 WBC 5.22 (4.8-10.8) K/uL RBC 4.39 (4.2-5.4) M/uL Hgb 11.3 L (12.0-16.0) g/dL Hct 35.5 L (37-47) % MCV 80.9 (80-100) fL MCH 25.7 (25-34) pg MCHC 31.8 L (32-36) g/dL RDW Std Deviation 52.6 H (36.4-46.3) fL RDW Coeff of Shyla 17.5 H (11.5-14.5) % Plt Count 326 (130-400) K/uL MPV 9.9 (7.4-10.4) fL Immature Gran % (Auto) 0.2 % Neut % (Auto) 70.6 % Lymph % (Auto) 14.8 % [place] % (Auto) 9.2 % Eos % (Auto) 4.8 % Baso % (Auto) 0.4 % Neut # (Auto) 3.69 (1.4-6.5) K/uL Lymph # (Auto) 0.77 L (1.2-3.4) K/uL [place] # (Auto) 0.48 (0.11-0.59) K/uL Eos # (Auto) 0.25 (0-0.5) K/uL Baso # (Auto) 0.02 (0-0.2) K/uL Immature Gran # (Auto) 0.01 (0.00-0.02) K/uL Sodium (136-145) mmol/L Potassium (3.5-5.1) mmol/L Chloride (98-107) mmol/L Carbon Dioxide (21-32) mmol/L Anion Gap (3-11) BUN (7-18) mg/dl Creatinine (0.6-1.2) mg/dl Est Cr Clr Drug Dosing ml/min Est GFR ( Amer) Est GFR (Non-Af Amer) BUN/Creatinine Ratio (10-20) Glucose (70-99) mg/dl POC Glucose 233 H (70-99) mg/dl Calcium (8.5-10.1) mg/dl Phosphorus (2.5-4.9) mg/dl Magnesium (1.8-2.4) mg/dl Procalcitonin (0-0.5) ng/ml Specimen Hemolysis Vancomycin Trough 13.4 (See Comment) mcg/ml 08/13/20 08/13/20 08/12/20 Range/Units 07:29 03:26 20:13 WBC (4.8-10.8) K/uL RBC (4.2-5.4) M/uL Hgb (12.0-16.0) g/dL Hct (37-47) % MCV (80-100) fL MCH (25-34) pg MCHC (32-36) g/dL RDW Std Deviation (36.4-46.3) fL RDW Coeff of Shyla (11.5-14.5) % Plt Count (130-400) K/uL MPV (7.4-10.4) fL Immature Gran % (Auto) % Neut % (Auto) % Lymph % (Auto) % [place] % (Auto) % Eos % (Auto) % Baso % (Auto) % Neut # (Auto) (1.4-6.5) K/uL Lymph # (Auto) (1.2-3.4) K/uL [place] # (Auto) (0.11-0.59) K/uL Eos # (Auto) (0-0.5) K/uL Baso # (Auto) (0-0.2) K/uL Immature Gran # (Auto) (0.00-0.02) K/uL Sodium 135 L (136-145) mmol/L Potassium 4.3 (3.5-5.1) mmol/L Chloride 105 (98-107) mmol/L Carbon Dioxide 25 (21-32) mmol/L Anion Gap 6.0 (3-11) BUN 19 H (7-18) mg/dl Creatinine 0.68 (0.6-1.2) mg/dl Est Cr Clr Drug Dosing 107.9 ml/min Est GFR ( Amer) 107.9 Est GFR (Non-Af Amer) 93.1 BUN/Creatinine Ratio 27.4 H (10-20) Glucose 209 H (70-99) mg/dl POC Glucose 164 H 78 (70-99) mg/dl Calcium 8.7 (8.5-10.1) mg/dl Phosphorus 2.5 (2.5-4.9) mg/dl Magnesium 2.3 (1.8-2.4) mg/dl Procalcitonin (0-0.5) ng/ml Specimen Hemolysis Vancomycin Trough (See Comment) mcg/ml 08/12/20 08/12/20 08/12/20 Range/Units 16:14 12:27 11:44 WBC (4.8-10.8) K/uL RBC (4.2-5.4) M/uL Hgb (12.0-16.0) g/dL Hct (37-47) % MCV (80-100) fL MCH (25-34) pg MCHC (32-36) g/dL RDW Std Deviation (36.4-46.3) fL RDW Coeff of Shyla (11.5-14.5) % Plt Count (130-400) K/uL MPV (7.4-10.4) fL Immature Gran % (Auto) % Neut % (Auto) % Lymph % (Auto) % [place] % (Auto) % Eos % (Auto) % Baso % (Auto) % Neut # (Auto) (1.4-6.5) K/uL Lymph # (Auto) (1.2-3.4) K/uL [place] # (Auto) (0.11-0.59) K/uL Eos # (Auto) (0-0.5) K/uL Baso # (Auto) (0-0.2) K/uL Immature Gran # (Auto) (0.00-0.02) K/uL Sodium (136-145) mmol/L Potassium (3.5-5.1) mmol/L Chloride (98-107) mmol/L Carbon Dioxide (21-32) mmol/L Anion Gap (3-11) BUN (7-18) mg/dl Creatinine (0.6-1.2) mg/dl Est Cr Clr Drug Dosing ml/min Est GFR ( Amer) Est GFR (Non-Af Amer) BUN/Creatinine Ratio (10-20) Glucose (70-99) mg/dl POC Glucose 136 H 190 H (70-99) mg/dl Calcium (8.5-10.1) mg/dl Phosphorus (2.5-4.9) mg/dl Magnesium (1.8-2.4) mg/dl Procalcitonin 1.20 H (0-0.5) ng/ml Specimen Hemolysis Vancomycin Trough (See Comment) mcg/ml 08/12/20 Range/Units 07:40 WBC (4.8-10.8) K/uL RBC (4.2-5.4) M/uL Hgb (12.0-16.0) g/dL Hct (37-47) % MCV (80-100) fL MCH (25-34) pg MCHC (32-36) g/dL RDW Std Deviation (36.4-46.3) fL RDW Coeff of Shyla (11.5-14.5) % Plt Count (130-400) K/uL MPV (7.4-10.4) fL Immature Gran % (Auto) % Neut % (Auto) % Lymph % (Auto) % [place] % (Auto) % Eos % (Auto) % Baso % (Auto) % Neut # (Auto) (1.4-6.5) K/uL Lymph # (Auto) (1.2-3.4) K/uL [place] # (Auto) (0.11-0.59) K/uL Eos # (Auto) (0-0.5) K/uL Baso # (Auto) (0-0.2) K/uL Immature Gran # (Auto) (0.00-0.02) K/uL Sodium 137 (136-145) mmol/L Potassium 4.8 (3.5-5.1) mmol/L Chloride 105 (98-107) mmol/L Carbon Dioxide 26 (21-32) mmol/L Anion Gap 5.0 (3-11) BUN 27 H (7-18) mg/dl Creatinine 0.79 (0.6-1.2) mg/dl Est Cr Clr Drug Dosing 92.9 ml/min Est GFR ( Amer) 92.3 Est GFR (Non-Af Amer) 79.7 BUN/Creatinine Ratio 33.8 H (10-20) Glucose 147 H (70-99) mg/dl POC Glucose (70-99) mg/dl Calcium 8.7 (8.5-10.1) mg/dl Phosphorus 2.8 (2.5-4.9) mg/dl Magnesium 2.5 H (1.8-2.4) mg/dl Procalcitonin (0-0.5) ng/ml Specimen Hemolysis Vancomycin Trough (See Comment) mcg/ml Medications Administered Current Inpatient Medications Acetaminophen (Acetaminophen 325 Mg Tab) 650 mg PO Q4H PRN PRN Reason: Pain or Fever Stop: 09/09/20 21:17 Last Admin: 08/13/20 03:32 Dose: 650 mg Documented by: Albuterol (Albuterol Hfa 8 Gm Inhaler) 1 puffs INH QIDR PRN PRN Reason: Shortness Of Breath Or Wheezing Stop: 09/10/20 00:07 Last Admin: 08/11/20 05:36 Dose: 1 puffs Documented by: Albuterol (Albut/Ipratrop 3mg/0.5mg Neb 3 Ml Vial) 3 ml NEB QIDR PRN PRN Reason: Shortness Of Breath Or Wheezing Stop: 09/09/20 21:17 Amlodipine Besylate (Amlodipine Besylate 5 Mg Tab) 5 mg PO QAM [facility] Stop: 09/10/20 08:59 Last Admin: 08/12/20 08:53 Dose: 5 mg Documented by: Ascorbic Acid (Ascorbic Acid 500 Mg Tab) 500 mg PO DAILY [facility] Stop: 09/10/20 08:59 Last Admin: 08/12/20 08:53 Dose: 500 mg Documented by: Aspirin (Aspirin 81 Mg Ectab) 81 mg PO DAILY [facility] Stop: 09/10/20 08:59 Last Admin: 08/12/20 08:53 Dose: 81 mg Documented by: Baclofen (Baclofen 20 Mg Tab) 20 mg PO BID [facility] Stop: 09/09/20 21:17 Last Admin: 08/12/20 21:28 Dose: 20 mg Documented by: Buspirone HCl (Buspirone 5 Mg Tab) 5 mg PO BID [facility] Stop: 09/09/20 21:17 Last Admin: 08/12/20 21:28 Dose: 5 mg Documented by: Colestipol HCl (Colestipol Hcl 1 Gm Tab) 1 gm PO BID@1000,2200 [facility] Stop: 09/09/20 21:59 Last Admin: 08/12/20 22:20 Dose: 1 gm Documented by: Dextrose (Dextrose 50% 50 Ml Syringe) 25 - 50 ml IV UD PRN; Protocol PRN Reason: Hypoglycemia Protocol Stop: 09/09/20 21:17 Ferrous Gluconate (Ferrous Gluconate 324 Mg Tab) 324 mg PO DAILY [facility] Stop: 09/10/20 08:59 Last Admin: 08/12/20 08:52 Dose: 324 mg Documented by: Fish Oil ([place]-3 (Purified Fish Oil) 1 Gm Cap) 1 gm PO DAILY [facility] Stop: 09/10/20 08:59 Last Admin: 08/12/20 08:52 Dose: 1 gm Documented by: Fluticasone Propionate (Fluticasone Propionate Na Spr 16 Gm Btl) 2 sprays MIRNA DAILY [facility] Stop: 09/10/20 08:59 Last Admin: 08/12/20 08:51 Dose: 2 sprays Documented by: Gabapentin (Gabapentin 300 Mg Cap) 600 mg PO BID [facility] Stop: 09/09/20 21:17 Last Admin: 08/12/20 21:27 Dose: 600 mg Documented by: Glucagon (Glucagon For Inj 1 Mg Vial) 1 mg SQ UD PRN; Protocol PRN Reason: Hypoglycemia Protocol Stop: 09/09/20 21:17 Glucose (Glucose 10 Tabs/Tube) 4 - 8 tabs PO UD PRN; Protocol PRN Reason: Hypoglycemia Protocol Stop: 09/09/20 21:17 Glucose (Glucose 40% Gel 15 Gm Tube) 15 - 30 gm PO UD PRN; Protocol PRN Reason: Hypoglycemia Protocol Stop: 09/09/20 21:17 Guaifenesin (Guaifenesin 600 Mg Tabcr) 600 mg PO Q12 [facility] Stop: 09/10/20 20:59 Last Admin: 08/12/20 21:28 Dose: 600 mg Documented by: Hydroxychloroquine Sulfate (Hydroxychloroquine Sulfate 200 Mg Tab) 400 mg PO QAM [facility] Stop: 09/10/20 08:59 Last Admin: 08/12/20 08:53 Dose: 400 mg Documented by: Vancomycin HCl 1,250 mg/ (Sodium Chloride) 275 mls @ 200 mls/hr IV Q12H [facility] Stop: 08/19/20 07:59 Last Infusion: 08/12/20 21:38 Dose: Infused Documented by: Meropenem 500 mg/ Syringe 10 mls @ 2 mls/min IV Q6H [facility]; Protocol Stop: 08/19/20 03:59 Last Admin: 08/13/20 03:27 Dose: 2 mls/min Documented by: Furosemide 20 mg/ Syringe 2 mls @ 4 mls/min IV DAILY [facility] Stop: 09/11/20 12:44 Last Admin: 08/12/20 12:55 Dose: 4 mls/min Documented by: Insulin Aspart (Insulin Aspart 100 Units/Ml 3 Ml Pen) 0 units SC ACHS [facility] Stop: 09/09/20 21:17 Last Admin: 08/12/20 21:33 Dose: Not Given Documented by: Insulin Glargine (Insulin Glargine Solostar 100 Units/Ml 3 Ml Pen) 25 units SC BID [facility] Stop: 08/13/20 12:00 Last Admin: 08/12/20 08:47 Dose: 25 units Documented by: Insulin Glargine (Insulin Glargine Solostar 100 Units/Ml 3 Ml Pen) 20 units SC HS [facility] Stop: 09/12/20 20:59 Insulin Glargine (Insulin Glargine Solostar 100 Units/Ml 3 Ml Pen) 25 units SC DAILY [facility] Stop: 09/13/20 08:59 Ipratropium [place] (Ipratropium [place] Hfa Inhaler) 1 puffs INH QIDR PRN PRN Reason: Shortness Of Breath Or Wheezing Stop: 09/10/20 00:06 Last Admin: 08/11/20 05:36 Dose: 1 puffs Documented by: Lactobacillus Acidoph/Casei/[place]ham[place] (Advanced Probiotic 1250 Mg Capsule) 2 cap PO BID [facility] Stop: 09/09/20 21:44 Last Admin: 08/12/20 21:30 Dose: 2 cap Documented by: Levothyroxine Sodium (Levothyroxine Sodium 175 Mcg Tablet) 175 mcg PO DAILYBB [facility] Stop: 09/10/20 06:29 Last Admin: 08/13/20 06:26 Dose: 175 mcg Documented by: Lidocaine (Lidocaine 5% 1 Patch) 1 patch TD QAM [facility] Stop: 09/11/20 12:29 Last Admin: 08/12/20 12:55 Dose: 1 patch Documented by: Lidocaine (Lidocaine 5% 1 Patch) 1 patch TD QAM [facility] Stop: 09/11/20 12:29 Last Admin: 08/12/20 12:55 Dose: 1 patch Documented by: Lisinopril (Lisinopril 20 Mg Tab) 20 mg PO QAM [facility] Stop: 09/10/20 08:59 Last Admin: 08/12/20 08:52 Dose: 20 mg Documented by: Loperamide HCl (Loperamide Hcl 2 Mg Cap) 2 mg PO QAM [facility] Stop: 09/10/20 08:59 Last Admin: 08/12/20 08:06 Dose: 2 mg Documented by: Lorazepam (Lorazepam 0.5 Mg Tab) 0.5 mg PO Q8H PRN PRN Reason: Anxiety Stop: 09/09/20 21:17 Last Admin: 08/12/20 21:25 Dose: 0.5 mg Documented by: Magnesium Oxide (Magnesium Oxide 400 Mg Tab) 400 mg PO DAILY [facility] Stop: 09/10/20 08:59 Last Admin: 08/12/20 08:53 Dose: 400 mg Documented by: Miscellaneous (Armodafinil!Order Awaiting Action) 1 ea N/A QS [facility] Stop: 09/10/20 00:00 Last Admin: 08/12/20 22:46 Dose: Not Given Documented by: Miscellaneous (Carbohydrates For Hypoglycemia ) 15 - 30 gm PO UD PRN PRN Reason: Hypoglycemia Protocol Stop: 09/09/20 21:17 Miscellaneous (Remove Lidoderm Patch) 1 ea N/A DAILY@2099 [facility] Stop: 09/11/20 20:59 Last Admin: 08/12/20 21:29 Dose: 1 ea Documented by: Miscellaneous (Remove Lidoderm Patch) 1 ea N/A DAILY@2100 [facility] Stop: 09/11/20 20:59 Last Admin: 08/12/20 21:29 Dose: 1 ea Documented by: Miscellaneous Information (Pharmacy Glycemic Mgmt Consult) 1 ea N/A UD PRN PRN Reason: Consult Stop: 09/09/20 21:28 Miscellaneous Information (Meropenem Consult Acitve) 1 ea N/A UD PRN PRN Reason: Consult Stop: 09/10/20 14:21 Miscellaneous Information (Vancomycin Consult Active) 1 ea N/A UD PRN PRN Reason: Consult Stop: 09/10/20 19:13 Pantoprazole Sodium (Pantoprazole 40 Mg Tab) 40 mg PO BID [facility] Stop: 09/09/20 21:44 Last Admin: 08/12/20 21:30 Dose: 40 mg Documented by: Pilocarpine HCl (Pilocarpine Hcl 5 Mg Tablet) 15 mg PO TID [facility] Stop: 09/09/20 21:17 Last Admin: 08/12/20 21:26 Dose: 15 mg Documented by: Primidone (Primidone 50 Mg Tab) 50 mg PO HS [facility] Stop: 09/09/20 21:17 Last Admin: 08/12/20 21:26 Dose: 50 mg Documented by: Prochlorperazine (Prochlorperazine Maleate 10 Mg Tab) 10 mg PO Q8H PRN PRN Reason: Dizziness Stop: 09/09/20 21:17 Promethazine HCl (Promethazine Hcl 25 Mg Tab) 25 mg PO BID PRN PRN Reason: Nausea Stop: 09/09/20 21:17 Last Admin: 08/10/20 22:16 Dose: 25 mg Documented by: Rosuvastatin Calcium (Rosuvastatin Calcium 20 Mg Tab) 20 mg PO QAM [facility] Stop: 09/10/20 08:59 Last Admin: 08/12/20 08:53 Dose: 20 mg Documented by: Sertraline HCl (Sertraline Hcl 100 Mg Tablet) 100 mg PO [facility] Stop: 09/09/20 21:17 Last Admin: 08/12/20 21:27 Dose: 100 mg Documented by: Simethicone (Simethicone 80 Mg Chew) 80 mg PO Q6H PRN PRN Reason: Gi Upset Stop: 09/09/20 21:36 Simethicone (Simethicone 80 Mg Chew) [facility] [place] Stop: 09/10/20 08:59 Last Admin: 08/12/20 08:06 Dose: 120 mg Documented by: Sucralfate (Sucralfate 1 Gm/10 Ml Udc) 1 gm PO QID [facility] Stop: 09/09/20 21:17 Last Admin: 08/12/20 21:26 Dose: 1 gm Documented by: Tramadol HCl (Tramadol Hcl 50 Mg Tablet) 50 mg PO Q6H PRN PRN Reason: Pain Stop: 09/09/20 21:17 Last Admin: 08/12/20 18:44 Dose: 50 mg Documented by:
--- NOTE | 2020-08-13 08:41 | Pharmacy Report ---
Glycemic Control Progress Note - Date of Service August 13, 2020 - Scope Glycemic Pharmacist consulted for glycemic control to write orders per [facility] inpatient glycemic control protocol. - Objective Accuchecks BSG(last 24 hours):: 08/12/20 08/12/20 08/12/20 07:40 11:44 16:14 Glucose 147 H POC Glucose 190 H 136 H 08/12/20 08/13/20 08/13/20 20:13 03:26 07:29 Glucose 209 H POC Glucose 78 164 H 08/13/20 07:46 Glucose POC Glucose 233 H HbA1c:: Hemoglobin A1c 6.6 % (4.5-5.6) H 08/11/20 07:31 - Recent Pertinent Medications The patient is currently receiving: * Basal insulin: Lantus 25 units SQ in the morning and 15 units in the evening * Correctional Insulin: Novolog Correction per scale ACHS Goal Range: Low 110 mg/dL - High 140 mg/dL Correction Factor: 20 mg/dL/unit * Prandial insulin: Per carb ratio of 1 unit per 7 grams CHO consumed - Outpatient Anti-Diabetic Meds Novolog pump with basal rate of 55.7 units/day plus CF of 40 CR of 6-7 - Assessment & Plan ASSESSMENT: * See progress note from 08/11/20 for more background info, in short: * Pt receiving SQ basal bolus insulin regimen for hyperglycemia secondary to baseline DM (outpatient regimen on hold). Patient currently on vancomycin and meropenem for pulmonary/ bacteremia * Patient is currently receiving an average of 72 units of insulin per day * 40 units of basal insulin * 32 units of prandial/correctional insulin * BSGs ranging 78 - 190 mg/dl over the past 24hrs * Changes needed to insulin regimen: * AM Fasting BSG = 233 mg/dl. This is above goal range for patient based on inpatient targets and co-morbidities. The patient only received 40 units of basal yesterday compared to goal of 50 units. BSGs were trending downwards yesterday due to too aggressive carbohydrate ratio. Will resume with 50 units of basal/day. * Post-prandial BSGs were trending down so CF/CR loosened. * Total daily dose = 60-70 units. Reduced insulin PLAN FOR INPATIENT GLYCEMIC CONTROL: * Continuing Lantus 25 units SQ BID * Continuing correction factor of 20 mg/dl/unit * Continuing carb ratio of 1 unit per 7 grams CHO consumed * Continuing goal range of Low 110 mg/dL - High 140 mg/dL RECOMMENDATIONS FOR DISCHARGE: * Continue current outpatient regimen as HbA1C indicates excellent control. Per CDE note, agree with reduction in basal rates. * Resume insulin pump about 8 hours after last dose of Lantus (e.g. if given in AM then resume at dinnertime; if given in PM then resume when wake up). Thank you.
[2020-08-13] MEDS: INSULIN ASPART 100 UNITS/ML 3 ML PEN SC SCH ×4 (08:42→20:53)
[2020-08-13] MEDS: VANCOMYCIN HCL 1,250 MG in SODIUM CHLORIDE 0.9% 250 ML IV SCH ×2 (09:09→19:51)
[2020-08-13] MEDS: SUCRALFATE 1 GM/10 ML UDC PO SCH ×4 (09:17→20:49)
[2020-08-13] MEDS: LIDOCAINE 5% 1 PATCH TD SCH ×2 (09:17→09:18)
[2020-08-13] MEDS: ROSUVASTATIN CALCIUM 20 MG TAB PO SCH (09:18)
[2020-08-13] MEDS: FUROSEMIDE 20 MG in SYRINGE 0 ML IV SCH (09:18)
[2020-08-13] MEDS: ADVANCED PROBIOTIC 1250 MG CAPSULE PO SCH ×2 (09:18→20:49)
[2020-08-13] MEDS: PANTOprazole 40 MG TAB PO SCH ×2 (09:18→20:49)
[2020-08-13] MEDS: PILOCARPINE HCL 5 MG TABLET PO SCH ×3 (09:19→20:49)
[2020-08-13] MEDS: busPIRone 5 MG TAB PO SCH ×2 (09:19→20:49)
[2020-08-13] MEDS: LOPERAMIDE HCL 2 MG CAP PO SCH (09:19)
[2020-08-13] MEDS: HYDROXYCHLOROQUINE SULFATE 200 MG TAB PO SCH (09:20)
[2020-08-13] MEDS: lisinopril 20 MG TAB PO SCH (09:20)
[2020-08-13] MEDS: ASPIRIN 81 MG ECTAB PO SCH (09:20)
[2020-08-13] MEDS: BACLOFEN 20 MG TAB PO SCH ×2 (09:20→20:49)
[2020-08-13] MEDS: guaiFENesin 600 MG TABCR PO SCH ×2 (09:20→20:49)
[2020-08-13] MEDS: FLUTICASONE PROPIONATE NA SPR 16 GM BTL NAE SCH (09:21)
[2020-08-13] MEDS: ASCORBIC ACID 500 MG TAB PO SCH (09:21)
[2020-08-13] MEDS: GABAPENTIN 300 MG CAP PO SCH ×2 (09:21→20:49)
[2020-08-13] MEDS: amLODIPine BESYLATE 5 MG TAB PO SCH (09:21)
[2020-08-13] MEDS: OMEGA-3 (PURIFIED FISH OIL) 1 GM CAP PO SCH (09:21)
[2020-08-13] MEDS: FERROUS GLUCONATE 324 MG TAB PO SCH (09:21)
[2020-08-13] MEDS: MAGNESIUM OXIDE 400 MG TAB PO SCH (09:21)
[2020-08-13] MEDS: INSULIN GLARGINE SOLOSTAR 100 UNITS/ML 3 ML PEN SC SCH ×2 (09:22→20:53)
[2020-08-13] MEDS: LORazepam 0.5 MG TAB PO PRN ×2 (10:29→20:49)
[2020-08-13] MEDS: SIMETHICONE 80 MG CHEW PO SCH (10:29)
[2020-08-13] MEDS: COLESTIPOL HCL 1 GM TAB PO SCH ×2 (11:23→21:55)
[2020-08-13] MEDS ORDERED: MELATONIN 3 MG TAB PO PRN (11:37)
[2020-08-13] MEDS ORDERED: LIDOCAINE HCL 1% 20 ML VIAL ONE (13:57)
[2020-08-13] MEDS ORDERED: LIDOCAINE HCL 1% 20 ML VIAL INFIL ONE (13:57)
--- NOTE | 2020-08-13 15:08 | Procedure Note ---
Procedure Note Date of Service August 13, 2020 Note Procedure: Diagnostic and/or therapeutic right sided ultrasound-guided catheter thoracentesis Clinical Business Analyst: Dr. Kamar Price Indication: Pleural effusion Consent: Signed by patient and verified with timeout prior to procedure Anesthesia: 8 mL's of 1% lidocaine without epinephrine given locally Procedure: Consent was verified and timeout performed. Appropriate imaging studies were reviewed prior to the procedure. Patient was placed in a seated position and limited thoracic ultrasound was performed of the right lateral chest. See separate imaging. The site appropriate for thoracentesis was selected. The skin was prepped and draped in normal sterile fashion. Lidocaine was used for local analgesia. Fluid was aspirated via the finder needle. A small skin jemima was made with the scalpel and the catheter over the needle apparatus was advanced over the rib into the pleural space. Using the syringe one-way valve system, a total of 3 mL's of yellow fluid was removed. Procedure was terminated due to inability to aspirate further fluid. The catheter was removed and observed to be intact. A sterile dressing was applied. Post procedure chest x- ray was ordered. Numerous attempts were made at the thoracentesis and unfortunately very minimal fluid was able to be aspirated. Procedure was aborted. Ultrasound does demonstrate a moderate sized free-flowing effusion. Postprocedure chest x-ray is ordered and pending. Coding CPT Codes Pulmonary/Thoracic - Pulmonary and Thoracic: 41395 Pleural drainage w/imaging ([id number]) [facility] [place] Codes (Charges) Pulmonary/Thoracic Procedure 2: Pulmonary and Thoracic: 73578 Pleural drainage w/imaging
--- NOTE | 2020-08-13 15:14 | Pulmonology Progress Note ---
Date of Service August 13, 2020 Assessment & Plan (1) Pleural effusion on right: --Acute hypoxic respiratory failure Likely related to diastolic heart failure and underlying right pleural effusion. Etiology of pleural effusion is unclear. Pleural fluid cultures are negative to date. Cytology was negative. Procalcitonin evaluated yesterday which is elevated to 1.2. Unfortunately, I was unable to successfully aspirate fluid on today's thoracentesis attempt. Procedure was aborted. Will reconsider tomorrow. Continue with low-dose IV Lasix. Continue with broad-spectrum antibiotics. Repeat chest x-ray today is pending. --ROJELIO CPAP nightly and as needed shortness of breath On armodafinil at home --History of scleroderma and Sjogrens Receiving photopheresis. On hydroxychloroquine and pilocarpine as well. No pulmonary hypertension noted on the echo. I offered her condolences for the loss of her . (2) Acute respiratory failure with hypoxia: (3) ROJELIO (obstructive sleep apnea): (4) Scleroderma: (5) Grief reaction: Admission and Anticipated Discharge Date Admission Date: August 10, 2020 Subjective Patient feeling slightly less short of breath today. She continues to have twinges of pain in her bilateral flanks. She has shortness of breath on mild to moderate exertion. Still requiring 4 L of oxygen. Review of Systems Review of Systems: All systems reviewed & are unremarkable except as noted in HPI & below Physical Exam Physical Exam: Constitutional: No acute distress HEENT: EOMI, PERRLA Respiratory system: Decreased air entry on the right side, positive crackles bilateral lower lobes, no wheeze, no rhonchi CVS: S1-S2 positive, no murmurs or gallops, P2, right-sided permacath Abdomen: Soft, nondistended, positive bowel sounds x4, obese Extremities: +2 pulses bilaterally radialis/ dorsalis pedis, no cyanosis, no edema Neuro: Awake alert oriented x3 Psych: Emotional and depressed G/U: No Coe Skin: no rashes, warm and dry Lymphatic: no cervical or axillary lymphadenopathy Results & Data Results & Data ([facility]) Vital Signs (Past 12 Hours) Vital Signs Temp Pulse Pulse Pulse Resp BP Pulse Ox 08/13/20 11:57 98.6 F 84 16 121/60 98 08/13/20 08:00 98.2 F 76 18 115/62 97 01/26/21 07:27 76 18 96 08/13/20 07:00 74 08/13/20 03:23 97.5 F L 80 18 148/61 H 96 I reviewed the vital signs, labs and chest imaging. PG Care Time/CCT Total # of Minutes Spent Total Time Spent with Patient: Total time spent is greater than 50% in coordination of care (as documented) at patient's floor/unit and/or counseling patient: Coding Level of Care Code 40786 Subseq Hosp Care Lvl 3 Diagnoses Pleural effusion on right J90 Acute respiratory failure with hypoxia J96.01 ROJELIO (obstructive sleep apnea) G47.33 Scleroderma M34.9 Grief reaction F43.21
--- NOTE | 2020-08-13 15:44 | XRay Report ---
XR chest 1V portable CLINICAL HISTORY: post thoracentesis COMPARISON STUDY: 08/12/2020 FINDINGS: The cardiac and mediastinal contours remain stable. There is a right-sided dual-lumen centr al venous catheter with its tip projected over the atriocaval junction. There is a persistent moderat e right pleural effusion with associated right lung airspace opacities. There is no pneumothorax stat us post reported thoracentesis. There is persistent mild central vascular prominence. There are minor left basilar atelectatic changes.[ IMPRESSION: No evidence of pneumothorax status post reported thoracentesis. ACT 112: Negative or not required by law. Electronically signed by: Soto Mcghee M.D. 08/13/2020 3:43 PM
[2020-08-13] MEDS: PROMETHAZINE HCL 25 MG TAB PO PRN (18:37)
[2020-08-13] MEDS: PRIMIDONE 50 MG TAB PO SCH (20:49)
[2020-08-13] MEDS: SERTRALINE HCL 100 MG TABLET PO SCH (20:49)
[2020-08-13] MEDS ORDERED: INSULIN GLARGINE SOLOSTAR 100 UNITS/ML 3 ML PEN SC SCH (21:00)
[2020-08-14] MEDS: MEROPENEM 500 MG in SYRINGE 0 ML IV SCH ×4 (04:06→22:36)
[2020-08-14] MEDS: LEVOTHYROXINE SODIUM 175 MCG TABLET PO SCH (06:06)
[2020-08-14 06:30] LABS: Hematocrit (blood only) 35.3 % (37-47); Hemoglobin 11.4 g/dL (12.0-16.0); Mean Corpuscular Hemoglobin 26.1 pg (25-34); Mean Corpuscular Hgb Conc 32.3 g/dL (32-36); Platelet Count 349 K/uL (130-400); RDW Coefficient of Variation 17.1 % (11.5-14.5); RDW Standard Deviation 51.7 fL (36.4-46.3); Red Blood Count 4.36 M/uL (4.2-5.4); White Blood Count 6.24 K/uL (4.8-10.8)
[2020-08-14 07:01] LABS: Calcium 8.5 mg/dl (8.5-10.1); Creatinine Clr Calc Pharmacy 132.7 ml/min; Est GFR (African American) 115.7; Est GFR (Non-African American) 99.8; Potassium 3.7 mmol/L (3.5-5.1)
[2020-08-14] MEDS: LOPERAMIDE HCL 2 MG CAP PO SCH (07:52)
[2020-08-14] MEDS: SUCRALFATE 1 GM/10 ML UDC PO SCH ×4 (08:43→22:03)
[2020-08-14] MEDS: FUROSEMIDE 20 MG in SYRINGE 0 ML IV SCH (08:44)
[2020-08-14] MEDS: busPIRone 5 MG TAB PO SCH ×2 (08:45→22:03)
[2020-08-14] MEDS: ASPIRIN 81 MG ECTAB PO SCH (08:46)
[2020-08-14] MEDS: ROSUVASTATIN CALCIUM 20 MG TAB PO SCH (08:46)
[2020-08-14] MEDS: FLUTICASONE PROPIONATE NA SPR 16 GM BTL NAE SCH (08:47)
[2020-08-14] MEDS: INSULIN GLARGINE SOLOSTAR 100 UNITS/ML 3 ML PEN SC SCH ×2 (08:47→22:03)
[2020-08-14] MEDS: FERROUS GLUCONATE 324 MG TAB PO SCH (08:47)
[2020-08-14] MEDS: LIDOCAINE 5% 1 PATCH TD SCH ×2 (08:48→08:49)
[2020-08-14] MEDS: BACLOFEN 20 MG TAB PO SCH ×2 (08:50→22:04)
[2020-08-14] MEDS: MAGNESIUM OXIDE 400 MG TAB PO SCH (08:51)
[2020-08-14] MEDS: guaiFENesin 600 MG TABCR PO SCH ×2 (08:51→22:05)
[2020-08-14] MEDS: GABAPENTIN 300 MG CAP PO SCH ×2 (08:53→22:05)
[2020-08-14] MEDS: PANTOprazole 40 MG TAB PO SCH ×2 (08:53→22:06)
[2020-08-14] MEDS: lisinopril 20 MG TAB PO SCH (08:54)
[2020-08-14] MEDS: ASCORBIC ACID 500 MG TAB PO SCH (08:54)
[2020-08-14] MEDS: HYDROXYCHLOROQUINE SULFATE 200 MG TAB PO SCH (08:54)
[2020-08-14] MEDS: amLODIPine BESYLATE 5 MG TAB PO SCH (08:54)
[2020-08-14] MEDS: OMEGA-3 (PURIFIED FISH OIL) 1 GM CAP PO SCH (08:54)
[2020-08-14] MEDS: ADVANCED PROBIOTIC 1250 MG CAPSULE PO SCH ×2 (08:54→22:06)
[2020-08-14] MEDS: COLESTIPOL HCL 1 GM TAB PO SCH ×2 (08:55→20:59)
[2020-08-14] MEDS: PILOCARPINE HCL 5 MG TABLET PO SCH ×3 (08:55→22:06)
[2020-08-14] MEDS ORDERED: LOPERAMIDE HCL 2 MG CAP PO SCH (09:00)
[2020-08-14] MEDS ORDERED: INSULIN GLARGINE SOLOSTAR 100 UNITS/ML 3 ML PEN SC SCH (09:00)
[2020-08-14] MEDS: INSULIN ASPART 100 UNITS/ML 3 ML PEN SC SCH ×4 (09:04→22:05)
[2020-08-14] MEDS: traMADol HCL 50 MG TABLET PO PRN ×2 (09:10→19:17)
[2020-08-14] MEDS: VANCOMYCIN HCL 1,250 MG in SODIUM CHLORIDE 0.9% 250 ML IV SCH ×2 (09:11→20:59)
[2020-08-14] MEDS: SIMETHICONE 80 MG CHEW PO SCH (10:05)
--- NOTE | 2020-08-14 11:39 | Pulmonology Progress Note ---
Date of Service August 14, 2020 Assessment & Plan (1) Pleural effusion on right: --Acute hypoxic respiratory failure Likely related to diastolic heart failure and underlying right pleural effusion. Etiology of pleural effusion is unclear. Pleural fluid cultures are negative to date. Cytology was negative. Procalcitonin is elevated. Recommend trending every 2 days. Will attempt thoracentesis later this afternoon. --ROJELIO CPAP nightly and as needed shortness of breath On armodafinil at home --History of scleroderma and Sjogrens Receiving photopheresis as an outpatient. On hydroxychloroquine and pilocarpine as well. No pulmonary hypertension noted on the echo. (2) Acute respiratory failure with hypoxia: (3) ROJELIO (obstructive sleep apnea): (4) Scleroderma: (5) Grief reaction: Admission and Anticipated Discharge Date Admission Date: August 10, 2020 Subjective No significant changes from yesterday. Continues to have bilateral lower extremity pain. Continues to feel short of breath with mild to moderate exertion. Required 4 L of oxygen to maintain saturations in the low 90s. Review of Systems Review of Systems: All systems reviewed & are unremarkable except as noted in HPI & below Physical Exam Physical Exam: Constitutional: No acute distress HEENT: EOMI, PERRLA Respiratory system: Decreased air entry on the right side, no wheeze, no rhonchi CVS: S1-S2 positive, no murmurs or gallops, P2, right-sided permacath Abdomen: Soft, nondistended, positive bowel sounds x4, obese Extremities: +2 pulses bilaterally radialis/ dorsalis pedis, no cyanosis, no edema Neuro: Awake alert oriented x3 Psych: Emotional and depressed G/U: No Coe Skin: no rashes, warm and dry Lymphatic: no cervical or axillary lymphadenopathy Results & Data Results & Data ([facility]) Vital Signs (Past 12 Hours) Vital Signs Temp Pulse Pulse Resp BP Pulse Ox 08/14/20 07:38 81 08/14/20 07:08 97.3 F L 71 22 142/64 H 92 08/14/20 03:27 98.4 F 80 19 133/67 93 vital signs, labs and imaging reviewed PG Care Time/CCT Total # of Minutes Spent Total Time Spent with Patient: Total time spent is greater than 50% in coordination of care (as documented) at patient's floor/unit and/or counseling patient: Coding Level of Care Code 78634 Subseq Hosp Care Lvl 2 Diagnoses Pleural effusion on right J90 Acute respiratory failure with hypoxia J96.01 ROJELOI (obstructive sleep apnea) G47.33 Scleroderma M34.9 Grief reaction F43.21
--- NOTE | 2020-08-14 11:59 | Pharmacy Report ---
Glycemic Control Progress Note - Date of Service August 14, 2020 - Scope Glycemic Pharmacist consulted for glycemic control to write orders per [facility] inpatient glycemic control protocol. - Objective Accuchecks BSG(last 24 hours):: 08/13/20 08/13/20 08/14/20 16:22 20:18 05:28 Glucose 82 POC Glucose 86 180 H 08/14/20 08/14/20 08/14/20 07:01 07:49 11:21 Glucose POC Glucose 109 H 140 H 230 H HbA1c:: Hemoglobin A1c 6.6 % (4.5-5.6) H 08/11/20 07:31 - Recent Pertinent Medications The patient is currently receiving: * Basal insulin: Lantus 25 units every 12 hours * Correctional Insulin: Novolog Correction per scale ACHS Goal Range: Low 110 mg/dL - High 140 mg/dL Correction Factor: 20 mg/dL/unit * Prandial insulin: Per carb ratio of 1 unit per 7 grams CHO consumed - Outpatient Anti-Diabetic Meds Novolog pump basal rate = 55 units/hr with CR of 6 or 7 and CF of 40 - Assessment & Plan ASSESSMENT: * See progress note from 08/11/19 for more background info, in short: * Pt receiving SQ basal bolus insulin regimen for hyperglycemia secondary to baseline DM (outpatient regimen on hold),stress/infection (meropenem and vancomycin). * Patient is currently receiving an average of 68 units of insulin per day * 50 units of basal insulin * 18 units of prandial/correctional insulin * BSGs ranging 86 - 233 mg/dl over the past 24hrs * Changes needed to insulin regimen: * AM Fasting BSG = 109 mg/dl. This is slightly goal range for patient based on inpatient targets and co-morbidities. Therefore Basal insulin will be reduced slightly. Lantus 25 units BID with 20 units ordered if BSG < 140 mg/dL. * Post-prandial BSGs trended downwards yesterday. Suspect CF too tight so loosen to 25 mg/dL/unit. Suspect CR is not enough but will hold off on tightening for right now. * Total daily dose = ~65 units. Reduced insulin doses. PLAN FOR INPATIENT GLYCEMIC CONTROL: * Continuing Lantus 25 units SQ BID (give 20 units if BSG < 140 mg/dL) * LOOSENING correction factor to 25 mg/dl/unit * Continuing carb ratio of 1 unit per 20 grams CHO consumed * Continuing goal range of Low 110 mg/dL - High 140 mg/dL RECOMMENDATIONS FOR DISCHARGE: * Continue current outpatient regimen as HbA1C indicates excellent control. Per CDE note, agree with reduction in basal rates. * Resume insulin pump about 8 hours after last dose of Lantus (e.g. if given in AM then resume at dinnertime; if given in PM then resume when wake up). Thank you.
[2020-08-14] MEDS: PROCHLORPERAZINE MALEATE 10 MG TAB PO PRN ×2 (12:30→14:35)
[2020-08-14] MEDS: LORazepam 0.5 MG TAB PO PRN (14:04)
--- NOTE | 2020-08-14 14:20 | Hospitalist Progress Note ---
Date of Service August 14, 2020 Assessment & Plan (1) Pleural effusion: (2) SOB (shortness of breath): Patient is 64-year-old female with a past medical history of Sjogren's syndrome, skeletal derma requiring extracorporeal photopheresis s/p endovascular AV fistula to right upper extremity, insulin-dependent diabetes mellitus type 1, hypothyroidism, depression and GERD presented to the ED with worsening shortness of breath and cough. Community acquired pneumonia -immunocompromised patient Acute on chronic hypoxic respiratory failure -bacterial pneumonia/possible acute diastolic heart failure Patient presented with worsening shortness of breath. At home she uses 2 L of nasal cannula at nighttime. Currently on 4 L of nasal cannula. Patient remains afebrile. White count is within normal limit. COVID-19 ruled out. proBNP of 243. Chest x-ray revealed moderate to large right-sided pleural effusion with diffuse right lung opacities. Pulmonary is on board. Patient underwent thoracentesis with 2 L of fluid removed. Currently cultures remain negative. Cytology remains negative as well. Plan for possible repeat thoracentesis later this afternoon. Bacteremia On admission blood cultures on 08/10 revealed 07/22 Coag neg staph not lugdunensis -likely contaminant Repeat blood cultures on 08/12 negative thus far. Transthoracic echo without any concerning vegetation. EF of greater than 70%. Currently patient remains on vancomycin and meropenem. SHONNA - resolved Currently on daily IV Lasix 20 mg. DM I Prior to admission patient was on insulin pump. Could not recall her pump rings on admission. Holding insulin pump during inpatient. Continue NovoLog sliding scale. Pharmacy on board for glycemic management. Scleroderma S/P right upper extremity AV fistula Patient usually gets photopheresis every 2 weeks. Was about 1-1/2-month ago. Could not make it due to passing away. Follows with Dr Sharla Fortune - Continue home meds HTN - hold lisinopril tonight Chronic Nausea/diarrhea/GERD- continue home meds Hyperthyroidism- Continue synthroid ROJELIO - continue CPAP with O2 HS Anxiety/Depression Continue sertraline, lorazepam Has been recently therefore she is more anxious and depressed. Psychiatry is on board. DVT Prophylaxis -SCDs for now Follows with Dr Jenni Sandy for routine care Admission and Anticipated Discharge Date Admission Date: August 10, 2020 Subjective Patient reports her primary complaint is diarrhea with roughly 5-15 daily bowel movements that is not new for her. Patient does use 2 L of nasal cannula at baseline nighttime at home, currently she remains on 4 L of nasal cannula. She does report that she has pain in the right lateral subcostal region. Denies any shortness of breath. Denies any abdominal pain or dysuria. Rest of the review of system is negative. Review of Systems Review of Systems: All systems reviewed & are unremarkable except as noted in HPI & below Physical Exam Physical Exam: General: A&Ox3. Distress due to pain HENT: NCAT, MMM, EOMI Eyes: PERRLA Neck: Supple, normal range of motion CVS: normal rate and rhythm Resp: b/l coarse breath sounds Abdomen: Soft, nondistended and nontender Extremities: Tenderness to palpation with bilateral lower extremities that is chronic as per the patient Neuro: No gross focal deficits identified Skin: warm and dry, no rashes/lesions/errythema MSK: normal ROM, no joint swelling/erythema Results & Data Results & Data ([facility]) Vital Signs (Past 12 Hours) Vital Signs Temp Pulse Pulse Resp BP Pulse Ox 08/14/20 11:30 36.8 C 74 20 124/59 L 95 08/14/20 07:38 81 08/14/20 07:08 36.3 C L 71 22 142/64 H 92 08/14/20 03:27 36.9 C 80 19 133/67 93
[2020-08-14] MEDS: PROMETHAZINE HCL 25 MG TAB PO PRN (16:24)
--- NOTE | 2020-08-14 17:06 | XRay Report ---
XR chest 1V portable HISTORY: 64 years-old Female S/P right thoracentesis r/o pneumothorax COMPARISON: Chest radiograph 08/13/2020 TECHNIQUE: Portable AP view of the chest FINDINGS: Right IJ dual-lumen hemodialysis catheter is again noted with distal tip terminating in the expected location of the right atrium. Cardiac silhouette is mildly enlarged. No pneumothorax. Pulmonary vascu lar congestion with moderately improved aeration of the lungs. Small to moderate right pleural effusi on has decreased in size. Persistent right lung base consolidation. Degenerative changes of the shoul ders and spine. IMPRESSION: 1. Decreased size of the right pleural effusion status post thoracentesis. No postprocedural pneumoth orax. 2. Cardiomegaly and pulmonary vascular congestion with decreased pulmonary edema. ACT 112: Negative or not required by law. The above report was generated using voice recognition software. It may contain grammatical, syntax o r spelling errors. Electronically signed by: Austyn Mccray M.D. 08/14/2020 5:05 PM
[2020-08-14 17:08] LABS: Glucose Pleural Fluid 178 mg/dl
[2020-08-14 17:13] LABS: LDH Pleural Fluid 249 U/L; Total Protein Pleural Fluid 3.8 g/dl
[2020-08-14 17:26] LABS: Appearance Pleural Fluid HAZY; Basophils, Fluid 0 %; Color Pleural Fluid YELLOW; Eosinophils, Fluid 4 %; Lymphocytes, Fluid 44 %; Mono,Macrophage,Mesothelial 19 %; Neutrophils, Fluid 33 %; RBC Pleural Fluid (A) < 3000 /uL; Source Pleural Fluid RIGHT LUNG; WBC Pleural Fluid (A) 1928 /uL
--- NOTE | 2020-08-14 17:30 | Procedure Note ---
Procedure Note Date of Service August 14, 2020 INDICATION: Persistent right-sided pleural fluid PROCEDURE: Right-sided thoracentesis DATE: 08/14/2020 TIME: 1600 PROVIDER: Guy matias PA-C CONSENT: Was obtained prior to the procedure by Dr. Price and placed on the chart PROCEDURE SUMMARY: Bedside ultra sound was performed to identify an appropriate puncture site. Images were saved to the [email or web address] system. A time out was performed. The patient was prepped and draped in a sterile manner using chlorhexidine scrub after the appropriate level was confirmed by ultrasound. 1% lidocaine was used to numb the region. A finder needle was then used under negative pressure to locate fluid and instill lidocaine into the p leural space. A small incision was made with a #10 scalpel. A needle with overlying catheter was advanced using negative pressure on the syringe until a pleural flash was obtained. The thoracentesis catheter was then threaded without difficulty and without any bleeding. The patient had 1700 mL of cloudy yellow fluid removed. The incision site was then covered with two Band-Aids with no evidence of bleeding. No immediate complications were noted during the procedure. Dr. Price and Dr. Guillen were contacted after the procedure with results. A post-procedure chest x-ray was completed and reviewed at bedside by this provider and no pneumothorax was identified. The patient tolerated the procedure well with no shortness of breath, no hypotension, no increase in heart rate, and no other acute symptoms. Coding CPT Codes Pulmonary/Thoracic - Pulmonary and Thoracic: 71654 Thoracentesis w imaging ([id number]) [facility] [place] Procedure Codes (Charges) Pulmonary/Thoracic Procedure 1: Pulmonary and Thoracic: 74029 Thoracentesis w imaging
[2020-08-14] MEDS: SERTRALINE HCL 100 MG TABLET PO SCH (22:06)
[2020-08-14] MEDS: PRIMIDONE 50 MG TAB PO SCH (22:06)
[2020-08-14] MEDS: ACETAMINOPHEN 325 MG TAB PO PRN (22:45)
[2020-08-15] MEDS: MEROPENEM 500 MG in SYRINGE 0 ML IV SCH ×3 (04:25→17:07)
[2020-08-15] MEDS: LEVOTHYROXINE SODIUM 175 MCG TABLET PO SCH (05:43)
[2020-08-15 05:57] LABS: Basophils # (auto) 0.02 K/uL (0-0.2); Basophils % (auto) 0.4 %; Eosinophils # (auto) 0.17 K/uL (0-0.5); Eosinophils % (auto) 3.1 %; Hematocrit (blood only) 36.5 % (37-47); Hemoglobin 11.6 g/dL (12.0-16.0); Immature Granulocytes # (auto) 0.01 K/uL (0.00-0.02); Immature Granulocytes % (auto) 0.2 %; Lymphocytes # (auto) 0.96 K/uL (1.2-3.4); Lymphocytes % (auto) 17.6 %; Mean Corpuscular Hemoglobin 25.7 pg (25-34); Mean Corpuscular Hgb Conc 31.8 g/dL (32-36); Mean Corpuscular Volume 80.8 fL (80-100); Mean Platelet Volume 10.2 fL (7.4-10.4); Monocytes # (auto) 0.67 K/uL (0.11-0.59); Monocytes % (auto) 12.3 %; Neutrophils # (auto) 3.61 K/uL (1.4-6.5); Neutrophils % (auto) 66.4 %; Platelet Count 360 K/uL (130-400); RDW Standard Deviation 50.7 fL (36.4-46.3); Red Blood Count 4.52 M/uL (4.2-5.4); White Blood Count 5.44 K/uL (4.8-10.8)
[2020-08-15 06:22] LABS: BUN Creatinine Ratio 29.8 (10-20); Calcium 8.5 mg/dl (8.5-10.1); Creatinine Clr Calc Pharmacy 140.3 ml/min; Est GFR (African American) 117.9; Est GFR (Non-African American) 101.7; Potassium 3.4 mmol/L (3.5-5.1)
[2020-08-15] MEDS: PROMETHAZINE HCL 25 MG TAB PO PRN (08:27)
[2020-08-15] MEDS: PANTOprazole 40 MG TAB PO SCH (08:28)
[2020-08-15] MEDS: PILOCARPINE HCL 5 MG TABLET PO SCH ×2 (08:28→13:57)
[2020-08-15] MEDS: BACLOFEN 20 MG TAB PO SCH (08:29)
[2020-08-15] MEDS: FERROUS GLUCONATE 324 MG TAB PO SCH (08:29)
[2020-08-15] MEDS: GABAPENTIN 300 MG CAP PO SCH (08:29)
[2020-08-15] MEDS: ADVANCED PROBIOTIC 1250 MG CAPSULE PO SCH (08:29)
[2020-08-15] MEDS: busPIRone 5 MG TAB PO SCH (08:29)
[2020-08-15] MEDS: guaiFENesin 600 MG TABCR PO SCH (08:29)
[2020-08-15] MEDS: ROSUVASTATIN CALCIUM 20 MG TAB PO SCH (08:30)
[2020-08-15] MEDS: lisinopril 20 MG TAB PO SCH (08:30)
[2020-08-15] MEDS: HYDROXYCHLOROQUINE SULFATE 200 MG TAB PO SCH (08:30)
[2020-08-15] MEDS: SIMETHICONE 80 MG CHEW PO SCH (08:30)
[2020-08-15] MEDS: MAGNESIUM OXIDE 400 MG TAB PO SCH (08:31)
[2020-08-15] MEDS: OMEGA-3 (PURIFIED FISH OIL) 1 GM CAP PO SCH (08:31)
[2020-08-15] MEDS: amLODIPine BESYLATE 5 MG TAB PO SCH (08:31)
[2020-08-15] MEDS: ASPIRIN 81 MG ECTAB PO SCH (08:32)
[2020-08-15] MEDS: SUCRALFATE 1 GM/10 ML UDC PO SCH ×3 (08:32→17:10)
[2020-08-15] MEDS: ASCORBIC ACID 500 MG TAB PO SCH (08:32)
[2020-08-15] MEDS: FLUTICASONE PROPIONATE NA SPR 16 GM BTL NAE SCH (08:35)
[2020-08-15] MEDS: LIDOCAINE 5% 1 PATCH TD SCH ×2 (08:36→09:20)
[2020-08-15] MEDS: INSULIN GLARGINE SOLOSTAR 100 UNITS/ML 3 ML PEN SC SCH (08:50)
[2020-08-15] MEDS: INSULIN ASPART 100 UNITS/ML 3 ML PEN SC SCH ×3 (08:50→17:37)
[2020-08-15] MEDS ORDERED: LOPERAMIDE HCL 2 MG CAP PO SCH (09:00)
[2020-08-15] MEDS: VANCOMYCIN HCL 1,250 MG in SODIUM CHLORIDE 0.9% 250 ML IV SCH (09:05)
[2020-08-15] MEDS: FUROSEMIDE 20 MG in SYRINGE 0 ML IV SCH (09:20)
[2020-08-15] MEDS: COLESTIPOL HCL 1 GM TAB PO SCH (09:21)
--- NOTE | 2020-08-15 12:40 | Hospitalist Progress Note ---
Date of Service August 15, 2020 Assessment & Plan (1) Pleural effusion: (2) SOB (shortness of breath): Patient is 64-year-old female with a past medical history of Sjogren's syndrome, skeletal derma requiring extracorporeal photopheresis s/p endovascular AV fistula to right upper extremity, insulin-dependent diabetes mellitus type 1, hypothyroidism, depression and GERD presented to the ED with worsening shortness of breath and cough. Community acquired pneumonia -immunocompromised patient Acute on chronic hypoxic respiratory failure -bacterial pneumonia/possible acute diastolic heart failure Patient presented with worsening shortness of breath. At home she uses 2 L of nasal cannula at nighttime. This morning she is weaned down to room air. Patient remains afebrile. White count is within normal limit. COVID-19 ruled out. proBNP of 243. Chest x-ray revealed moderate to large right-sided pleural effusion with diffuse right lung opacities. Pulmonary is on board. Patient underwent thoracentesis with 2 L of fluid removed on 08/11. Currently cultures remain negative. Cytology remains negative as well. Underwent second thoracentesis on 08/14 with 1700 mL fluid removed with a cloudy discharge. Patient remains on meropenem. Cultures are pending. Bacteremia On admission blood cultures on 08/10 revealed 07/22 Coag neg staph not lugdunensis -likely contaminant Repeat blood cultures on 08/12 negative thus far. Transthoracic echo without any concerning vegetation. EF of greater than 70%. Currently patient remains on vancomycin and meropenem. SHONNA - resolved Currently on daily IV Lasix 20 mg. DM I Prior to admission patient was on insulin pump. Could not recall her pump rings on admission. Holding insulin pump during inpatient. Continue NovoLog sliding scale. Pharmacy on board for glycemic management. Scleroderma S/P right upper extremity AV fistula Patient usually gets photopheresis every 2 weeks. Was about 1-1/2-month ago. Could not make it due to passing away. Follows with Dr Sharla Fortune - Continue home meds HTN - hold lisinopril Chronic Nausea/diarrhea/GERD- continue home meds Hyperthyroidism- Continue synthroid ROJELIO - continue CPAP with O2 HS Anxiety/Depression Continue sertraline, lorazepam recently therefore she is more anxious and depressed. Psychiatry is on board. DVT Prophylaxis -SCDs for now Follows with Dr Jenni Sandy for routine care Admission and Anticipated Discharge Date Admission Date: August 10, 2020 Subjective Ports she is feeling better today. Currently she is on room air. States diarrhea has improved. Denies any shortness of breath or any cough today. Right-sided chest discomfort is improved. Continues to have chronic abdominal pain. Nausea or vomiting. Denies any dysuria. Review of Systems Review of Systems: All systems reviewed & are unremarkable except as noted in HPI & below Physical Exam Physical Exam: General: A&Ox3. Distress due to pain HENT: NCAT, MMM, EOMI Eyes: PERRLA Neck: Supple, normal range of motion CVS: normal rate and rhythm Resp: b/l coarse breath sounds Abdomen: Soft, nondistended and nontender Extremities: Tenderness to palpation with bilateral lower extremities that is chronic as per the patient Neuro: No gross focal deficits identified Skin: warm and dry, no rashes/lesions/errythema MSK: normal ROM, no joint swelling/erythema Results & Data Results & Data ([facility]) Vital Signs (Past 12 Hours) Vital Signs Temp Pulse Pulse Resp BP Pulse Ox 08/15/20 07:43 36.9 C 76 18 130/76 95 08/15/20 07:12 71 08/15/20 04:32 36.8 C 65 18 130/67 90
[2020-08-15] MEDS ORDERED: LOPERAMIDE HCL 2 MG CAP PO ONE (13:30)
--- NOTE | 2020-08-15 14:17 | Pharmacy Report ---
Glycemic Control Progress Note - Date of Service August 15, 2020 - Scope Glycemic Pharmacist consulted for glycemic control to write orders per [facility] inpatient glycemic control protocol. - Objective Accuchecks BSG(last 24 hours):: 08/14/20 08/14/20 08/15/20 16:23 20:16 05:16 Glucose 55 L POC Glucose 141 H 148 H 08/15/20 08/15/20 08/15/20 07:04 07:30 11:27 Glucose POC Glucose 78 102 H 165 H HbA1c:: Hemoglobin A1c 6.6 % (4.5-5.6) H 08/11/20 07:31 - Recent Pertinent Medications The patient is currently receiving: * Basal insulin: Lantus 25 units every 12 hours * Correctional Insulin: Novolog Correction per scale ACHS Goal Range: Low 110 mg/dL - High 140 mg/dL Correction Factor: 25 mg/dL/unit * Prandial insulin: Per carb ratio of 1 unit per 7 grams CHO consumed - Outpatient Anti-Diabetic Meds NOVOLOG PUMP BASAL RATE OF 55 UNITS/DAY CR OF 40 CR OF 6 OR 7 - Assessment & Plan ASSESSMENT: * See progress note from 08/11/20 for more background info, in short: * Pt receiving SQ basal bolus insulin regimen for hyperglycemia secondary to baseline DM (outpatient regimen on hold). Patient on meropenem for possible lung infection. * Patient is currently receiving an average of 62 units of insulin per day * 50 units of basal insulin * 12 units of prandial/correctional insulin * BSGs ranging 109 - 230 mg/dl over the past 24hrs * Changes needed to insulin regimen: * AM Fasting BSG = 78 mg/dl. This is below goal range for patient based on inpatient targets and co-morbidities. The patient is sensitive to changes in basal rates so will reduce by 10% to 45 units today then change to Lantus 22 units BID tomorrow. * Post-prandial BSGs are in range therefore no changes needed to CF/CR. * Total daily dose = ~55-60 units. Reduced insulin appropriately. PLAN FOR INPATIENT GLYCEMIC CONTROL: * CONTINUING Lantus 25 units SQ tonight then REDUCING Lantus to 22 units BID * Continuing correction factor of 25 mg/dl/unit * Continuing carb ratio of 1 unit per 7 grams CHO consumed * Continuing goal range of Low 110 mg/dL - High 140 mg/dL RECOMMENDATIONS FOR DISCHARGE: * Continue current outpatient regimen as HbA1C indicates excellent control. Per CDE note, agree with reduction in basal rates. * Resume insulin pump about 8 hours after last dose of Lantus (e.g. if given in AM then resume at dinnertime; if given in PM then resume when wake up). Thank you.
[2020-08-15] MEDS: LORazepam 0.5 MG TAB PO PRN (16:38)
--- NOTE | 2020-08-15 17:01 | Pulmonology Progress Note ---
Date of Service August 15, 2020 Assessment & Plan (1) Pleural effusion on right: Etiology of right pleural effusion is unclear. Pleural fluid cultures are negative to date. First cytology was negative. Repeat cytology is pending. If repeat cytology is unrevealing, would recommend outpatient pleural biopsy. This will need to be done by thoracic surgery. Pulmonary will follow her as an outpatient as well. Okay for discharge at this time from pulmonary perspective. Would recommend evaluating for home oxygen. We were unable to completely drain the pleural effusion yesterday due to pain. --ROJELIO CPAP nightly and as needed shortness of breath On armodafinil at home --History of scleroderma and Sjogrens Receiving photopheresis as an outpatient. On hydroxychloroquine and pilocarpine as well. No pulmonary hypertension noted on the echo. (2) Acute respiratory failure with hypoxia: (3) ROJELIO (obstructive sleep apnea): (4) Scleroderma: (5) Grief reaction: Admission and Anticipated Discharge Date Admission Date: August 10, 2020 Subjective Patient feeling less short of breath today. No chest pain. Still continues to have bilateral leg pain. Saturating in the 90s on room air. Otherwise no significant change from yesterday. Review of Systems Review of Systems: All systems reviewed & are unremarkable except as noted in HPI & below Physical Exam Physical Exam: Constitutional: No acute distress HEENT: EOMI, PERRLA Respiratory system: Decreased air entry on the right side, no wheeze, no rhonchi CVS: S1-S2 positive, no murmurs or gallops, P2, right-sided permacath Abdomen: Soft, nondistended, positive bowel sounds x4, obese Extremities: +2 pulses bilaterally radialis/ dorsalis pedis, no cyanosis, no edema Neuro: Awake alert oriented x3 Psych: Alert and oriented x3. G/U: No Coe Skin: no rashes, warm and dry Lymphatic: no cervical or axillary lymphadenopathy Results & Data Results & Data ([facility]) Vital Signs (Past 12 Hours) Vital Signs Temp Pulse Pulse Resp BP Pulse Ox 08/15/20 15:51 98.1 F 87 20 129/64 90 08/15/20 07:43 98.4 F 76 18 130/76 95 08/15/20 07:12 71 08/15/20 04:32 98.2 F 65 18 130/67 90 PG Care Time/CCT Total # of Minutes Spent Total Time Spent with Patient: Total time spent is greater than 50% in coordination of care (as documented) at patient's floor/unit and/or counseling patient: Coding Level of Care Code 01935 Subseq Hosp Care Lvl 3 Diagnoses Pleural effusion on right J90 Acute respiratory failure with hypoxia J96.01 ROJELIO (obstructive sleep apnea) G47.33 Scleroderma M34.9 Grief reaction F43.21
[2020-08-15] MEDS ORDERED: INSULIN GLARGINE SOLOSTAR 100 UNITS/ML 3 ML PEN SC SCH (21:00)
[2020-08-16] MEDS ORDERED: INSULIN GLARGINE SOLOSTAR 100 UNITS/ML 3 ML PEN SC SCH (09:00)
--- NOTE | 2020-08-17 15:05 | Discharge Summary ---
Date of Service August 17, 2020 Admission HPI Per Admitting Provider Pt is 64 y/o F with PMH iron deficiency anemia, Sjogrens syndrome, scleroderma requiring extracorporal photopheresis s/p endovascular AV fistula to RUE, depression, GERD, insulin dependent DM I, ROJELIO, hyperthyroidism, presented to ER with c/o SOB x 1 week. Had some right sided CP and upper right abdominal pain after lifting up her . She thought she pulled something initially however SOB has worsened and CP has continued. CP worse with palpation and deep inspiration. C/O cough productive yellow phlegm in the mornings. Chronic loose stools in am and takes immodium, chronic nausea and has phenergan to use as needed. Denies fever/chills, ill contacts. Reports chronic BLE edema. Pt states has not been getting photopheresis done over past couple of weeks secondary to her being ill and unfortunately passing this week. Pt reports increased anxiety. Chronic intermittent dizziness, no worsening. Denies fever/chills, diaphoresis, ALBARRAN, syncope, vision changes, neck pain, palpitations, sore throat, choking, otalgia, rhinorrhea, new paresthesias, extremity weakness, rashes, urinary symptoms. Principal Diagnosis Community acquired pneumonia -immunocompromised patient Acute on chronic hypoxic respiratory failure -bacterial pneumonia/possible acute diastolic heart failur Discharge Exam General: A&Ox3. Distress due to pain HENT: NCAT, MMM, EOMI Eyes: PERRLA Neck: Supple, normal range of motion CVS: normal rate and rhythm Resp: b/l coarse breath sounds Abdomen: Soft, nondistended and nontender Extremities: Tenderness to palpation with bilateral lower extremities that is chronic as per the patient Neuro: No gross focal deficits identified Skin: warm and dry, no rashes/lesions/errythema MSK: normal ROM, no joint swelling/erythema Discharge Data Allergies Allergy/AdvReac Type Severity Reaction Status Date / Time albuterol Allergy Severe SHORTNESS Verified 05/16/20 13:12 OF BREATH niacinamide Allergy Severe Sweating, Verified 05/16/20 13:12 redness, hives, sob nortriptyline Allergy Severe STOPPED Verified 05/16/20 13:12 BREATHING pregabalin Allergy Intermediate ANKLE Verified 05/16/20 13:12 SWELLING ropinirole Allergy Intermediate ANKLE Verified 05/16/20 13:12 SWELLING venlafaxine Allergy Intermediate ANKLE Verified 05/16/20 13:12 SWELLING animal dander Allergy Mild CONGESTION Verified 05/16/20 13:12 birch Allergy Unknown SHOWED UP Verified 05/16/20 13:12 ON ALLERGY TESTING cephalexin Allergy Unknown CAN'T Verified 05/16/20 13:12 REMEMBER clarithromycin Allergy Unknown CAN'T Verified 05/16/20 13:12 REMEMBER clindamycin Allergy Unknown CAN'T Verified 05/16/20 13:12 REMEMBER erythromycin base Allergy Unknown CAN'T Verified 05/16/20 13:12 REMEMBER grass pollen-perennial rye, Allergy Unknown + WITH Verified 05/16/20 13:12 standar ALLERGY TESTING house dust Allergy Unknown ALLERGY Verified 08/11/20 07:36 TESTING mold Allergy Unknown ALLERGY Verified 05/16/20 13:12 TESTED + sumatriptan AdvReac Severe "SEVERE Verified 05/16/20 13:12 JAW AND FACE LOCKING PAIN" aspirin AdvReac Intermediate "SEVERE Verified 05/16/20 13:12 STOMACH CRAMPS, PAIN, SWELLING, NAUSEA, BELCHING" celecoxib AdvReac Intermediate FELT Verified 05/16/20 13:12 "GOING INSANE" doxycycline AdvReac Intermediate EXTREME Verified 05/16/20 13:12 STOMACH PAIN, ANKLE & LEG SWELLING metoclopramide AdvReac Intermediate "EXTREME Verified 05/16/20 13:12 MUSCLE SPASMS IN LEGS, EARS, AND STOMACH" morphine AdvReac Intermediate "FELT Verified 05/16/20 13:12 DIZZY, NAUSEOUS, LOSS OF MYSELF" paroxetine AdvReac Intermediate "TOO Verified 05/16/20 13:12 STRONG OF MED" duloxetine AdvReac Mild SWEATING Verified 05/16/20 13:12 fluoxetine AdvReac Mild SWEATING Verified 05/16/20 13:12 oxycodone AdvReac Mild SPACED OUT Verified 05/16/20 13:12 propoxyphene AdvReac Mild SPACED OUT Verified 05/16/20 13:12 azelastine AdvReac Unknown NOSE BLEEDS Verified 05/16/20 13:12 Consultations 08/10/20 19:19 ED Decision to Admit Stat 08/11/20 07:00 Consult Pulmonology Routine 08/11/20 16:23 Consult Psychiatry Routine Ordered Studies 08/11/20 10:56 US point of care ultrasound Urgent 08/11/20 15:06 US liver Routine 08/11/20 15:11 CT chest diagnostic wo con Routine 08/11/20 15:30 CT abdomen wo con Routine 08/13/20 13:11 US point of care ultrasound Urgent 08/14/20 15:28 US point of care ultrasound Routine Hospital Course (1) Pleural effusion: (2) SOB (shortness of breath): Patient is 64-year-old female with a past medical history of Sjogren's syndrome, skeletal derma requiring extracorporeal photopheresis s/p endovascular AV fistula to right upper extremity, insulin-dependent diabetes mellitus type 1, hypothyroidism, depression and GERD presented to the ED with worsening shortness of breath and cough. Community acquired pneumonia -immunocompromised patient Acute on chronic hypoxic respiratory failure -bacterial pneumonia/possible acute diastolic heart failure Patient presented with worsening shortness of breath. At home she uses 2 L of nasal cannula at nighttime. COVID-19 was ruled out. proBNP of 243. Chest x-ray revealed moderate to large right-sided pleural effusion with diffuse right lung opacities. Pulmonary medicine was consulted. Patient underwent thoracentesis with 2 L of fluid removed on 08/11. Cultures remain negative at the time of discharge. Cytology remains negative as well. Underwent second thoracentesis on 08/14 with 1700 mL fluid removed with a cloudy discharge. Cultures were pending at the time of discarhge. Patient was on meropenem during this hospitalization which was stopped prior to discharge. Bacteremia On admission blood cultures on 08/10 revealed 07/22 Coag neg staph not sandy gdunensis -likely contaminant Repeat blood cultures on 08/12 negative thus far. Transthoracic echo without any concerning vegetation. EF of greater than 70%. Currently was on vancomycin during this hospitalization which was stopped prior to discharge because likely contamination culture. SHONNA - resolved DM I Prior to admission patient was on insulin pump. Could not recall her pump rings on admission. Scleroderma S/P right upper extremity AV fistula Patient usually gets photopheresis every 2 weeks. Was about 1-1/2-month ago. Could not make it due to passing away. Follows with Dr Magdaleno; f/u as an OP. Sjogren - Continue home meds HTN -lisinopril Chronic Nausea/diarrhea/GERD- continue home meds Hyperthyroidism- Continue synthroid ROJELIO - continue CPAP with O2 HS Anxiety/Depression Continue sertraline, lorazepam recently therefore she is more anxious and depressed. Psychiatry is on board. Total Time Total Time Spent Total Time Spent (In Minutes): 35 Discharge Plan Discharge Items Patient Disposition: Home - Self-Care Reason For Visit: SOB Discharge Diagnosis: Community acquired pneumonia -immunocompromised patient Acute on chronic hypoxic respiratory failure -bacterial pneumonia/possible acute diastolic heart failure acute kidney in Condition on Discharge: Good Activity: Resume your previous activity Non-emergency contact: Primary Care Provider Call non-emergency contact if: your symptoms worsen Follow-up/Referrals: Jenni Sandy DO [Primary Care Provider] - Diet: Carb Consistent or DM2 Addtl Attending Provider Instructions: You will need to follow-up with your primary care physician, ecologist and administrative aide within 1 week. Pending Studies at Discharge: Yes Stand-Alone Forms: [employer], Smoking Cessation Medications and DC Order Prescriptions: New amlodipine [Norvasc] 5 mg Tablet 5 mg PO QAM Qty: 30 RF: 0 Continued pilocarpine HCl 5 mg tablet 3 tab PO TID RF: 0 omega-3 fatty acids 1,000 mg capsule 1,000 mg PO DAILY RF: 0 tolterodine [Detrol LA] 4 mg capsule,extended release 24hr 4 mg PO QAM RF: 0 sertraline [Zoloft] 100 mg tablet 100 mg PO HS RF: 0 prochlorperazine maleate [Compazine] 10 mg tablet 10 mg PO Q8H PRN (Reason: Dizziness) RF: 0 aspirin [Adult Low Dose Aspirin] 81 mg tablet,delayed release (DR/EC) 81 mg PO DAILY RF: 0 promethazine 25 mg tablet 25 mg PO BID PRN (Reason: Nausea) RF: 0 gabapentin 300 mg capsule 600 mg PO BID RF: 0 fluticasone propionate [Flonase Allergy Relief] 50 mcg/actuation spray,suspension 2 sprays INTNAS DAILY RF: 0 rosuvastatin [Crestor] 20 mg tablet 20 mg PO QAM RF: 0 ascorbic acid (vitamin C) 500 mg capsule 500 mg PO DAILY RF: 0 cranberry 400 mg capsule 400 mg PO DAILY RF: 0 tramadol 50 mg tablet 50 mg PO Q6H PRN (Reason: Pain) RF: 0 Probiotic 3 billion cell Capsule 3,000 mmu cells PO BID RF: 0 magnesium 200 mg Tablet 200 mg PO DAILY RF: 0 Imodium Multi-Symptom Relief 2-125 mg Tablet 2 tab PO QAM RF: 0 buspirone 5 mg Tablet 5 mg PO BID RF: 0 primidone 50 mg Tablet 50 mg PO HS RF: 0 lisinopril 20 mg Tablet 20 mg PO QAM RF: 0 omeprazole 40 mg Capsule,Delayed Release(Dr/Ec) 40 mg PO BID RF: 0 hydroxychloroquine 200 mg Tablet 400 mg PO QAM RF: 0 colestipol 1 gram Tablet 1 g PO BID RF: 0 ferrous gluconate 324 mg (37.5 mg iron) Tablet 324 mg PO DAILY RF: 0 Combivent Respimat 20-100 mcg/actuation Mist 1 puff INHALATION QID RF: 0 baclofen 10 mg Tablet 20 mg PO BID RF: 0 armodafinil 250 mg tablet 250 mg PO DAILY RF: 0 levothyroxine [Synthroid] 175 mcg Tablet 175 mcg PO DAILY RF: 0 sucralfate 100 mg/mL Suspension 10 ml PO QID RF: 0 lorazepam 0.5 mg tablet 0.5 mg PO Q8H PRN (Reason: Anxiety) RF: 0 simethicone 80 mg Tablet 80 mg PO Q6H PRN (Reason: Gi Upset) RF: 0 insulin aspart U-100 [Novolog U-100 Insulin aspart] 100 unit/mL solution RF: 0 Discharge Orders: Discharge Order (Routine); Ordered 08/15/20 Ordered By: Zaida Giullen Admission Data Admit Date/Time: 08/10/20 19:47 Attending Provider: Zaida Guillen Admit Provider: Sondra Watson I. Primary Care Provider: Jenni Sandy Other Providers: Sondra Watson I. ; Indira Kincaid ; Kymberly Hernandez ; [place] Other Interventions: Discharge Summary Assessment (RN) Last Done: 08/15/20 17:21
== END 2020-08-15 18:03 | disposition home health service (06) | DRG 186 ==
LOC: ED 16:34 → 2S 19:47 → SUATTDRO 19:47 → 2S 20:45